=== PATIENT | male | born 1950 | race Caucasian/White ===

== ENCOUNTER 2018-06-06 16:37 | Inpatient (IN) | payer MEDICARE, OTHER ==
[2018-06-06] MEDS ORDERED: hydrALAZINE 20 MG/ML VIAL ONE ×2 (17:46→21:14)
[2018-06-06 18:19] LABS: Bilirubin Negative (Negative); Blood, Urine Trace (Negative); Clarity CLOUDY (Clear); Glucose, Urine (Dipstick) Negative (Negative); Leukocyte Moderate (Negative); Nitrite Negative (Negative); Protein, Urine (Dipstick) > or equal to 300 mg/dL (Neg-Trace); Specific Gravity, Urine 1.023 (1.002-1.036)
[2018-06-06 18:21] LABS: Bacteria/HPF 1+ HPF (None Seen); Hyaline Casts/LPF 0-3 HYALINE CAST LPF (0-3 Hyaline); Squamous Epithelial 0-3 HPF (0-3)
[2018-06-06 18:24] LABS: Yeast-AUWi Flag 117.9 (0-25.0)
[2018-06-06 18:24] LABS: #Eosinphils 0.1 thou/uL (0.0-0.7); #Lymphocytes 0.9 thou/uL (1.20-3.40); #Monocytes 0.5 thou/uL (0.11-0.59); %Basophils 0.2 % (0.0-1.0); %Eosinophils 0.8 % (0.0-10.0); %Lymphocytes 8.6 % (21.0-51.0); %Monocytes 4.9 % (0.0-10.0); %Neutrophils 85.5 % (42.0-75.0); Hemoglobin 20.4 g/dL (14.0-18.0); Mean Corpuscular HGB CONC 32.2 g/dL (32.0-36.0); Mean Corpuscular Hemoglobin 27.3 pg (27.0-31.0); Mean Corpuscular Volume 84.7 fL (78.0-98.0); Mean Platelet Volume 7.9 fL (7.4-10.4); Platelet Count 209 thou/uL (130-400); RBC Distribution Width 15.3 % (11.5-14.5); Red Blood Cell (RBC) Count 7.48 mill/uL (4.70-6.10); White Blood Cell (WBC) Count 10.6 thou/uL (4.8-10.8)
[2018-06-06 18:30] LABS: Yeast-All Forms 1+ HPF (None Seen)
[2018-06-06] MEDS ORDERED: cefTRIAXone\\ROCEPHIN 1 GM VIAL ONE (18:35)
[2018-06-06 18:45] LABS: ALT (SGPT) 22 U/L (8-55); AST (SGOT) 25 U/L (5-34); Albumin 4.5 g/dL (3.4-4.8); Alkaline Phosphatase 99 U/L (40-150); Anion Gap 20 mmol/L (10-20); BUN (Urea Nitrogen) 27 mg/dL (8.4-25.7); Bilirubin, Total 0.8 mg/dL (0.2-1.2); Calc. Creatinine Clearance 0 mL/min (70-130); Calcium 10.7 mg/dL (7.8-10.44); Carbon Dioxide 27 mmol/L (23-31); Chloride 92 mmol/L (98-107); Estimated GFR-MDRD 50; Globulin 3.9 g/dL (2.4-3.5); Glucose 130 mg/dL (80-115); Protein, Total 8.4 g/dL (5.8-8.1); Sodium 136 mmol/L (136-145)
[2018-06-06 18:49] LABS: Potassium 2.9 mmol/L (3.5-5.1)
[2018-06-06 19:03] LABS: CKMB 3.8 ng/mL (0-6.6)
[2018-06-06] MEDS ORDERED: niCARdipine 20MG In NaCl 20 MG/200 ML BAG ONE (19:18)
[2018-06-06] MEDS ORDERED: Potassium Chloride 20 MEQ/100 ML PREMIX BAG ONE (19:19)
[2018-06-06] MEDS ORDERED: Potassium Chloride 20 MEQ in Premix Bag 1 BAG IVPB SCH (19:30)
[2018-06-06 19:34] LABS: PTT 34.6 SEC (22.9-36.1); Prothrombin Time 12.8 SEC (12.0-14.7)
--- NOTE | 2018-06-06 19:37 | RAD ---
FRONTAL VIEW CHEST: 06/06/18 COMPARISON: 08/16/14. INDICATION: Abdominal pain with nausea and vomiting. FINDINGS: There is no evidence of consolidation, effusion or pneumothorax. The cardiac silhouette is normal in size. There is vascular calcifications. IMPRESSION: No focal consolidation. POS: [facility]
[2018-06-06] MEDS ORDERED: Ondansetron PF 4 MG/2 ML Vial IVP PRN (20:26)
[2018-06-06] MEDS ORDERED: Loperamide HCl 2 MG CAP PO PRN (20:26)
[2018-06-06] MEDS ORDERED: Atorvastatin Calcium 20 MG TAB PO SCH (21:00)
[2018-06-06 21:10] LABS: Amphetamine Not Detected (NotDetected); Barbiturates Screen Not Detected (NotDetected); Benzodiazepine Screen Not Detected (NotDetected); Cocaine Metabolite Screen Not Detected (NotDetected); Medtox Control Line Valid? VALID (VALID); Medtox Reader # READER 1; Methadone Not Detected (NotDetected); Methamphetamine Not Detected (NotDetected); Opiate Screen Not Detected (NotDetected); Oxycodone Screen Not Detected (NotDetected); Phencyclidine (PCP) Not Detected (NotDetected); THC/Cannabinoid Screen Not Detected (NotDetected); Tricyclic Screen Not Detected (NotDetected)
--- NOTE | 2018-06-06 21:16 | CT ---
CT BRAIN NONCONTRAST: DATE: 06/06/18 at 6:56 p.m. HISTORY: 67-year-old male with headache. COMPARISON: CT of 08/13/14. FINDINGS: There is a new finding of a very small amount of moderate hyperdensity involving lateral peripheral c ortex of left frontal lobe superolaterally. There is a similar such finding involving one of the right upper parietal gyri. There is a round, punctate, approximately 2 mm focus of hyperdensity in the left occipital cortex. All three of these are new since 2014. There is an old lacunar infarction at the junction between the right caudate head and adjacent anteri or portions of the right basal ganglia, internal capsule and external capsule. This may have been acu te or subacute on the previous CT of 2014, and is now old. There is a tiny old lacunar infarction in the left basal ganglia/external capsule junction, which occ urred sometime after the previous CT. Again noted are the severe chronic ischemic white matter changes in the periventricular, deep, and hopson bcortical white matter of the cerebrum bilaterally. No obstructive hydrocephalus, mass effect, midlin e shift, subdural hemorrhage, epidural hemorrhage, or extra-axial fluid collection. No calvarial frac ture. IMPRESSION: 1. Three, new, very small foci of hemorrhage, apparently intraparenchymal, involving left fronta l cortex and right parietal cortex (both petechial type), plus one punctate such focus in the left pa rieto-occipital junction. The etiology of these is uncertain. 2. Small old lacunar infarction of right corpus striatum, and a tiny one at the left basal gangl ia. 3. Severe chronic ischemic white matter changes. 4. MRI of the brain may be useful (preferably with and without contrast, unless contraindicated) . BARBIE Javed POS: [facility]
[2018-06-06] MEDS ORDERED: Labetalol HCl 200 MG in Sodium Chloride 0.9% 250 ML 160 ML IVPB SCH (22:30)
[2018-06-06] MEDS ORDERED: Lorazepam 2 MG/ML VIAL ONE (22:37)
[2018-06-06] MEDS ORDERED: SODIUM CHLORIDE 0.9% IVPB SCH (23:00)
[2018-06-06] MEDS ORDERED: LABETALOL HCL IVPB SCH (23:00)
--- NOTE | 2018-06-06 23:29 | CT ---
HEAD CT NONCONTRAST: 06/06/18 COMPARISON: Earlier same date. INDICATION: History of altered mental status. History of parenchymal hemorrhage, followup. Blush of subcentimeter hyperdensity of the right parietal lobe is redemonstrated, grossly stable. Pun ctate hyperdensity of the left occipital lobe is less conspicuous. Punctate foci of left frontal lobe hyperdensity have not significantly changed. These findings remain superimposed upon a background of moderate chronic microvascular ischemic disea se as well as deep white matter infarctions and age indeterminate infarction of the right basal gangl ia. No new midline shift. Exam is otherwise grossly stable. Incidental note of circumferential mucosa l thickening and inspissated secretions of the right maxillary sinus with associated wall thickening indicating component of chronicity. Mild chronic appearing concavity of the right nasal bone may rel ate to sequela from remote injury. Correlate with history. IMPRESSION: No significant interval detrimental change. As was previously recommended, constellation of findings would be more optimally assessed with followup brain MRI. POS: [facility]
[2018-06-07 00:46] LABS: CKMB 2.9 ng/mL (0-6.6)
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
[2018-06-07 03:39] LABS: #Lymphocytes 1.4 thou/uL (1.20-3.40); #Monocytes 0.8 thou/uL (0.11-0.59); #Neutrophils 7.6 thou/uL (1.40-6.50); %Basophils 0.3 % (0.0-1.0); %Eosinophils 0.4 % (0.0-10.0); %Lymphocytes 14.3 % (21.0-51.0); %Monocytes 7.9 % (0.0-10.0); Mean Corpuscular HGB CONC 33.1 g/dL (32.0-36.0); Mean Corpuscular Volume 84.7 fL (78.0-98.0); Mean Platelet Volume 7.9 fL (7.4-10.4); Platelet Count 207 thou/uL (130-400); RBC Distribution Width 15.4 % (11.5-14.5); Red Blood Cell (RBC) Count 6.42 mill/uL (4.70-6.10); White Blood Cell (WBC) Count 9.9 thou/uL (4.8-10.8)
[2018-06-07 03:46] LABS: Anion Gap 18 mmol/L (10-20); BUN (Urea Nitrogen) 27 mg/dL (8.4-25.7); Calc. Creatinine Clearance 0 mL/min (70-130); Calcium 9.5 mg/dL (7.8-10.44); Carbon Dioxide 27 mmol/L (23-31); Chloride 95 mmol/L (98-107); Estimated GFR-MDRD 49; Glucose 132 mg/dL (80-115); Sodium 137 mmol/L (136-145)
[2018-06-07 03:55] LABS: Potassium 2.7 mmol/L (3.5-5.1)
[2018-06-07] MEDS ORDERED: Potassium Chloride 20 MEQ in Premix Bag 1 BAG IVPB SCH ×2 (06:00→07:00)
[2018-06-07] MEDS: Potassium Chloride 20 MEQ in Sodium Chloride 0.9% 250 ML 250 ML IVPB SCH ×2 (06:38→09:14)
[2018-06-07] MEDS: hydrALAZINE 20 MG/ML VIAL SLOW IVP PRN ×6 (06:51→18:45)
[2018-06-07 07:23] VITALS: BMI 33.5
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
[2018-06-07] MEDS ORDERED: Aspirin 325 mg Enteric Coated Tablet PO SCH (08:00)
--- NOTE | 2018-06-07 08:05 | CT ---
PRELIMINARY REPORT/[facility]/EMERGENTY AFTER-HOURS PROCEDURE CT Head Without Contrast EXAM DATE/TIME: 06/07/2018 4:59 AM CLINICAL HISTORY: 67 years old, male; Abnormal findings; Abnormal radiologic findings of head/skull; Not specified; Pat ient HX: Iph follow up brain CT. Patient was combative and AMS recently TECHNIQUE: Axial computed tomography images of the head/brain without contrast. COMPARISON: CT Brain WO Con 06/06/2018 11:03 PM FINDINGS: Brain: There is no significant change in posterior right parietal subcortical focus of increased attenuation suspicious for small parenchymal hemorrhage. No mass effect. There are scattered foci of decreased a ttenuation in the periventricular and subcortical white matter, nonspecific, but most consistent with chronic small vessel ischemic changes in patient of this age. Ventricles / cisterns / extra-axial spaces: There is no hydrocephalus, midline shift, or acute extra-axial fluid collection. There is no sulcal e ffacement. Sinuses: No findings of acute sinusitis or suspicious sinus mass. Bone: No acute fracture or displacement. Impression: No significant change. Thank you for allowing us to participate in the care of your patient. Dictated and Authenticated by: Martell Fisher MD 06/07/2018 5:33 AM Central Time ([place] & [place]) FINAL REPORT EMERGENCY AFTER HOURS NONCONTRAST CT HEAD: Date: 06/07/18 HISTORY: Follow-up intracranial hemorrhage. Seizure. COMPARISON: Study on 06/06/18. IMPRESSION: 1. Area of increased density within the right parietal lobe related to is again seen, but less consp icuous. The hyperdense focus within the left occipital lobe is not definitely visualized on today's e xam. Hyperdense focus in the left anterior frontal lobe is less conspicuous. No definite new hyperden se foci are seen. As noted on prior exam, these findings are suggestive of small areas of hemorrhage. Exact etiology is uncertain. As previously recommended, findings would be more optimally evaluated w ith follow-up brain MRI. 2. Moderate to severe chronic small vessel ischemic changes with lacunar infarctions involving the r ight basal ganglia, of which the age is indeterminate, but probably more remote in origin. No acute c ortical infarction is seen. Findings are in disagreement with the preliminary report by Rafael. The areas of hyperdensity within th e parenchyma were not mentioned, although these areas are less conspicuous on today's exam compared t o prior studies. POS: [facility]
--- NOTE | 2018-06-07 08:48 | PRG ---
DATE OF SERVICE: 06/07/2018 SUBJECTIVE: I personally interviewed and examined the patient, and agreed with documentation of Kusum Thacker PA-C, dated 06/06/2018. Briefly, Mr. Boyce came to our Emergency Department yesterday with headache and was found to have hypertensive emergency. CT examination of the brain revealed punctate areas of parenchymal or subarachnoid hemorrhage posteriorly, not causing mass effect, but prompting a Neurosurgery consultation. Mr. 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 Prior to this, with the new findings on brain imaging were more lobar and cortical. Admission hemoglobin was over 20 with a creatinine of 1.4. Toxicology was negative. Overnight, Mr. Boyce has been watched in the ICU. Aggressive blood pressure management has been initiated, and a repeat CT scan is available this morning. Blood pressures as I entered the room were in the 140s. There have been no fevers recorded. OBJECTIVE: On examination, Mr. Boyce has injection of both sclerae. Cranial nerves are working well. There is no speech deficit that I can appreciate. There is no lateralized motor or sensory deficit. LABORATORY DATA: Hemoglobin is coming down slowly, it is under 20, creatinine is still 1.4. CT examination this morning shows some resolution of the blood products suggesting that the bleeding was extra-axial. The right occipital hyperdensity is still somewhat visible. ASSESSMENT AND PLAN: Mr. Boyce' hypertensive emergency and increased hematocrit will be investigated by our colleagues in the medical service. Neurosurgical intervention for the punctate areas of hyperdensity is not required. An MRI scan will show if he has any severe posterior encephalopathy or hypertensive encephalopathy from his systolics in the 240s yesterday. After MR imaging is done, we will review the images and make further comment. Job ID: [id number]
[2018-06-07] MEDS ORDERED: Enoxaparin Sodium 40 MG/0.4 ML SYRINGE SC SCH (09:00)
[2018-06-07] MEDS ORDERED: Lactated Ringer's 1,000 ML IV SCH (11:15)
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
[2018-06-07] MEDS ORDERED: Amlodipine 10 MG TAB PO SCH (15:15)
[2018-06-07 15:50] LABS: Anion Gap 15 mmol/L (10-20); BUN (Urea Nitrogen) 26 mg/dL (8.4-25.7); Calc. Creatinine Clearance 75 mL/min (70-130); Calcium 9.3 mg/dL (7.8-10.44); Carbon Dioxide 26 mmol/L (23-31); Chloride 98 mmol/L (98-107); Estimated GFR-MDRD 51; Glucose 122 mg/dL (80-115); Sodium 136 mmol/L (136-145)
[2018-06-07 15:55] LABS: Potassium 2.7 mmol/L (3.5-5.1)
[2018-06-07] MEDS ORDERED: Potassium Chloride 20 MEQ TAB PO SCH ×2 (16:15→20:00)
--- NOTE | 2018-06-07 18:12 | PDOC.PN ---
- Subjective Encounter Start Date: 06/07/18 Encounter Start Time: 15:11 Subjective: Complaining of headache. -: No limb weakness, chest pain or vomiting. -: Awaiting MRI - Objective Resuscitation Status - Order Detail: 06/06/18 20:26 Resuscitation Status Routine Resuscitation Status: FULL: Full Resuscitation MAR Reviewed: Yes Vital Signs & Weight: Vital Signs (12 hours) Temp Pulse Resp BP BP Pulse Ox 06/07/18 17:49 82 06/07/18 17:33 201/114 H 06/07/18 17:07 82 06/07/18 16:39 97.4 F L 82 18 219/109 H 94 L 06/07/18 15:11 67 180/76 H 06/07/18 13:15 67 180/76 H 06/07/18 12:09 67 180/76 H 06/07/18 12:05 99.8 F H 180/76 H 06/07/18 09:15 71 181/77 H 06/07/18 08:30 100.1 F H 71 21 H 160/67 H 94 L 06/07/18 08:00 94 L 06/07/18 06:51 65 177/81 H Weight Admit Weight 227 lb 4.745 oz Weight 227 lb 4.745 oz Most Recent Monitor Data Heart Rate from ECG 85 NIBP 183/86 NIBP BP-Mean 118 Respiration from ECG 21 SpO2 93 Result Diagrams: 06/07/18 03:21 06/07/18 15:11 Phys Exam - Physical Examination HEENT: PERRLA, moist MMs Neck: no nodes, no JVD Respiratory: no wheezing, no rales Cardiovascular: RRR, no significant murmur Gastrointestinal: soft, non-tender, no distention Musculoskeletal: pulses present Trace left leg edema Neurological: non-focal, moves all 4 limbs Psychiatric: A&O x 3 Dx/Plan (1) Hypertensive emergency Code(s): I16.1 - HYPERTENSIVE EMERGENCY Status: Acute (2) Intraparenchymal hematoma of brain Code(s): S06.360A - TRAUM HEMOR CEREB, W/O LOSS OF CONSCIOUSNESS, INIT Status : Acute (3) Elevated troponin Code(s): R74.8 - ABNORMAL LEVELS OF OTHER SERUM ENZYMES Status: Acute (4) UTI (urinary tract infection) Status: Acute (5) Acute encephalopathy Code(s): G93.40 - ENCEPHALOPATHY, UNSPECIFIED Status: Acute - Plan Start amlodipine 10 mg daily -: Continue prn IVP hydralazine -: Continue other treatment and close monitoring -: Awaiting MRI * .
--- NOTE | 2018-06-07 19:15 | MRI ---
MRI OF BRAIN PERFORMED WITHOUT CONTRAST ENHANCEMENT: 06/07/18 HISTORY: Followup of areas of hemorrhage noted on previous CT exams. COMPARISON: CT studies of 06/07 and 06/06/18. Considerable motion artifact is present on this examination. There is generalized ventricular and sulcal prominence. There is prominent chronic ischemic white mat ter change. On the gradient sequence, there are multiple areas of blooming artifact seen with several punctate ar eas in the cerebellum and also changes which are near the eason-white matter junction over the right f rontal. Also tiny punctate areas over the left frontal and biparietal convexities. These would sugges t small areas of microhemorrhage. IMPRESSION: 1. Atrophy and chronic white matter change. 2. Small punctate foci of hemorrhage in both the cerebellum and cerebrum. These areas could be o n the basis of an entity such as an amyloid angiopathy. Small punctate areas related to hypertensive hemorrhage would not have this typical distribution. Tiny hemorrhagic mass is also felt to be unlikel y. This does not have the typical appearance of multiple vascular malformations. POS: ORTEGA
[2018-06-07] MEDS: cefTRIAXone\\ROCEPHIN 1 GM in Sodium Chloride 0.9% 100 ML IVPB SCH (19:26)
[2018-06-07] MEDS: cloNIDine 0.1 MG TAB PO PRN (20:31)
[2018-06-08] MEDS: cloNIDine 0.1 MG TAB PO PRN (04:02)
[2018-06-08] MEDS: hydrALAZINE 20 MG/ML VIAL SLOW IVP PRN (05:32)
[2018-06-08 05:38] LABS: Anion Gap 13 mmol/L (10-20); BUN (Urea Nitrogen) 26 mg/dL (8.4-25.7); Calc. Creatinine Clearance 71 mL/min (70-130); Calcium 9.1 mg/dL (7.8-10.44); Carbon Dioxide 29 mmol/L (23-31); Chloride 99 mmol/L (98-107); Estimated GFR-MDRD 48; Glucose 103 mg/dL (80-115); Magnesium 2.3 mg/dL (1.6-2.6); Potassium 3.4 mmol/L (3.5-5.1); Sodium 138 mmol/L (136-145)
[2018-06-08] MEDS ORDERED: Labetalol 100 MG TAB PO SCH (09:00)
[2018-06-08] MEDS: Losartan 25 MG TAB PO SCH (09:56)
[2018-06-08] MEDS: Amlodipine 10 MG TAB PO SCH (09:57)
[2018-06-08] MEDS ORDERED: Lactated Ringer's 1,000 ML IV SCH (12:00)
--- NOTE | 2018-06-08 12:01 | PDOC.PN ---
- Subjective Encounter Start Date: 06/08/18 Encounter Start Time: 12:00 Subjective: Headache has subsided. Denied nausea and vomiting. -: Denied focal weakness, visual or speech change. -: tolerating oral intake - Objective Resuscitation Status - Order Detail: 06/06/18 20:26 Resuscitation Status Routine Resuscitation Status: FULL: Full Resuscitation MAR Reviewed: Yes Vital Signs & Weight: Vital Signs (12 hours) Temp Pulse Resp BP BP Pulse Ox 06/08/18 09:57 64 06/08/18 09:56 64 06/08/18 08:55 93 L 06/08/18 07:58 97.7 F 69 20 178/81 H 93 L 06/08/18 07:10 91 L 06/08/18 07:06 68 20 06/08/18 06:55 67 184/86 H 06/08/18 05:32 61 187/88 H 06/08/18 04:02 177/81 H 06/08/18 04:00 98.5 F 67 19 177/81 H 93 L Weight Admit Weight 227 lb 4.745 oz Weight 227 lb 4.745 oz Most Recent Monitor Data Heart Rate from ECG 85 NIBP 183/86 NIBP BP-Mean 118 Respiration from ECG 21 SpO2 93 I&O: 06/07/18 06/08/18 06/09/18 06:59 06:59 06:59 Intake Total 50 350 Output Total 300 Balance -250 350 Result Diagrams: 06/07/18 03:21 06/08/18 04:40 Phys Exam - Physical Examination HEENT: PERRLA, moist MMs, sclera anicteric Neck: no nodes, no JVD, supple, full ROM Respiratory: no wheezing, no rhonchi few bibasal crackles Cardiovascular: RRR, no significant murmur, no rub Gastrointestinal: soft, non-tender, no distention, positive bowel sounds Musculoskeletal: no edema, pulses present Neurological: non-focal, normal sensation, moves all 4 limbs Psychiatric: normal affect, A&O x 3 Skin: no rash Dx/Plan (1) Acute encephalopathy Code(s): G93.40 - ENCEPHALOPATHY, UNSPECIFIED Status: Acute (2) Hypertensive emergency Code(s): I16.1 - HYPERTENSIVE EMERGENCY Status: Acute (3) Elevated troponin Code(s): R74.8 - ABNORMAL LEVELS OF OTHER SERUM ENZYMES Status: Acute (4) UTI (urinary tract infection) Status: Acute (5) Intraparenchymal hematoma of brain Code(s): S06.360A - TRAUM HEMOR CEREB, W/O LOSS OF CONSCIOUSNESS, INIT Status : Acute (6) CVA (cerebral vascular accident) Code(s): I63.9 - CEREBRAL INFARCTION, UNSPECIFIED Status: Acute (7) Hypokalemia Code(s): E87.6 - HYPOKALEMIA Status: Acute (8) Polycythemia Code(s): D75.1 - SECONDARY POLYCYTHEMIA Status: Acute - Plan Add losartan and labetalol to amlodipine to get adequate BP control. -: Replete serum potassium -: Get Neurology consult as well PT/OT and BUSINESS SUPPORT ASSOCIATE -: Start gentle IVF hydration to see if there is a reversible MASSIEL -: continue neurochecks * .
[2018-06-08] MEDS ORDERED: Potassium Chloride 20 MEQ TAB PO SCH ×2 (12:15→19:00)
[2018-06-08] MEDS ORDERED: Lactated Ringer's 500 ML IV SCH (14:30)
--- NOTE | 2018-06-08 16:10 | PDOC.EVN ---
Event Note - Event Note Event Note: Developed acute mental status changes of decreased responsiveness. SBP was noted to be 119. patient recieved amlodipine, lorsatan and labetalol earlier for SBP that has been consistent at 180 - 200 Treated with LR bolus with improved of BP and mental status. We will DC labetalol and monitor BP closely.
[2018-06-08] MEDS: cefTRIAXone\\ROCEPHIN 1 GM in Sodium Chloride 0.9% 100 ML IVPB SCH (19:22)
--- NOTE | 2018-06-08 19:45 | PRG ---
DATE OF SERVICE: SERVICE: Pulmonary Medicine. INTERVAL HISTORY: The patient is doing fine from respiratory standpoint. He is breathing comfortably. There has been no interval change to his condition. Denies any chest pain, nausea, vomiting, fevers or chills. He is resting very comfortably. He woke up smoothly. He answered all my questions. Afterwards, he went back to sleep. PHYSICAL EXAMINATION: VITAL SIGNS: Afebrile with a T-max of 99.6. Pulse 60, blood pressure 142/67, respirations 20, and saturation 93% on 2 L nasal cannula. GENERAL: The patient is awake and alert, in no apparent distress. LUNGS: Decent air entry. There is a prolonged expiratory phase. No wheezing. HEART: Normal rate, regular. ABDOMEN: Soft, nontender, and nondistended. Bowel sounds are positive. MUSCULOSKELETAL: No cyanosis or clubbing. There is no pitting in the bilateral lower extremities. NEUROLOGIC: Grossly nonfocal. LABORATORY DATA: Creatinine 1.46 and roughly stable. Potassium 3.4. Respiratory virus panel is unremarkable. Blood cultures x2, urine culture, influenza A and B are also negative. IMAGING: MRI of the brain demonstrates no atrophy and chronic white matter change. There is small punctate foci of hemorrhage in both the cerebellum and cerebrum. Amyloid angiopathy is a possibility. Hemorrhagic masses are felt to be much less likely. ASSESSMENT: 1. Hypertensive emergency. 2. Gastroenteritis, recent. 3. Dehydration, mild. 4. Cerebrovascular accident, very small. DISCUSSION AND PLAN: We will wean away oxygen as tolerated. The patient is doing fine from respiratory standpoint. He has no further requirements for inpatient Pulmonary Critical Care opinion, and I will sign off. Potassium will be replaced today. I do believe that much of his hypertension came from his previous dehydration state. As such, it would not surprise me if he needs fewer antihypertensive medications through time. Job ID: [id number]
[2018-06-09 05:41] LABS: #Basophils 0.1 thou/uL (0.0-0.2); #Eosinphils 0.2 thou/uL (0.0-0.7); #Lymphocytes 1.3 thou/uL (1.20-3.40); #Neutrophils 6.3 thou/uL (1.40-6.50); %Basophils 0.7 % (0.0-1.0); %Eosinophils 2.2 % (0.0-10.0); %Lymphocytes 14.5 % (21.0-51.0); %Monocytes 11.2 % (0.0-10.0); %Neutrophils 71.5 % (42.0-75.0); Hemoglobin 15.4 g/dL (14.0-18.0); Mean Corpuscular HGB CONC 32.5 g/dL (32.0-36.0); Mean Corpuscular Hemoglobin 28.1 pg (27.0-31.0); Mean Corpuscular Volume 86.3 fL (78.0-98.0); Mean Platelet Volume 7.9 fL (7.4-10.4); Platelet Count 164 thou/uL (130-400); RBC Distribution Width 15.7 % (11.5-14.5); White Blood Cell (WBC) Count 8.9 thou/uL (4.8-10.8)
[2018-06-09 05:59] LABS: ALT (SGPT) 13 U/L (8-55); AST (SGOT) 15 U/L (5-34); Albumin 3.3 g/dL (3.4-4.8); Alkaline Phosphatase 63 U/L (40-150); Anion Gap 13 mmol/L (10-20); BUN (Urea Nitrogen) 27 mg/dL (8.4-25.7); Bilirubin, Total 0.5 mg/dL (0.2-1.2); Calc. Creatinine Clearance 81 mL/min (70-130); Calcium 8.9 mg/dL (7.8-10.44); Carbon Dioxide 27 mmol/L (23-31); Chloride 101 mmol/L (98-107); Estimated GFR-MDRD 56; Globulin 2.5 g/dL (2.4-3.5); Glucose 100 mg/dL (80-115); Potassium 3.7 mmol/L (3.5-5.1); Protein, Total 5.8 g/dL (5.8-8.1); Sodium 137 mmol/L (136-145)
[2018-06-09] MEDS: Amlodipine 10 MG TAB PO SCH ×2 (08:35→20:03)
[2018-06-09] MEDS: Losartan 25 MG TAB PO SCH (08:35)
--- NOTE | 2018-06-09 10:44 | CON ---
DATE OF CONSULTATION: 06/09/2018 NEUROLOGY CONSULTATION CONSULTING PHYSICIAN: Hospitalist Service. IMPRESSION: Multiple areas of cerebral hemorrhage suggesting the possibility of amyloid angiopathy. PLAN: 1. Discontinue aspirin. 2. Control blood pressure. HISTORY OF PRESENT ILLNESS: Mr. Boyce is a 67-year-old man came in with complaints of a headache. His CT scan of the brain showed three areas of hemorrhage. He was initially hypertensive with blood pressures around 207/89. He became a bit lethargic after they dropped his blood pressure. He has been consulted on by neurosurgery. The patient is now back to a normal level of consciousness. He is without any particular complaints. PAST MEDICAL HISTORY: Hypertension. ALLERGIES: CODEINE. SOCIAL HISTORY: Unremarkable. FAMILY HISTORY: Noncontributory. MEDICATIONS: Medication list was reviewed. REVIEW OF SYSTEMS: Ten-system review of systems was otherwise negative. PHYSICAL EXAMINATION: VITAL SIGNS: Blood pressure 207/89, pulse 75, respirations 20. HEENT: Within normal limits. NEUROLOGIC: He is alert and cooperative. His speech is fluent and clear. His exam is nonfocal. SUMMARY: An elderly male with hypertension, multiple small areas of hemorrhage. He has no significant findings, otherwise. Get his blood pressure under control and discontinue aspirin. Job ID: [id number]
[2018-06-09] MEDS: hydrALAZINE 20 MG/ML VIAL SLOW IVP PRN ×3 (10:59→22:23)
--- NOTE | 2018-06-09 14:16 | PDOC.PN ---
- Subjective Encounter Start Date: 06/09/18 Encounter Start Time: 14:14 Subjective: feels weak and dizzy and c/o chest hurting and teeth cold -: no SOB -: symptoms resolved in few minutes - Objective Resuscitation Status - Order Detail: 06/09/18 14:12 Resuscitation Status Routine Resuscitation Status: DNAR: NO Resuscitation Discussed with: pt signed consent of same with palliative care team MAR Reviewed: Yes Vital Signs & Weight: Vital Signs (12 hours) Temp Pulse Resp BP BP Pulse Ox 06/09/18 11:54 97.2 F L 83 20 177/98 H 95 06/09/18 10:59 71 192/77 H 06/09/18 10:55 71 192/77 H 06/09/18 08:35 75 207/89 H 06/09/18 08:00 98.4 F 75 20 207/89 H 92 L 06/09/18 06:36 62 16 91 L 06/09/18 03:35 99.2 F 73 20 177/73 H 92 L Weight Admit Weight 227 lb 4.745 oz Weight 227 lb 4.745 oz Most Recent Monitor Data Heart Rate from ECG 85 NIBP 183/86 NIBP BP-Mean 118 Respiration from ECG 21 SpO2 93 I&O: 06/08/18 06/09/18 06/10/18 06:59 06:59 06:59 Intake Total 50 1544 600 Output Total 300 1125 450 Balance -250 419 150 Result Diagrams: 06/09/18 05:16 06/09/18 05:16 Additional Labs: Microbiology 06/07/18 15:50 Nasopharyngeal swab Respiratory Panel (PCR) - Final 06/06/18 17:57 Urine voided Urine Culture - Final 06/06/18 17:41 Nasal swab Influenza Types A,B Direct EIA - Final 06/06/18 19:27 Venous blood - Left Hand Blood Culture - Preliminary NO GROWTH AT 48 HOURS 06/06/18 19:18 Venous blood - Right Arm Blood Culture - Preliminary NO GROWTH AT 48 HOURS Laboratory Tests 06/06/18 06/07/18 06/07/18 17:40 03:21 15:11 Potassium 2.9 L* 2.7 L* 2.7 L* Creatinine 1.40 H 1.43 H 1.38 H 06/08/18 06/09/18 04:40 05:16 Potassium 3.4 L 3.7 Creatinine 1.46 H 1.27 Phys Exam - Physical Examination Constitutional: NAD dishevelled HEENT: PERRLA, moist MMs, sclera anicteric, oral pharynx no lesions Neck: no nodes, no JVD, supple, full ROM Respiratory: no wheezing, no rales, no rhonchi, clear to auscultation bilateral Cardiovascular: RRR, no significant murmur Gastrointestinal: soft, non-tender, no distention, positive bowel sounds Musculoskeletal: no edema, pulses present Neurological: non-focal, normal sensation, moves all 4 limbs Psychiatric: normal affect, A&O x 3 Dx/Plan (1) Hypertensive emergency Code(s): I16.1 - HYPERTENSIVE EMERGENCY Status: Acute Comment: much improved. (2) UTI (urinary tract infection) Status: Acute Comment: on Rocephin. Cx negative so far (3) Intraparenchymal hematoma of brain Code(s): S06.360A - TRAUM HEMOR CEREB, W/O LOSS OF CONSCIOUSNESS, INIT Status : Acute Comment: Suspect Amyloid angiopathy. (4) Dehydration Code(s): E86.0 - DEHYDRATION Status: Acute (5) Acute encephalopathy Code(s): G93.40 - ENCEPHALOPATHY, UNSPECIFIED Status: Acute (6) Hypokalemia Code(s): E87.6 - HYPOKALEMIA Status: Acute (7) H/O: CVA (cerebrovascular accident) Code(s): Z86.73 - PRSNL HX OF TIA (TIA), AND CEREB INFRC W/O RESID DEFICITS Status: Acute - Plan continue antibiotics, PT/OT, incentive spirometry, out of bed/ambulate, DVT proph w/SCDs clinically better. avoid drastic BP reduction. labetalol stopped d/t drop -: restart HCTZ and monitor.cont amlodipine & losartan -: Empiric ABX.follow Cx results -: Rehab eval.pt lives alone. -: ASA stopped.h/o cva. not on statin.check lipid panel * . Review of Systems - Review of Systems Constitutional: weakness, malaise. negative: fever, chills, sweats, other Respiratory: negative: Cough, Dry, Shortness of Breath, Hemoptysis, SOB with Excertion, Pleuritic Pain, Sputum, Wheezing Cardiovascular: chest pain, light headedness. negative: palpitations, orthopnea , paroxysmal nocturnal dyspnea, edema, other Gastrointestinal: negative: Nausea, Vomiting, Abdominal Pain, Diarrhea, Constipation, Melena, Hematochezia, Other Genitourinary: negative: Dysuria, Frequency, Incontinence, Hematuria, Retention , Other Musculoskeletal: negative: Neck Pain, Shoulder Pain, Arm Pain, Back Pain, Hand Pain, Leg Pain, Foot Pain, Other Neurological: negative: Weakness, Numbness, Incoordination, Change in Speech, Confusion, Seizures, Other - Medications/Allergies Allergies/Adverse Reactions: Allergies Allergy/AdvReac Type Severity Reaction Status Date / Time codeine AdvReac Mild Anxiety Verified 06/07/18 07:20 Medications: Current Medications Albuterol/Ipratropium (Duoneb) 3 ml NEB TID-RT [facility] Last Admin: 06/09/18 13:56 Dose: 3 ml Amlodipine Besylate (Norvasc) 10 mg PO DAILY [facility] Last Admin: 06/09/18 08:35 Dose: 10 mg Clonidine (Catapres) 0.1 mg PO Q4H PRN PRN Reason: KEEP SBP <160 Last Admin: 06/08/18 04:02 Dose: 0.1 mg Hydralazine HCl (Apresoline) 10 mg SLOW IVP Q15MIN PRN PRN Reason: SBP > 160, DBP > 100 Last Admin: 06/09/18 10:59 Dose: 10 mg Hydrochlorothiazide (Hydrochlorothiazide) 25 mg PO DAILY [facility] Ceftriaxone Sodium 1 gm/ (Sodium Chloride) 100 mls @ 200 mls/hr IVPB Q24HR [facility] Last Admin: 06/08/18 19:22 Dose: 100 mls Labetalol HCl (Labetalol Hcl) 10 mg SLOW IVP Q4H PRN PRN Reason: SBP > 160, DBP > 100 Last Admin: 06/07/18 21:57 Dose: 10 mg Loperamide HCl (Imodium) 4 mg PO ONE PRN PRN Reason: Diarrhea/Loose Stools Stop: 06/09/18 20:27 Losartan Potassium (Cozaar) 100 mg PO DAILY [facility] Last Admin: 06/09/18 08:35 Dose: 100 mg Ondansetron HCl (Zofran) 4 mg IVP Q6H PRN PRN Reason: Nausea/Vomiting Last Admin: 06/07/18 18:44 Dose: 4 mg Sodium Chloride (Flush - Normal Saline) 10 ml IVF Q12HR [facility] Last Admin: 06/09/18 08:35 Dose: 10 ml Sodium Chloride (Flush - Normal Saline) 10 ml IVF PRN PRN PRN Reason: Saline Flush
[2018-06-09] MEDS ORDERED: Hydrochlorothiazide 25 MG TAB PO SCH (14:30)
[2018-06-09] MEDS: cefTRIAXone\\ROCEPHIN 1 GM in Sodium Chloride 0.9% 100 ML IVPB SCH (17:21)
[2018-06-09] MEDS: Acetaminophen 325 MG TAB PO PRN (18:27)
[2018-06-10] MEDS: cloNIDine 0.1 MG TAB PO PRN (04:52)
[2018-06-10 06:31] LABS: Anion Gap 13 mmol/L (10-20); BUN (Urea Nitrogen) 22 mg/dL (8.4-25.7); Calc. Creatinine Clearance 88 mL/min (70-130); Calcium 9.2 mg/dL (7.8-10.44); Carbon Dioxide 26 mmol/L (23-31); Cardiac Risk 6.2 (Less than 4.5); Chloride 101 mmol/L (98-107); Cholesterol 173 mg/dl (< 200 Desired); Estimated GFR-MDRD 62; Glucose 94 mg/dL (80-115); HDL Cholesterol 28 mg/dL (>60 Neg Risk); LDL Cholesterol, Calculated 118 mg/dL; Potassium 3.2 mmol/L (3.5-5.1); Sodium 137 mmol/L (136-145); Triglycerides 137 mg/dL (Less than 150)
[2018-06-10] MEDS: Losartan 25 MG TAB PO SCH (09:59)
[2018-06-10] MEDS: Hydrochlorothiazide 25 MG TAB PO SCH (09:59)
[2018-06-10] MEDS: Amlodipine 10 MG TAB PO SCH ×2 (10:00→22:23)
[2018-06-10] MEDS ORDERED: hydrALAZINE 25 MG TAB PO SCH (10:00)
[2018-06-10] MEDS: Acetaminophen 325 MG TAB PO PRN (10:01)
--- NOTE | 2018-06-10 11:33 | PDOC.PN ---
- Subjective Encounter Start Date: 06/10/18 Encounter Start Time: 07:40 Pt seen for followup re: hypertensive urgency. No complaints. - Objective Resuscitation Status - Order Detail: 06/09/18 14:12 Resuscitation Status Routine Resuscitation Status: DNAR: NO Resuscitation Discussed with: pt signed consent of same with palliative care team MAR Reviewed: Yes Vital Signs & Weight: Vital Signs (12 hours) Temp Pulse Pulse Resp BP BP Pulse Ox 06/10/18 11:14 79 06/10/18 10:22 76 193/90 H 06/10/18 10:00 79 06/10/18 07:36 97.6 F 71 16 173/86 H 97 06/10/18 07:22 95 06/10/18 07:19 75 16 95 06/10/18 03:36 97.6 F 85 20 182/92 H 94 L 06/10/18 01:07 70 158/58 H 06/10/18 00:24 99.4 F 76 20 169/80 H 95 Weight Admit Weight 227 lb 4.745 oz Weight 227 lb 4.745 oz Most Recent Monitor Data Heart Rate from ECG 85 NIBP 183/86 NIBP BP-Mean 118 Respiration from ECG 21 SpO2 93 I&O: 06/09/18 06/10/18 06/11/18 06:59 06:59 06:59 Intake Total 1544 900 300 Output Total 0762 330 1820 Balance 419 -25 -975 Result Diagrams: 06/09/18 05:16 06/10/18 05:35 EKG Reviewed by me: Yes (Tele: NSR) Phys Exam - Physical Examination Constitutional: NAD HEENT: moist MMs Neck: supple Respiratory: clear to auscultation bilateral Cardiovascular: RRR Gastrointestinal: soft Neurological: moves all 4 limbs Psychiatric: normal affect Dx/Plan (1) Hypertensive urgency Code(s): I16.0 - HYPERTENSIVE URGENCY Status: Acute Comment: BP still high, add hydralazine (2) Intracranial bleed Code(s): I62.9 - NONTRAUMATIC INTRACRANIAL HEMORRHAGE, UNSPECIFIED Status: Acute Comment: Suspected amyloid angiopathy. Appreciate neurosurgery input. - Plan * . Review of Systems - Review of Systems Cardiovascular: negative: chest pain, palpitations, orthopnea, paroxysmal nocturnal dyspnea, edema, light headedness Gastrointestinal: negative: Nausea, Vomiting, Abdominal Pain, Diarrhea, Constipation, Melena, Hematochezia - Medications/Allergies Allergies/Adverse Reactions: Allergies Allergy/AdvReac Type Severity Reaction Status Date / Time codeine AdvReac Mild Anxiety Verified 06/07/18 07:20 Medications: Current Medications Acetaminophen (Tylenol) 325 mg PO Q6H PRN PRN Reason: Headache or MILD Pain Last Admin: 06/10/18 10:01 Dose: 325 mg Albuterol/Ipratropium (Duoneb) 3 ml NEB TID-RT [facility] Last Admin: 06/10/18 07:19 Dose: 3 ml Amlodipine Besylate (Norvasc) 10 mg PO BID [facility] Last Admin: 06/10/18 10:00 Dose: 10 mg Clonidine (Catapres) 0.1 mg PO Q4H PRN PRN Reason: KEEP SBP <160 Last Admin: 06/10/18 04:52 Dose: 0.1 mg Hydralazine HCl (Apresoline) 10 mg SLOW IVP Q15MIN PRN PRN Reason: SBP > 160, DBP > 100 Last Admin: 06/09/18 22:23 Dose: 10 mg Hydralazine HCl (Apresoline) 25 mg PO QID [facility] Hydrochlorothiazide (Hydrochlorothiazide) 25 mg PO DAILY [facility] Last Admin: 06/10/18 09:59 Dose: 25 mg Ceftriaxone Sodium 1 gm/ (Sodium Chloride) 100 mls @ 200 mls/hr IVPB Q24HR [facility] Last Admin: 06/09/18 17:21 Dose: 100 mls Labetalol HCl (Labetalol Hcl) 10 mg SLOW IVP Q4H PRN PRN Reason: SBP > 160, DBP > 100 Last Admin: 06/07/18 21:57 Dose: 10 mg Losartan Potassium (Cozaar) 100 mg PO DAILY [facility] Last Admin: 06/10/18 09:59 Dose: 100 mg Ondansetron HCl (Zofran) 4 mg IVP Q6H PRN PRN Reason: Nausea/Vomiting Last Admin: 06/07/18 18:44 Dose: 4 mg Sodium Chloride (Flush - Normal Saline) 10 ml IVF Q12HR [facility] Last Admin: 06/10/18 10:00 Dose: 10 ml Sodium Chloride (Flush - Normal Saline) 10 ml IVF PRN PRN PRN Reason: Saline Flush Last Admin: 06/09/18 22:23 Dose: 10 ml
[2018-06-10] MEDS: hydrALAZINE 25 MG TAB PO SCH ×3 (14:01→22:24)
[2018-06-10] MEDS ORDERED: Acetaminophen 325 MG TAB PO PRN (15:51)
[2018-06-10] MEDS: Potassium Chloride 20 MEQ TAB PO SCH ×2 (16:26→22:22)
[2018-06-10] MEDS: cefTRIAXone\\ROCEPHIN 1 GM in Sodium Chloride 0.9% 100 ML IVPB SCH (18:51)
[2018-06-11] MEDS: hydrALAZINE 20 MG/ML VIAL SLOW IVP PRN (01:19)
[2018-06-11] MEDS: cloNIDine 0.1 MG TAB PO PRN (04:21)
[2018-06-11] MEDS: Amlodipine 10 MG TAB PO SCH ×2 (09:13→21:23)
[2018-06-11] MEDS: hydrALAZINE 25 MG TAB PO SCH ×4 (09:14→21:21)
[2018-06-11] MEDS: Losartan 25 MG TAB PO SCH (09:15)
[2018-06-11] MEDS: Hydrochlorothiazide 25 MG TAB PO SCH (09:16)
--- NOTE | 2018-06-11 14:47 | PDOC.PN ---
- Subjective Encounter Start Date: 06/11/18 Encounter Start Time: 11:20 Pt seen for followup re: hypertensive urgency. No complaints today. - Objective Resuscitation Status - Order Detail: 06/09/18 14:12 Resuscitation Status Routine Resuscitation Status: DNAR: NO Resuscitation Discussed with: pt signed consent of same with palliative care team Vital Signs & Weight: Vital Signs (12 hours) Temp Pulse Resp BP BP BP Pulse Ox 06/11/18 13:27 84 154/87 H 06/11/18 13:12 84 16 94 L 06/11/18 11:35 154/87 H 06/11/18 10:42 98.6 F 71 16 180/86 H 97 06/11/18 09:14 70 149/84 H 06/11/18 09:13 70 149/84 H 06/11/18 08:55 98 06/11/18 07:39 99 F 70 16 149/84 H 98 06/11/18 07:38 94 L 06/11/18 07:36 74 16 94 L 06/11/18 05:17 156/83 H 06/11/18 04:21 176/84 H 06/11/18 04:00 99.3 F 73 18 176/83 H 93 L Weight Admit Weight 227 lb 4.745 oz Weight 227 lb 4.745 oz Most Recent Monitor Data Heart Rate from ECG 85 NIBP 183/86 NIBP BP-Mean 118 Respiration from ECG 21 SpO2 93 I&O: 06/10/18 06/11/18 06/12/18 06:59 06:59 06:59 Intake Total 900 1080 880 Output Total 925 1375 175 Balance -25 -295 705 Result Diagrams: 06/09/18 05:16 06/10/18 05:35 Phys Exam - Physical Examination Obese HEENT: moist MMs Neck: supple Respiratory: clear to auscultation bilateral Cardiovascular: RRR Gastrointestinal: soft Neurological: moves all 4 limbs Psychiatric: normal affect Dx/Plan (1) Hypertensive urgency Code(s): I16.0 - HYPERTENSIVE URGENCY Status: Acute Comment: Improved (2) Intracranial bleed Code(s): I62.9 - NONTRAUMATIC INTRACRANIAL HEMORRHAGE, UNSPECIFIED Status: Acute Comment: Suspected amyloid angiopathy. - Plan * . Pt still on supplemental oxygen. Review of Systems - Review of Systems Respiratory: negative: Cough, Shortness of Breath, SOB with Excertion, Pleuritic Pain, Wheezing Cardiovascular: negative: chest pain, palpitations, orthopnea, paroxysmal nocturnal dyspnea, edema, light headedness - Medications/Allergies Allergies/Adverse Reactions: Allergies Allergy/AdvReac Type Severity Reaction Status Date / Time codeine AdvReac Mild Anxiety Verified 06/07/18 07:20 Medications: Current Medications Acetaminophen (Tylenol) 650 mg PO Q6H PRN PRN Reason: Headache or MILD Pain Albuterol/Ipratropium (Duoneb) 3 ml NEB TID-RT [facility] Last Admin: 06/11/18 13:12 Dose: 3 ml Amlodipine Besylate (Norvasc) 10 mg PO BID [facility] Last Admin: 06/11/18 09:13 Dose: 10 mg Clonidine (Catapres) 0.1 mg PO Q4H PRN PRN Reason: KEEP SBP <160 Last Admin: 06/11/18 04:21 Dose: 0.1 mg Hydralazine HCl (Apresoline) 10 mg SLOW IVP Q15MIN PRN PRN Reason: SBP > 160, DBP > 100 Last Admin: 06/11/18 01:19 Dose: 10 mg Hydralazine HCl (Apresoline) 25 mg PO QID [facility] Last Admin: 06/11/18 13:27 Dose: 25 mg Hydrochlorothiazide (Hydrochlorothiazide) 25 mg PO DAILY [facility] Last Admin: 06/11/18 09:16 Dose: 25 mg Ceftriaxone Sodium 1 gm/ (Sodium Chloride) 100 mls @ 200 mls/hr IVPB Q24HR [facility] Last Admin: 06/10/18 18:51 Dose: 100 mls Labetalol HCl (Labetalol Hcl) 10 mg SLOW IVP Q4H PRN PRN Reason: SBP > 160, DBP > 100 Last Admin: 06/07/18 21:57 Dose: 10 mg Losartan Potassium (Cozaar) 100 mg PO DAILY [facility] Last Admin: 06/11/18 09:15 Dose: 100 mg Ondansetron HCl (Zofran) 4 mg IVP Q6H PRN PRN Reason: Nausea/Vomiting Last Admin: 06/07/18 18:44 Dose: 4 mg Sodium Chloride (Flush - Normal Saline) 10 ml IVF Q12HR [facility] Last Admin: 06/11/18 09:16 Dose: 10 ml Sodium Chloride (Flush - Normal Saline) 10 ml IVF PRN PRN PRN Reason: Saline Flush Last Admin: 06/09/18 22:23 Dose: 10 ml
[2018-06-12] MEDS: cloNIDine 0.1 MG TAB PO PRN (05:39)
[2018-06-12 06:24] LABS: #Eosinphils 0.3 thou/uL (0.0-0.7); #Lymphocytes 1.1 thou/uL (1.20-3.40); #Neutrophils 5.7 thou/uL (1.40-6.50); %Basophils 0.5 % (0.0-1.0); %Eosinophils 3.7 % (0.0-10.0); %Lymphocytes 13.9 % (21.0-51.0); %Monocytes 11.9 % (0.0-10.0); %Neutrophils 69.9 % (42.0-75.0); Hemoglobin 16.5 g/dL (14.0-18.0); Mean Corpuscular HGB CONC 32.7 g/dL (32.0-36.0); Mean Corpuscular Hemoglobin 28.2 pg (27.0-31.0); Mean Corpuscular Volume 86.2 fL (78.0-98.0); Mean Platelet Volume 7.6 fL (7.4-10.4); Platelet Count 232 thou/uL (130-400); RBC Distribution Width 15.6 % (11.5-14.5); Red Blood Cell (RBC) Count 5.84 mill/uL (4.70-6.10); White Blood Cell (WBC) Count 8.2 thou/uL (4.8-10.8)
[2018-06-12 06:41] LABS: Anion Gap 14 mmol/L (10-20); BUN (Urea Nitrogen) 21 mg/dL (8.4-25.7); Calc. Creatinine Clearance 87 mL/min (70-130); Calcium 9.9 mg/dL (7.8-10.44); Carbon Dioxide 25 mmol/L (23-31); Chloride 101 mmol/L (98-107); Estimated GFR-MDRD 61; Glucose 89 mg/dL (80-115); Potassium 3.6 mmol/L (3.5-5.1); Sodium 136 mmol/L (136-145)
[2018-06-12] MEDS: Hydrochlorothiazide 25 MG TAB PO SCH (07:54)
[2018-06-12] MEDS: Losartan 25 MG TAB PO SCH (07:54)
[2018-06-12] MEDS: Amlodipine 10 MG TAB PO SCH (07:54)
[2018-06-12] MEDS: hydrALAZINE 25 MG TAB PO SCH ×2 (07:55→14:26)
--- NOTE | 2018-06-12 09:24 | PQF ---
Jordyn HURTADO JR NAYELI [id number] Room: 219 [id number] CLINICAL DOCUMENTATION IMPROVEMENT CLARIFICATION FORM: ICD-10 Updated PLEASE DO AN ADDENDUM TO THE PROGRESS NOTE WITH ANY DOCUMENTATION UPDATES OR ADDITIONS AND CARRY THROUGH TO DC SUMMARY. THANK YOU. DATE: 06-12-18 ATTN: DR. FIGUEROA Please exercise your independent, professional judgment in responding to the clarification form. Clinical indicators are provided on the bottom of this form for your review Please check appropriate box(s): [ ] Acute Encephalopathy - Hypertensive [ ] Acute Encephalopathy - Metabolic [ ] Acute Encephalopathy [ ] Other diagnosis [ ] Unable to determine For continuity of documentation, please document condition throughout progress notes and discharge summary. Thank You. CLINICAL INDICATORS - SIGNS / SYMPTOMS / LABS Labs: Potassium - 2.9 2-1 2.7 06-06 (Jairo) H&P: Change in Mental Status, Pt now lathargic, Acute Encephathy secondary to intracranial bleed 2-1 (Justin): Possible severe Posterior Encephalopathy or Hypertensive Encephalpathy 2-1 (Obi): Acute Encephalopathy 2-3 (Genaro): Acute Encephalopathy RISK FACTORS 1-31 H&P (Jairo): * BP 249/139; arousable, lethargic, oriented, not in acute distress * Intracranial Bleeding - presenting w/ hypertensive emergency - patient has gone into sever chest pain, severe sweating, and change in mental status. Cardene drip stopped, I'm going to try w/ labetalol drip at a low dose w/ no bolus to see if pt can tolerate better. TREATMENTS: 1-31 H&P (Jairo): * Cardene drip stopped, I'm going to try w/ labetalol drip at a low dose w/ no bolus to see if pt can tolerate better. * Consult Neurosurgery * repeat CT scan THANK YOU, MINERVA (This form is maintained as a part of the permanent medical record) 2014 [employer]. All Rights Reserved Minerva Mendez RN, [email or web address]
[2018-06-12 12:11] VITALS: TEMP 98
[2018-06-12 14:33] VITALS: BP 156/89
--- NOTE | 2018-06-12 23:50 | DIS ---
DATE OF ADMISSION: 06/06/2018 DATE OF DISCHARGE: 06/12/2018 PRIMARY CARE PROVIDER: Jose Medina MD DISCHARGE DIAGNOSES: 1. Intracranial bleed. 2. Acute hypertensive encephalopathy. 3. Hypertensive urgency. CONSULTATIONS DURING THIS HOSPITALIZATION: 1. Neurology, Dr. Kauffman. 2. Neurosurgery, Dr. Anderson. DISCHARGE MEDICATIONS: 1. Aspirin has been discontinued. He is being discharged home on: 1. Hydrochlorothiazide 25 mg daily. 2. Losartan 100 mg daily. 3. Amlodipine 10 mg two times a day. 4. Hydralazine 50 mg 4 times a day. CONDITION OF PATIENT ON THE DAY OF DISCHARGE: Stable. I assessed Mr. Boyce on the day of discharge. He denies any chest pain or shortness of breath. Vital signs are stable. S1 and S2 are heard, regular. Lungs are clear to auscultation bilaterally. HOSPITAL COURSE: Mr. Boyce is a pleasant 67-year-old gentleman, who was admitted to [facility] on June 06, 2018, for hypertensive emergency and intracranial bleed. Please refer to Dr. Gill's history and physical note dated June 06, 2018, for further details. MRI of the brain done on June 07 showed atrophy and chronic white matter change. He also had small punctate foci of hemorrhage in both the cerebellum and cerebrum. These areas could be on the basis of any entities such as amyloid angiopathy. Radiologist opinion is that small punctate areas related to hypertensive hemorrhage would not have this typical distribution. Tiny hemorrhagic mass was also felt to be unlikely. It did not have the typical appearance of multiple vascular malformations. He was initially treated with intravenous antihypertensive drip, subsequently transitioned to oral antihypertensives. He was also seen by Neurology Service. Aspirin was discontinued. His blood pressure improved. He is being discharged home in a stable condition. He was advised to check his blood pressure and heart rate 3 times a day and show the readings to his primary care provider. Many thanks for allowing me to participate in your patient's care. Please feel free to contact me with any questions or concerns. DISCHARGE DESTINATION: Home. TIME SPENT: Total amount of time spent coordinating this discharge: 32 minutes. Job ID: [id number] MTDD
== END 2018-06-12 15:50 | disposition home or self-care (01) | DRG 65 ==
LOC: ERS 16:37 → ERHOLD 19:33 → IMCU/EMU 06-07 05:52 → 2SE 06-07 16:11
PROVIDERS: ADMIT Emergency Medicine; ATTEND Emergency Medicine
DX: I62.9 Nontraumatic intracranial hemorrhage, unspecified (principal); N39.0 Urinary tract infection, site not specified; I67.4 Hypertensive encephalopathy; I10 Essential (primary) hypertension; I16.0 Hypertensive urgency; F17.210 Nicotine dependence, cigarettes, uncomplicated; R74.8 Abnormal levels of other serum enzymes; E87.6 Hypokalemia; D75.1 Secondary polycythemia; E86.0 Dehydration; Z79.82 Long term (current) use of aspirin; Z86.73 Personal history of transient ischemic attack (TIA), and cerebral infarction without residual deficits; Z90.49 Acquired absence of other specified parts of digestive tract
CPT/HCPCS: 36415; 70450; 70551; 71045; 80048; 80053; 80061; 80306; 81003; 81015; 82553; 83735; 83880; 84484; 85025; 85610; 85730; 86850; 86900; 86901; 87040; 87086; 87633; 87798; 87804; 93005; 94640; 96365; 96366; 96367; 96375; 96376; J0360; J0696; J2060; J2405; J3480; J3490; J7050; J7120; J7620

== ENCOUNTER 2018-07-03 17:45 | Emergency (ER) | payer MEDICARE, OTHER ==
--- NOTE | 2018-07-03 19:12 | RAD ---
ABDOMINAL SURVEY WITH UPRIGHT CHEST AND TWO VIEW ABDOMEN: 07/03/18 INDICATION: Abdominal pain. Constipation. Lung diaz appear clear of infiltrate. Interstitial markings are mildly prominent. Heart size within normal range. Prominent stool seen throughout the colon. Small bowel gas pattern is unremarkable. Post cholecystect maycol clips. Faint linear calcifications in the left abdomen are probably vascular. IMPRESSION: Prominent stool throughout the colon consistent with history of constipation. POS: [facility]
[2018-07-03 19:52] LABS: #Eosinphils 0.2 thou/uL (0.0-0.7); #Lymphocytes 1.2 thou/uL (1.20-3.40); #Monocytes 0.7 thou/uL (0.11-0.59); #Neutrophils 6.3 thou/uL (1.40-6.50); %Basophils 0.1 % (0.0-1.0); %Eosinophils 2.1 % (0.0-10.0); %Lymphocytes 14.1 % (21.0-51.0); %Neutrophils 75.8 % (42.0-75.0); Hemoglobin 17.6 g/dL (14.0-18.0); Mean Corpuscular HGB CONC 33.8 g/dL (32.0-36.0); Mean Corpuscular Hemoglobin 29.1 pg (27.0-31.0); Mean Platelet Volume 7.1 fL (7.4-10.4); Platelet Count 285 thou/uL (130-400); RBC Distribution Width 15.5 % (11.5-14.5); Red Blood Cell (RBC) Count 6.05 mill/uL (4.70-6.10); White Blood Cell (WBC) Count 8.3 thou/uL (4.8-10.8)
[2018-07-03 20:07] LABS: ALT (SGPT) 31 U/L (8-55); AST (SGOT) 16 U/L (5-34); Albumin 4.1 g/dL (3.4-4.8); Alkaline Phosphatase 122 U/L (40-150); Anion Gap 12 mmol/L (10-20); BUN (Urea Nitrogen) 17 mg/dL (8.4-25.7); Bilirubin, Total 0.5 mg/dL (0.2-1.2); Calc. Creatinine Clearance 0 mL/min (70-130); Calcium 10.1 mg/dL (7.8-10.44); Carbon Dioxide 25 mmol/L (23-31); Chloride 103 mmol/L (98-107); Estimated GFR-MDRD 54; Globulin 3.3 g/dL (2.4-3.5); Glucose 113 mg/dL (80-115); Potassium 3.3 mmol/L (3.5-5.1); Protein, Total 7.4 g/dL (5.8-8.1); Sodium 137 mmol/L (136-145)
[2018-07-03] MEDS ORDERED: Acetaminophen 500 MG TAB ONE (20:51)
[2018-07-03] MEDS ORDERED: hydrALAZINE 25 MG TAB ONE (20:52)
--- NOTE | 2018-07-03 21:20 | CT ---
CT HEAD WITHOUT CONTRAST: 07/03/18 Multiple axial tomograms were obtained through the head without IV enhancement. INDICATIONS: Headache. COMPARISON: Comparison made to head CT of 06/07/18 and 06/06/18. The 06/06/18 exam showed a hyperdense area in the right parietal lobe suggesting small focal hemorrhag e. This was less conspicuous on 06/07/18. On today's exam, the previously noted hyperdensity is not apparent. There continues to be rather prom inent chronic ischemic white matter change. No evidence of acute mass, infarct, or hemorrhage. IMPRESSION: No acute process or significant interval change. POS: [facility]
== END 2018-07-03 22:38 | disposition home or self-care (01) ==
LOC: ERS 17:45
DX: K59.00 Constipation, unspecified (principal); I10 Essential (primary) hypertension; F17.210 Nicotine dependence, cigarettes, uncomplicated; Z79.899 Other long term (current) drug therapy
CPT/HCPCS: 36415; 70450; 74022; 80053; 84484; 85025; 93005

== ENCOUNTER 2018-08-05 16:06 | Observation (INO) | payer MEDICARE, OTHER ==
--- NOTE | 2018-08-05 18:01 | RAD ---
FExam: Portable chest Provided clinical history: Chest pain FINDINGS: Comparison 06/06/2018. Vascular calcification involves the aortic arch. Cardiac and mediastinal silhou ette is within normal limits. No focal consolidation, pleural fluid or pneumothorax apparent. IMPRESSION: No evidence for acute cardiopulmonary process.
[2018-08-05] MEDS ORDERED: hydrALAZINE 20 MG/ML VIAL ONE ×2 (18:07→18:34)
[2018-08-05 18:19] LABS: #Eosinphils 0.2 thou/uL (0.0-0.7); #Lymphocytes 1.4 thou/uL (1.20-3.40); #Monocytes 0.7 thou/uL (0.11-0.59); #Neutrophils 7.2 thou/uL (1.40-6.50); %Basophils 0.2 % (0.0-1.0); %Eosinophils 2.6 % (0.0-10.0); %Lymphocytes 14.4 % (21.0-51.0); %Monocytes 6.9 % (0.0-10.0); Hemoglobin 17.7 g/dL (14.0-18.0); Mean Corpuscular HGB CONC 33.5 g/dL (32.0-36.0); Mean Corpuscular Hemoglobin 28.4 pg (27.0-31.0); Mean Corpuscular Volume 84.7 fL (78.0-98.0); Mean Platelet Volume 6.8 fL (7.4-10.4); Platelet Count 326 thou/uL (130-400); RBC Distribution Width 14.7 % (11.5-14.5); Red Blood Cell (RBC) Count 6.23 mill/uL (4.70-6.10); White Blood Cell (WBC) Count 9.5 thou/uL (4.8-10.8)
--- NOTE | 2018-08-05 18:23 | CT ---
FExam: CT brain without contrast Provided clinical history: Hypertension FINDINGS: Comparison is made with the study dated 07/03/2018. The ventricular system is normal in size and morph ology. There is no evidence for intracranial hemorrhage or mass effect. Conspicuous chronic microvasc ular ischemic changes are redemonstrated, similar to the prior study. The extracranial soft tissues a nd osseous structures demonstrate no acute abnormality. IMPRESSION: No evidence for intracranial hemorrhage or mass effect. Stable brain CT with respect to 07/03/2018.
[2018-08-05 18:32] LABS: ALT (SGPT) 21 U/L (8-55); AST (SGOT) 15 U/L (5-34); Albumin 3.7 g/dL (3.4-4.8); Alkaline Phosphatase 115 U/L (40-150); Anion Gap 14 mmol/L (10-20); BUN (Urea Nitrogen) 21 mg/dL (8.4-25.7); Bilirubin, Total 0.5 mg/dL (0.2-1.2); CK (CPK) 35 U/L (30-200); Calc. Creatinine Clearance 0 mL/min (70-130); Calcium 9.5 mg/dL (7.8-10.44); Carbon Dioxide 28 mmol/L (23-31); Chloride 102 mmol/L (98-107); Estimated GFR-MDRD 48; Glucose 106 mg/dL (80-115); Lipase 21 U/L (8-78); Potassium 3.4 mmol/L (3.5-5.1); Protein, Total 6.7 g/dL (5.8-8.1); Sodium 141 mmol/L (136-145)
[2018-08-05 18:54] LABS: CKMB 1.6 ng/mL (0-6.6)
[2018-08-05] MEDS ORDERED: Nitroglycerin 0.4 MG TAB 1 EACH ONE (19:16)
[2018-08-05] MEDS ORDERED: Nitroglycerin 2% Ointment 1 INCH/1 GM Packet ONE (19:16)
[2018-08-05 19:17] LABS: Bilirubin Negative (Negative); Blood, Urine Negative (Negative); Clarity CLEAR (Clear); Glucose, Urine (Dipstick) Negative (Negative); Leukocyte Negative (Negative); Nitrite Negative (Negative); Protein, Urine (Dipstick) > or equal to 300 mg/dL (Neg-Trace); Specific Gravity, Urine 1.021 (1.002-1.036); pH, Urine 6.5 (5.0-9.0)
[2018-08-05 19:20] LABS: Bacteria/HPF None Seen HPF (None Seen); Hyaline Casts/LPF 4-6 HYALINE CAST LPF (0-3 Hyaline); Pathc Cast-AUWi Flag 1.08 (0-2.49); RBC/HPF 0-3 HPF (0-3); Squamous Epithelial 0-3 HPF (0-3); WBC/HPF 0-3 HPF (0-3)
[2018-08-05 19:26] LABS: Renal Epithelial None Seen HPF (0-3); Transitional Epithelial NONE SEEN HPF (0-3)
[2018-08-05] MEDS ORDERED: Aspirin Chewable 81 MG TAB ONE (23:00)
[2018-08-05] MEDS ORDERED: hydrALAZINE 20 MG/ML VIAL SLOW IVP PRN (23:32)
[2018-08-05] MEDS ORDERED: Acetaminophen 325 MG TAB PO PRN (23:33)
[2018-08-05] MEDS ORDERED: Ondansetron ODT 4 MG TAB SL PRN (23:33)
[2018-08-05] MEDS ORDERED: Ondansetron PF 4 MG/2 ML Vial IVP PRN (23:33)
[2018-08-06] MEDS ORDERED: Labetalol HCl 100 MG/20 ML VIAL SLOW IVP PRN (01:01)
[2018-08-06] MEDS ORDERED: hydrALAZINE 20 MG/ML VIAL SLOW IVP PRN (01:01)
[2018-08-06 01:07] VITALS: BMI 29.4
[2018-08-06 01:07] LABS: Troponin I 0.099 ng/mL (< 0.028)
[2018-08-06 03:31] LABS: Troponin I 0.151 ng/mL (< 0.028)
[2018-08-06] MEDS ORDERED: Benzonatate 100 MG CAP PO PRN (03:56)
[2018-08-06] MEDS ORDERED: Ondansetron ODT 4 MG TAB PO PRN (03:56)
[2018-08-06] MEDS ORDERED: Ondansetron PF 4 MG/2 ML Vial IVP PRN (03:56)
[2018-08-06] MEDS ORDERED: Acetaminophen 500 MG TAB PO PRN (03:56)
[2018-08-06] MEDS ORDERED: Nitroglycerin 0.4 MG TAB (25 Tab Bottle) SL PRN (03:56)
[2018-08-06] MEDS: cloNIDine 0.1 MG TAB PO PRN (04:15)
--- NOTE | 2018-08-06 04:42 | HP ---
PRIMARY CARE PROVIDER: Amparo Medina MD. CHIEF COMPLAINT: High blood pressure. HISTORY OF PRESENT ILLNESS: This is a 67-year-old male, who presents to [facility] Emergency Department complaining of persistent elevated blood pressure with initial measurement of 242/147. The patient with a history of hypertension and recent punctate intracranial hemorrhage in June 2018. The patient states he was following up with his primary care provider when the elevated blood pressure readings were noted. The patient states he has been out of his blood pressure medications for approximately one month and has not refilled them. The patient denied any unilateral weakness, visual disturbance, difficulty with speech, or recent fall. The patient admits to some increased shortness of breath and left-sided chest discomfort. The patient denied any recent trauma or injury, documented fever, or travel history. In the emergency room, the patient underwent general evaluation including CT of the brain showing no acute intracranial process. Screening metabolic survey showed a mildly elevated troponin I, ranging between 0.065 to 0.151. The patient received aspirin 324 mg with additional sublingual nitroglycerin and hydralazine x2 doses, totaling 20 mg IV push. PAST MEDICAL HISTORY: 1. Hypertension. 2. Tobacco abuse. 3. Polysubstance use. 4. Noncompliance. PAST SURGICAL HISTORY: 1. Status post metal placement on the scalp after accident in 1969. 2. Status post cholecystectomy. CURRENT MEDICATIONS: 1. Hydrochlorothiazide 25 mg p.o. daily. 2. Losartan 100 mg p.o. daily. 3. Norvasc 10 mg p.o. b.i.d. 4. Hydralazine 50 mg p.o. q.i.d. ALLERGIES: TO CODEINE. FAMILY HISTORY: Positive for hypertension. SOCIAL HISTORY: The patient resides in [place], [place]. Disabled. Smokes up to a pack of cigarettes daily. No alcohol. Positive marijuana use. REVIEW OF SYSTEMS: CONSTITUTIONAL: Negative for weight loss or gain, ability to conduct usual activities. SKIN: Negative for rash, itching. EYES: Negative for double vision, pain. ENT/MOUTH: Negative for nose bleeding, neck stiffness, pain, tenderness. CARDIOVASCULAR: Negative for palpitations, dyspnea on exertion, orthopnea. RESPIRATORY: Negative for shortness of breath, wheezing, cough, hemoptysis, fever or night sweats. GASTROINTESTINAL: Negative for poor appetite, abdominal pain, heartburn, nausea, vomiting, constipation, or diarrhea. GENITOURINARY: Negative for urgency, frequency, dysuria, nocturia. MUSCULOSKELETAL: Negative for pain, swelling. NEUROLOGIC/PSYCHIATRIC: Negative for anxiety, depression. ALLERGY/IMMUNOLOGIC: Negative for skin rash, bleeding tendency. Otherwise negative except as stated per HPI. PHYSICAL EXAMINATION: VITAL SIGNS: On admission, blood pressure 202/98, pulse 101, respiratory rate 22, temperature 98 degrees Fahrenheit, and O2 saturation 94% on room air. GENERAL APPEARANCE: This is a 67-year-old male, alert and oriented x3, pleasant, in mild respiratory distress. HEENT: Pupils are equal, round, and reactive to light and accommodation. Extraocular muscles are intact. Mild conjunctival injection bilaterally. Nares patent. OP is clear. Teeth in fair repair. NECK: Supple. No cervical adenopathy. No thyromegaly. No carotid bruits. No JVD appreciated. SPINE: Cervical spine with full active and passive range of motion. No meningeal signs noted. CHEST: Coarse breath sounds bilaterally with diminished air flow in the bases. CARDIOVASCULAR EXAM: S1 and S2 without noted murmur, rub, or gallop. ABDOMEN: Rounded, soft, nontender, and nondistended. Bowel sounds are positive in all 4 quadrants. There is no hepatosplenomegaly. No abdominal bruits. No rebound or guarding appreciated. EXTREMITIES: Warm and dry with fair turgor. No clubbing or cyanosis. Positive edema bilaterally without asymmetry. Pulses are palpable distally at the dorsalis pedis, posterior tibial, and popliteal arteries bilaterally. Capillary refill less than 2 seconds. NEUROLOGIC: Cranial nerves 2 through 12 are grossly intact. No focal or lateralizing signs appreciated. The patient is not observed ambulatory during this exam. PERTINENT LAB AND X-RAY FINDINGS: Potassium 3.4, creatinine 1.47, estimated GFR 48. LFTs within normal limits. Troponin I ranged between 0.065 to 0.151. BNP 161, previously noted 99.5 on 06/06/2018. Lipase 21. CBC showed a white blood cell count of 9.5, hemoglobin 18, hematocrit 53, platelet count 326 with 76% neutrophils. Portable chest x-ray dated 08/05/2018, showed no acute cardiopulmonary process. CT of the brain without contrast dated 08/05/2018, showed no acute intracranial process or mass effect. EKG dated 08/05/2018, by my interpretation shows a sinus mechanism with heart rates in the 80s. Normal R-wave progression noted in the precordial leads. Normal axis. Voltage criteria consistent with left ventricular hypertrophy. Isolated T-wave inversion in lead III. ASSESSMENT AND PLAN: 1. Hypertensive urgency. The patient will be observed on the telemetry unit. We will resume home antihypertensive regimen including hydrochlorothiazide, losartan, amlodipine, and hydralazine. Continue to titrate blood pressure regimen to optimize clinical response. Check 2D transthoracic echocardiogram in the a.m. 2. Noncompliance. We will continue to encourage compliance with medication regimen. Case management consult for evaluation and disposition planning. 3. Acute kidney injury on chronic kidney disease stage 3. Avoid nephrotoxic agents and limit contrast exposure. Repeat creatinine in the a.m. 4. Demand ischemia. No current evidence to suggest acute coronary syndrome. Suspect secondary to chronic kidney disease. Continue supportive management. 5. Tobacco abuse. We will offer smoking cessation resources prior to discharge. 6. Hypokalemia, mild. Supplement potassium chloride 40 mEq p.o. daily. Repeat potassium level in the a.m. 7. Prophylaxis. SCDs while in bed. PT evaluation for functional assessment. CODE STATUS: Full. Surrogate medical decision maker is Salvatore Boyce, patient's son. Job ID: [id number]
[2018-08-06] MEDS: Losartan 25 MG TAB PO SCH (09:38)
[2018-08-06] MEDS: hydrALAZINE 25 MG TAB PO SCH ×4 (09:38→20:37)
[2018-08-06] MEDS: Amlodipine 10 MG TAB PO SCH ×2 (09:38→20:37)
[2018-08-06] MEDS: Famotidine 20 MG TAB PO SCH ×2 (09:39→20:38)
[2018-08-06] MEDS: Hydrochlorothiazide 25 MG TAB PO SCH (09:39)
[2018-08-06 10:06] LABS: #Eosinphils 0.2 thou/uL (0.0-0.7); #Lymphocytes 1.8 thou/uL (1.20-3.40); #Monocytes 0.6 thou/uL (0.11-0.59); #Neutrophils 6.2 thou/uL (1.40-6.50); %Basophils 0.1 % (0.0-1.0); %Eosinophils 2.6 % (0.0-10.0); %Lymphocytes 20.5 % (21.0-51.0); %Monocytes 6.8 % (0.0-10.0); Hemoglobin 16.5 g/dL (14.0-18.0); Mean Corpuscular HGB CONC 33.8 g/dL (32.0-36.0); Mean Corpuscular Hemoglobin 28.7 pg (27.0-31.0); Mean Corpuscular Volume 84.8 fL (78.0-98.0); Mean Platelet Volume 6.5 fL (7.4-10.4); Platelet Count 337 thou/uL (130-400); RBC Distribution Width 14.7 % (11.5-14.5); Red Blood Cell (RBC) Count 5.77 mill/uL (4.70-6.10); White Blood Cell (WBC) Count 8.9 thou/uL (4.8-10.8)
[2018-08-06 10:27] LABS: Anion Gap 13 mmol/L (10-20); BUN (Urea Nitrogen) 18 mg/dL (8.4-25.7); Calc. Creatinine Clearance 70 mL/min (70-130); Calcium 9.9 mg/dL (7.8-10.44); Carbon Dioxide 25 mmol/L (23-31); Chloride 104 mmol/L (98-107); Estimated GFR-MDRD 53; Glucose 90 mg/dL (80-115); Potassium 3.3 mmol/L (3.5-5.1); Sodium 139 mmol/L (136-145)
--- NOTE | 2018-08-06 17:01 | PDOC.PN ---
- Subjective Encounter Start Date: 08/06/18 Encounter Start Time: 17:00 Patient lying in bed, he was complaining of headache this morning when BP was elevated, however this has been improving. He denies chest pain, shortness of breath or abdominal pain. Cardiac enzymes elevated secondary to acute on chronic kidney disease and/or elevated blood pressures and demand ischemia. - Objective Resuscitation Status - Order Detail: 08/06/18 03:50 Resuscitation Status Routine Resuscitation Status: FULL: Full Resuscitation MAR Reviewed: Yes Vital Signs & Weight: Vital Signs (12 hours) Temp Pulse Resp BP Pulse Ox 08/06/18 15:38 97.4 F L 71 20 139/70 92 L 08/06/18 12:50 76 08/06/18 11:45 97.9 F 76 20 127/77 92 L 08/06/18 09:38 74 08/06/18 07:35 98.4 F 74 20 181/87 H 92 L 08/06/18 05:38 98.6 F 72 20 190/90 H 91 L Weight Weight 205 lb 4.8 oz I&O: 08/05/18 08/06/18 08/07/18 06:59 06:59 06:59 Intake Total 205 Output Total 300 Balance -95 Result Diagrams: 08/06/18 09:57 08/06/18 09:57 Radiology Reviewed by me: Yes Phys Exam - Physical Examination Constitutional: NAD HEENT: PERRLA, moist MMs, oral pharynx no lesions Neck: no nodes, supple Respiratory: no wheezing, clear to auscultation bilateral Cardiovascular: RRR, no significant murmur Gastrointestinal: soft, positive bowel sounds Musculoskeletal: no edema, pulses present Neurological: non-focal, moves all 4 limbs Psychiatric: normal affect, A&O x 3 Skin: cap refill <2 seconds Dx/Plan (1) Myocardial infarction type 2 Code(s): I21.A1 - MYOCARDIAL INFARCTION TYPE 2 Status: Acute (2) Elevated troponin Code(s): R74.8 - ABNORMAL LEVELS OF OTHER SERUM ENZYMES Status: Acute (3) Hypertensive urgency Code(s): I16.0 - HYPERTENSIVE URGENCY Status: Acute Comment: Improved (4) Acute on chronic kidney failure Code(s): N17.9 - ACUTE KIDNEY FAILURE, UNSPECIFIED; N18.9 - CHRONIC KIDNEY DISEASE, UNSPECIFIED Status: Acute - Plan cont current plan of care * Encouraged compliance with home medications, patient verbalized his understanding * BPs improved continuing on home regimen of antihypertensives. * MASSIEL improved * Await echo * Patient with elevated troponin, [place] type 2 likely secondary to hypertension causing demand ischemia and/or acute of chronic kidney disease, he is without ekg changes and no cardiac symptoms at this time * Patient will likely be discharged in the next 24 hours
[2018-08-07] MEDS: cloNIDine 0.1 MG TAB PO PRN (04:20)
[2018-08-07 06:38] LABS: Hemoglobin 15.8 g/dL (14.0-18.0); Mean Corpuscular HGB CONC 32.8 g/dL (32.0-36.0); Mean Corpuscular Volume 85.3 fL (78.0-98.0); Mean Platelet Volume 6.6 fL (7.4-10.4); Platelet Count 321 thou/uL (130-400); RBC Distribution Width 14.8 % (11.5-14.5); Red Blood Cell (RBC) Count 5.66 mill/uL (4.70-6.10); White Blood Cell (WBC) Count 7.2 thou/uL (4.8-10.8)
[2018-08-07 06:49] LABS: Eosinophils 6 % (0-10); Lymphocytes 11 % (21-51); MDiff Complete? YES; Monocytes 4 % (0-10); Neutrophil 79 % (42-75)
[2018-08-07 06:53] LABS: Anion Gap 11 mmol/L (10-20); BUN (Urea Nitrogen) 16 mg/dL (8.4-25.7); Calc. Creatinine Clearance 65 mL/min (70-130); Calcium 9.4 mg/dL (7.8-10.44); Carbon Dioxide 31 mmol/L (23-31); Chloride 101 mmol/L (98-107); Estimated GFR-MDRD 49; Glucose 90 mg/dL (80-115); Potassium 3.4 mmol/L (3.5-5.1); Sodium 140 mmol/L (136-145)
[2018-08-07 07:46] VITALS: TEMP 98.5
[2018-08-07] MEDS: Amlodipine 10 MG TAB PO SCH (08:51)
[2018-08-07] MEDS: Losartan 25 MG TAB PO SCH (08:52)
[2018-08-07] MEDS: Famotidine 20 MG TAB PO SCH (08:52)
[2018-08-07] MEDS: hydrALAZINE 25 MG TAB PO SCH ×2 (08:52→12:18)
[2018-08-07] MEDS: Hydrochlorothiazide 25 MG TAB PO SCH (08:52)
[2018-08-07 12:04] VITALS: BP 173/83
[2018-08-07] MEDS ORDERED: cloNIDine 0.1 MG TAB PO SCH (21:00)
== END 2018-08-07 15:50 | disposition home or self-care (01) ==
LOC: ERS 16:06 → 2SW 22:00
PROVIDERS: ADMIT Family Medicine; ATTEND Family Medicine
DX: I16.0 Hypertensive urgency (principal); I12.9 Hypertensive chronic kidney disease with stage 1 through stage 4 chronic kidney disease, or unspecified chronic kidney disease; N18.3 Chronic kidney disease, stage 3 (moderate); N17.9 Acute kidney failure, unspecified; E87.6 Hypokalemia; F17.210 Nicotine dependence, cigarettes, uncomplicated; I25.2 Old myocardial infarction; R74.8 Abnormal levels of other serum enzymes; Z79.899 Other long term (current) drug therapy; Z91.14 Patient's other noncompliance with medication regimen; Z88.5 Allergy status to narcotic agent
CPT/HCPCS: 70450; 71045; 80048 ×2; 80053; 82550; 82553; 83690; 83880; 84484 ×3; 85007; 85025 ×2; 85027; 93005; 93306; 96374; 96375; 96376; 99285; G0378; 36415; 81003; 81015; J0360

== ENCOUNTER 2018-11-11 14:01 | Outpatient (CLI) | payer MEDICARE, OTHER ==
--- NOTE | 2018-11-11 14:43 | RAD ---
2 VIEWS CHEST: Date: 11/11/18 COMPARISON: 08/05/18. HISTORY: Dyspnea. FINDINGS: Two views of the chest show normal sized cardiomediastinal silhouette. There is no evidence of consol idation, mass, or pleural effusion. The bones are unremarkable. IMPRESSION: No evidence of acute cardiopulmonary disease. POS: [facility]
== END 2018-11-11 14:02 | disposition home or self-care (01) ==
LOC: RAD 14:01
PROVIDERS: ATTEND Internal Medicine
DX: R06.00 Dyspnea, unspecified (principal)
CPT/HCPCS: 71046

== ENCOUNTER 2020-10-13 15:30 | Inpatient (IN) | payer MEDICARE, OTHER ==
[2020-10-13 16:08] LABS: Hemoglobin 17.8 g/dL (14.0-18.0); Mean Corpuscular HGB CONC 32.2 g/dL (32.0-36.0); Mean Corpuscular Hemoglobin 26.1 pg (27.0-31.0); Mean Platelet Volume 7.7 fL (7.4-10.4); Platelet Count 212 thou/uL (130-400); RBC Distribution Width 16.5 % (11.5-14.5); Red Blood Cell (RBC) Count 6.81 mill/uL (4.70-6.10); White Blood Cell (WBC) Count 9.3 thou/uL (4.8-10.8)
[2020-10-13] MEDS ORDERED: Acetaminophen 500 MG TAB ONE (16:26)
[2020-10-13] MEDS ORDERED: cefTRIAXone\\ROCEPHIN 1 GM VIAL ONE (16:26)
[2020-10-13 16:31] LABS: ALT (SGPT) 64 U/L (8-55); AST (SGOT) 129 U/L (5-34); Albumin 3.7 g/dL (3.4-4.8); Alkaline Phosphatase 107 U/L (40-110); Anion Gap 18 mmol/L (10-20); BUN (Urea Nitrogen) 40 mg/dL (8.4-25.7); Bilirubin, Total 1.1 mg/dL (0.2-1.2); Calc. Creatinine Clearance 0 mL/min (70-130); Calcium 9.8 mg/dL (7.8-10.44); Carbon Dioxide 22 mmol/L (23-31); Chloride 96 mmol/L (98-107); Globulin 3.9 g/dL (2.4-3.5); Glucose 109 mg/dL (80-115); Potassium 3.9 mmol/L (3.5-5.1); Protein, Total 7.6 g/dL (5.8-8.1); Sodium 132 mmol/L (136-145)
[2020-10-13 16:40] LABS: Anisocytosis SLIGHT = 6-15 cells (100X) (0-5/hpf); Band 24 % (5-11); Lymphocytes 4 % (21-51); MDiff Complete? YES; Neutrophil 71 % (42-75); Platelet Morphology Comment Appears Adequate; Reactive Lymphocytes 1 % (0-10)
[2020-10-13 16:44] LABS: Bilirubin Negative (Negative); Blood, Urine Large (Negative); Glucose, Urine (Dipstick) Negative (Negative); Ketone, Urine Negative (Negative); Leukocyte Large (Negative); Nitrite Negative (Negative); Protein, Urine (Dipstick) 100 mg/dL (Neg-Trace); Specific Gravity, Urine 1.015 (1.005-1.030)
[2020-10-13 16:47] LABS: Clarity Clear (Clear)
[2020-10-13 16:54] LABS: CKMB 11.2 ng/mL (0-6.6)
[2020-10-13 17:48] LABS: Bacteria/HPF 4+ HPF (None Seen); WBC/HPF Greater Than 50 HPF (0-3)
[2020-10-13 17:55] LABS: SARS-CoV-2 NAA Rapid Test Not Detected (NotDetected)
[2020-10-13] MEDS ORDERED: Aspirin 325 MG TAB ONE (18:03)
[2020-10-13] MEDS ORDERED: Vancomycin 1 GM/200 ML BAG ONE (18:03)
[2020-10-13] MEDS ORDERED: Ondansetron PF 4 MG/2 ML Vial IVP PRN (18:04)
[2020-10-13] MEDS ORDERED: Ondansetron ODT 4 MG TAB PO PRN (18:04)
[2020-10-13] MEDS ORDERED: Sodium Chloride 0.9% 1,000 ML IV SCH (18:15)
[2020-10-13] MEDS ORDERED: Cefepime 2 GM in Sodium Chloride 0.9% 100 ML IVPB SCH (18:45)
[2020-10-13 19:06] LABS: Lactic Acid 1.6 mmol/L (0.5-2.2)
[2020-10-13 19:12] LABS: Troponin I 0.152 ng/mL (< 0.028)
[2020-10-13 22:44] LABS: Troponin I 0.168 ng/mL (< 0.028)
[2020-10-13] MEDS: Acetaminophen 325 MG TAB PO PRN (23:09)
[2020-10-13] MEDS: Heparin 5,000 UNITS/ML VIAL SC SCH (23:10)
[2020-10-13] MEDS: Sodium Chloride 0.9% 1,000 ML IV SCH (23:11)
[2020-10-14 04:20] LABS: Mean Corpuscular HGB CONC 33.2 g/dL (32.0-36.0); Mean Corpuscular Hemoglobin 27.3 pg (27.0-31.0); Mean Corpuscular Volume 82.2 fL (78.0-98.0); Mean Platelet Volume 8.1 fL (7.4-10.4); Platelet Count 156 thou/uL (130-400); RBC Distribution Width 16.1 % (11.5-14.5); Red Blood Cell (RBC) Count 5.85 mill/uL (4.70-6.10); White Blood Cell (WBC) Count 11.6 thou/uL (4.8-10.8)
[2020-10-14 04:24] LABS: ALT (SGPT) 55 U/L (8-55); AST (SGOT) 110 U/L (5-34); Albumin 2.9 g/dL (3.4-4.8); Alkaline Phosphatase 87 U/L (40-110); Anion Gap 14 mmol/L (10-20); BUN (Urea Nitrogen) 37 mg/dL (8.4-25.7); Bilirubin, Total 0.9 mg/dL (0.2-1.2); Calc. Creatinine Clearance 32 mL/min (70-130); Calcium 8.7 mg/dL (7.8-10.44); Carbon Dioxide 20 mmol/L (23-31); Chloride 104 mmol/L (98-107); Globulin 3.2 g/dL (2.4-3.5); Glucose 96 mg/dL (80-115); Potassium 3.5 mmol/L (3.5-5.1); Protein, Total 6.1 g/dL (5.8-8.1); Sodium 134 mmol/L (136-145)
[2020-10-14 04:51] LABS: Band 35 % (5-11); Lymphocytes 4 % (21-51); MDiff Complete? YES; Monocytes 2 % (0-10); Neutrophil 59 % (42-75)
[2020-10-14] MEDS: Acetaminophen 325 MG TAB PO PRN ×2 (05:39→20:42)
[2020-10-14] MEDS: Sodium Chloride 0.9% 1,000 ML IV SCH ×2 (09:31→22:00)
[2020-10-14] MEDS: Heparin 5,000 UNITS/ML VIAL SC SCH ×3 (09:31→20:42)
[2020-10-14 15:49] LABS: Vancomycin, Random 5.7 ug/mL (See Comment)
[2020-10-14] MEDS: Cefepime 1 GM in Sodium Chloride 0.9% 100 ML IVPB SCH (16:55)
[2020-10-14] MEDS ORDERED: Vancomycin HCl 1 GM in Premix Bag 1 BAG IVPB SCH (18:00)
[2020-10-14] MEDS ORDERED: Vancomycin 1 GM in Premix Bag 1 BAG IVPB SCH (21:00)
[2020-10-15] MEDS: Sodium Chloride 0.9% 1,000 ML IV SCH ×2 (04:00→13:55)
[2020-10-15] MEDS: Heparin 5,000 UNITS/ML VIAL SC SCH (08:23)
[2020-10-15 08:25] LABS: #Lymphocytes 0.4 thou/uL (1.20-3.40); #Monocytes 0.3 thou/uL (0.11-0.59); #Neutrophils 5.3 thou/uL (1.40-6.50); %Eosinophils 0.4 % (0.0-10.0); %Lymphocytes 6.6 % (21.0-51.0); %Monocytes 4.2 % (0.0-10.0); %Neutrophils 88.9 % (42.0-75.0); Hemoglobin 16.7 g/dL (14.0-18.0); Mean Corpuscular HGB CONC 32.8 g/dL (32.0-36.0); Mean Corpuscular Hemoglobin 26.9 pg (27.0-31.0); Mean Platelet Volume 8.2 fL (7.4-10.4); Platelet Count 141 thou/uL (130-400); RBC Distribution Width 16.3 % (11.5-14.5); Red Blood Cell (RBC) Count 6.21 mill/uL (4.70-6.10); White Blood Cell (WBC) Count 5.9 thou/uL (4.8-10.8)
[2020-10-15 08:53] LABS: Anion Gap 15 mmol/L (10-20); BUN (Urea Nitrogen) 35 mg/dL (8.4-25.7); Calc. Creatinine Clearance 42 mL/min (70-130); Calcium 8.9 mg/dL (7.8-10.44); Carbon Dioxide 20 mmol/L (23-31); Chloride 103 mmol/L (98-107); Glucose 99 mg/dL (80-115); Potassium 3.7 mmol/L (3.5-5.1); Sodium 134 mmol/L (136-145)
[2020-10-15] MEDS: Acetaminophen 325 MG TAB PO PRN (13:56)
[2020-10-15] MEDS: Enoxaparin Sodium 30 MG/0.3 ML SYRINGE SC SCH (13:56)
[2020-10-15] MEDS: Cefepime 1 GM in Sodium Chloride 0.9% 100 ML IVPB SCH (18:35)
[2020-10-15 20:56] LABS: Vancomycin, Random 11.8 ug/mL (See Comment)
[2020-10-16 06:32] LABS: #Lymphocytes 0.5 thou/uL (1.20-3.40); #Monocytes 0.3 thou/uL (0.11-0.59); #Neutrophils 4.2 thou/uL (1.40-6.50); %Basophils 0.5 % (0.0-1.0); %Eosinophils 0.4 % (0.0-10.0); %Lymphocytes 10.4 % (21.0-51.0); %Monocytes 5.8 % (0.0-10.0); %Neutrophils 82.8 % (42.0-75.0); Hemoglobin 16.1 g/dL (14.0-18.0); Mean Corpuscular HGB CONC 31.1 g/dL (32.0-36.0); Mean Corpuscular Hemoglobin 25.2 pg (27.0-31.0); Mean Corpuscular Volume 81.1 fL (78.0-98.0); Mean Platelet Volume 8.5 fL (7.4-10.4); Platelet Count 150 thou/uL (130-400); RBC Distribution Width 16.7 % (11.5-14.5); Red Blood Cell (RBC) Count 6.38 mill/uL (4.70-6.10)
[2020-10-16 06:55] LABS: Anion Gap 16 mmol/L (10-20); BUN (Urea Nitrogen) 38 mg/dL (8.4-25.7); CK (CPK) 585 U/L (30-200); Calc. Creatinine Clearance 36 mL/min (70-130); Carbon Dioxide 18 mmol/L (23-31); Chloride 104 mmol/L (98-107); Glucose 84 mg/dL (80-115); Potassium 3.8 mmol/L (3.5-5.1); Sodium 134 mmol/L (136-145)
[2020-10-16] MEDS: Sodium Chloride 0.9% 1,000 ML IV SCH (09:03)
[2020-10-16] MEDS: Enoxaparin Sodium 30 MG/0.3 ML SYRINGE SC SCH (09:03)
[2020-10-16] MEDS: Nicotine 21 MG PATCH TD SCH ×2 (14:35→14:50)
[2020-10-16] MEDS: Cefepime 1 GM in Sodium Chloride 0.9% 100 ML IVPB SCH (19:07)
[2020-10-17] MEDS: Sodium Chloride 0.9% 1,000 ML IV SCH ×2 (01:03→14:57)
[2020-10-17 05:23] LABS: #Eosinphils 0.1 thou/uL (0.0-0.7); #Lymphocytes 0.7 thou/uL (1.20-3.40); #Monocytes 0.5 thou/uL (0.11-0.59); #Neutrophils 4.2 thou/uL (1.40-6.50); %Basophils 0.3 % (0.0-1.0); %Eosinophils 2.4 % (0.0-10.0); %Lymphocytes 13.2 % (21.0-51.0); %Monocytes 8.9 % (0.0-10.0); %Neutrophils 75.2 % (42.0-75.0); Hemoglobin 15.6 g/dL (14.0-18.0); Mean Corpuscular HGB CONC 31.2 g/dL (32.0-36.0); Mean Corpuscular Hemoglobin 25.3 pg (27.0-31.0); Mean Corpuscular Volume 81.1 fL (78.0-98.0); Mean Platelet Volume 8.8 fL (7.4-10.4); Platelet Count 141 thou/uL (130-400); RBC Distribution Width 16.6 % (11.5-14.5); Red Blood Cell (RBC) Count 6.19 mill/uL (4.70-6.10); White Blood Cell (WBC) Count 5.6 thou/uL (4.8-10.8)
[2020-10-17 05:43] LABS: Anion Gap 14 mmol/L (10-20); BUN (Urea Nitrogen) 37 mg/dL (8.4-25.7); Calc. Creatinine Clearance 35 mL/min (70-130); Calcium 8.5 mg/dL (7.8-10.44); Carbon Dioxide 18 mmol/L (23-31); Chloride 106 mmol/L (98-107); Glucose 82 mg/dL (80-115); Potassium 3.6 mmol/L (3.5-5.1); Sodium 134 mmol/L (136-145)
[2020-10-17 07:19] VITALS: BMI 30.2
[2020-10-17] MEDS: Enoxaparin Sodium 30 MG/0.3 ML SYRINGE SC SCH (09:48)
[2020-10-17] MEDS: Sodium Bicarbonate Tab 325 MG TAB PO SCH ×2 (14:55→19:48)
[2020-10-17] MEDS: Nicotine 21 MG PATCH TD SCH (14:56)
[2020-10-17] MEDS: Cefepime 1 GM in Sodium Chloride 0.9% 100 ML IVPB SCH (18:27)
[2020-10-18] MEDS: Sodium Chloride 0.9% 1,000 ML IV SCH ×2 (02:42→09:22)
[2020-10-18 06:23] LABS: Anion Gap 12 mmol/L (10-20); BUN (Urea Nitrogen) 39 mg/dL (8.4-25.7); Calc. Creatinine Clearance 38 mL/min (70-130); Calcium 8.5 mg/dL (7.8-10.44); Carbon Dioxide 22 mmol/L (23-31); Chloride 105 mmol/L (98-107); Glucose 97 mg/dL (80-115); Potassium 3.3 mmol/L (3.5-5.1); Sodium 136 mmol/L (136-145)
[2020-10-18] MEDS: Tamsulosin HCl 0.4 MG CAP PO SCH (08:09)
[2020-10-18] MEDS: Finasteride 5 MG TAB PO SCH (08:09)
[2020-10-18] MEDS: Sodium Bicarbonate Tab 325 MG TAB PO SCH ×2 (08:09→20:55)
[2020-10-18] MEDS: Enoxaparin Sodium 30 MG/0.3 ML SYRINGE SC SCH (08:10)
[2020-10-18] MEDS: Nicotine 21 MG PATCH TD SCH (13:08)
[2020-10-18] MEDS: Cefepime 1 GM in Sodium Chloride 0.9% 100 ML IVPB SCH (17:37)
[2020-10-19] MEDS: Tamsulosin HCl 0.4 MG CAP PO SCH (07:52)
[2020-10-19] MEDS: Enoxaparin Sodium 30 MG/0.3 ML SYRINGE SC SCH (07:52)
[2020-10-19] MEDS: Sodium Bicarbonate Tab 325 MG TAB PO SCH (07:52)
[2020-10-19] MEDS: Finasteride 5 MG TAB PO SCH (07:52)
[2020-10-19 11:25] LABS: #Eosinphils 0.3 thou/uL (0.0-0.7); #Monocytes 0.3 thou/uL (0.11-0.59); #Neutrophils 3.5 thou/uL (1.40-6.50); %Basophils 0.1 % (0.0-1.0); %Eosinophils 5.9 % (0.0-10.0); %Lymphocytes 19.9 % (21.0-51.0); %Monocytes 6.1 % (0.0-10.0); Hemoglobin 15.4 g/dL (14.0-18.0); Mean Corpuscular HGB CONC 33.2 g/dL (32.0-36.0); Mean Corpuscular Hemoglobin 26.6 pg (27.0-31.0); Mean Corpuscular Volume 80.3 fL (78.0-98.0); Mean Platelet Volume 8.2 fL (7.4-10.4); Platelet Count 160 thou/uL (130-400); RBC Distribution Width 16.4 % (11.5-14.5); Red Blood Cell (RBC) Count 5.78 mill/uL (4.70-6.10); White Blood Cell (WBC) Count 5.2 thou/uL (4.8-10.8)
[2020-10-19] MEDS: Nicotine 21 MG PATCH TD SCH (11:48)
[2020-10-19 11:50] LABS: Anion Gap 11 mmol/L (10-20); BUN (Urea Nitrogen) 31 mg/dL (8.4-25.7); Calc. Creatinine Clearance 49 mL/min (70-130); Calcium 8.6 mg/dL (7.8-10.44); Carbon Dioxide 27 mmol/L (23-31); Chloride 100 mmol/L (98-107); Glucose 144 mg/dL (80-115); Potassium 3.3 mmol/L (3.5-5.1); Sodium 135 mmol/L (136-145)
[2020-10-20 06:30] LABS: #Eosinphils 0.3 thou/uL (0.0-0.7); #Lymphocytes 1.1 thou/uL (1.20-3.40); #Monocytes 0.6 thou/uL (0.11-0.59); #Neutrophils 3.9 thou/uL (1.40-6.50); %Basophils 0.6 % (0.0-1.0); %Eosinophils 5.1 % (0.0-10.0); %Lymphocytes 18.4 % (21.0-51.0); %Monocytes 9.6 % (0.0-10.0); %Neutrophils 66.3 % (42.0-75.0); Hemoglobin 14.7 g/dL (14.0-18.0); Mean Corpuscular HGB CONC 32.7 g/dL (32.0-36.0); Mean Corpuscular Hemoglobin 26.4 pg (27.0-31.0); Mean Corpuscular Volume 80.7 fL (78.0-98.0); Mean Platelet Volume 7.5 fL (7.4-10.4); Platelet Count 181 thou/uL (130-400); RBC Distribution Width 16.4 % (11.5-14.5); Red Blood Cell (RBC) Count 5.59 mill/uL (4.70-6.10); White Blood Cell (WBC) Count 5.9 thou/uL (4.8-10.8)
[2020-10-20 06:54] LABS: Albumin 2.8 g/dL (3.4-4.8); Anion Gap 13 mmol/L (10-20); BUN (Urea Nitrogen) 26 mg/dL (8.4-25.7); BUN/Creatinine Ratio 17.69; Calc. Creatinine Clearance 63 mL/min (70-130); Calcium 8.2 mg/dL (7.8-10.44); Carbon Dioxide 28 mmol/L (23-31); Chloride 98 mmol/L (98-107); Glucose 98 mg/dL (80-115); Phosphorus 2.7 mg/dL (2.3-4.7); Potassium 3.4 mmol/L (3.5-5.1); Sodium 136 mmol/L (136-145)
[2020-10-20] MEDS: Enoxaparin Sodium 30 MG/0.3 ML SYRINGE SC SCH (09:26)
[2020-10-20] MEDS: Tamsulosin HCl 0.4 MG CAP PO SCH (09:26)
[2020-10-20] MEDS: Finasteride 5 MG TAB PO SCH (09:26)
[2020-10-20] MEDS: Nicotine 21 MG PATCH TD SCH (11:25)
[2020-10-21 07:05] LABS: #Basophils 0.1 thou/uL (0.0-0.2); #Eosinphils 0.4 thou/uL (0.0-0.7); #Lymphocytes 1.1 thou/uL (1.20-3.40); #Monocytes 0.6 thou/uL (0.11-0.59); #Neutrophils 3.4 thou/uL (1.40-6.50); %Eosinophils 6.8 % (0.0-10.0); %Lymphocytes 19.7 % (21.0-51.0); %Monocytes 10.2 % (0.0-10.0); %Neutrophils 62.2 % (42.0-75.0); Hemoglobin 14.1 g/dL (14.0-18.0); Mean Corpuscular HGB CONC 32.8 g/dL (32.0-36.0); Mean Corpuscular Hemoglobin 26.9 pg (27.0-31.0); Mean Platelet Volume 7.3 fL (7.4-10.4); Platelet Count 206 thou/uL (130-400); RBC Distribution Width 16.4 % (11.5-14.5); Red Blood Cell (RBC) Count 5.26 mill/uL (4.70-6.10); White Blood Cell (WBC) Count 5.4 thou/uL (4.8-10.8)
[2020-10-21 07:27] LABS: Albumin 2.9 g/dL (3.4-4.8); Anion Gap 11 mmol/L (10-20); BUN (Urea Nitrogen) 20 mg/dL (8.4-25.7); Calc. Creatinine Clearance 70 mL/min (70-130); Calcium 8.5 mg/dL (7.8-10.44); Carbon Dioxide 30 mmol/L (23-31); Chloride 98 mmol/L (98-107); Glucose 107 mg/dL (80-115); Phosphorus 2.6 mg/dL (2.3-4.7); Potassium 3.2 mmol/L (3.5-5.1); Sodium 136 mmol/L (136-145)
[2020-10-21] MEDS: Tamsulosin HCl 0.4 MG CAP PO SCH (08:38)
[2020-10-21] MEDS: Enoxaparin Sodium 30 MG/0.3 ML SYRINGE SC SCH (08:38)
[2020-10-21] MEDS: Finasteride 5 MG TAB PO SCH (08:38)
[2020-10-21] MEDS ORDERED: Polyethylene Glycol 3350 17 GM Packet PO SCH (11:00)
[2020-10-21] MEDS: Nicotine 21 MG PATCH TD SCH (11:45)
[2020-10-21] MEDS ORDERED: Potassium Chloride 20 MEQ TAB PO SCH (14:45)
[2020-10-21 17:02] VITALS: BP 150/88; TEMP 98.4
[2020-10-22] MEDS ORDERED: Polyethylene Glycol 3350 17 GM Packet PO SCH (09:00)
== END 2020-10-21 18:00 | disposition home health service (06) | DRG 871 ==
LOC: ERS 15:30 → IMCU/EMU 19:27 → SURG A 10-16 17:07 → T4-B 10-19 09:53
PROVIDERS: ADMIT Internal Medicine; ATTEND Internal Medicine
PROC: 0T9B70Z Drainage of Bladder with Drainage Device, Via Natural or Artificial Opening (ICD-10-PCS; principal; 2020-10-18)
DX: A41.50 Gram-negative sepsis, unspecified (principal); G93.41 Metabolic encephalopathy; I21.A1 Myocardial infarction type 2; N39.0 Urinary tract infection, site not specified; N17.9 Acute kidney failure, unspecified; E87.2 Acidosis; M62.82 Rhabdomyolysis; E87.1 Hypo-osmolality and hyponatremia; R65.20 Severe sepsis without septic shock; N18.30 Chronic kidney disease, stage 3 unspecified; I12.9 Hypertensive chronic kidney disease with stage 1 through stage 4 chronic kidney disease, or unspecified chronic kidney disease; E88.09 Other disorders of plasma-protein metabolism, not elsewhere classified; F17.210 Nicotine dependence, cigarettes, uncomplicated; Z20.822 Contact with and (suspected) exposure to COVID-19; R33.9 Retention of urine, unspecified; E87.6 Hypokalemia; Z88.5 Allergy status to narcotic agent; Z90.49 Acquired absence of other specified parts of digestive tract; Z98.890 Other specified postprocedural states
CPT/HCPCS: 0240U; 36415; 36416; 70450; 70551; 71045; 76770; 80048; 80053; 80069; 80202; 81003; 81015; 82550; 82553; 83605; 83880; 84145; 84484; 85025; 87040; 87077; 87086; 87149; 87186; 93005; 94640; 94760; 96365; 96367; J0692; J0696; J1644; J1650; J1956; J3370; J3490; J7620

== ENCOUNTER 2020-10-24 18:00 | Inpatient (IN) | payer MEDICARE, OTHER ==
[2020-10-24 18:30] LABS: #Lymphocytes 0.8 thou/uL (1.20-3.40); #Monocytes 0.9 thou/uL (0.11-0.59); #Neutrophils 9.9 thou/uL (1.40-6.50); %Basophils 0.2 % (0.0-1.0); %Eosinophils 0.4 % (0.0-10.0); %Lymphocytes 6.7 % (21.0-51.0); %Monocytes 8.1 % (0.0-10.0); %Neutrophils 84.6 % (42.0-75.0); Hemoglobin 15.6 g/dL (14.0-18.0); Mean Corpuscular HGB CONC 33.7 g/dL (32.0-36.0); Mean Corpuscular Hemoglobin 27.4 pg (27.0-31.0); Mean Corpuscular Volume 81.3 fL (78.0-98.0); Mean Platelet Volume 6.8 fL (7.4-10.4); Platelet Count 238 thou/uL (130-400); RBC Distribution Width 16.9 % (11.5-14.5); Red Blood Cell (RBC) Count 5.68 mill/uL (4.70-6.10); White Blood Cell (WBC) Count 11.7 thou/uL (4.8-10.8)
[2020-10-24 18:32] LABS: Bilirubin Negative (Negative); Blood, Urine 1+ (Negative); Clarity Clear (Clear); Glucose, Urine (Dipstick) Normal (Negative); Ketone, Urine Negative (Negative); Leukocyte 250 Leu/uL (Negative); Nitrite Negative (Negative); Protein, Urine (Dipstick) 100 mg/dL (Neg-Trace); Specific Gravity, Urine 1.015 (1.002-1.036); Squamous Epithelial 0-3 HPF (0-3); WBC/HPF Greater than 50 HPF (0-3); pH, Urine 8.5 (5.0-9.0)
[2020-10-24 18:34] LABS: Bacteria/HPF Rare-Few HPF (None Seen)
[2020-10-24 18:41] LABS: INR-International Normal Ratio 1.2; Prothrombin Time 15.3 sec (12.0-14.7)
[2020-10-24 18:52] LABS: ALT (SGPT) 28 U/L (8-55); AST (SGOT) 24 U/L (5-34); Albumin 3.7 g/dL (3.4-4.8); Alkaline Phosphatase 79 U/L (40-110); Anion Gap 20 mmol/L (10-20); BUN (Urea Nitrogen) 17 mg/dL (8.4-25.7); Bilirubin, Total 1.1 mg/dL (0.2-1.2); Calc. Creatinine Clearance 0 mL/min (70-130); Calcium 9.8 mg/dL (7.8-10.44); Carbon Dioxide 21 mmol/L (23-31); Chloride 103 mmol/L (98-107); Globulin 3.4 g/dL (2.4-3.5); Glucose 119 mg/dL (80-115); Potassium 3.8 mmol/L (3.5-5.1); Protein, Total 7.1 g/dL (5.8-8.1); Sodium 140 mmol/L (136-145)
[2020-10-24 19:14] LABS: CKMB 1.9 ng/mL (0-6.6)
[2020-10-24] MEDS ORDERED: cefTRIAXone\\ROCEPHIN 1 GM VIAL ONE (19:27)
[2020-10-24] MEDS ORDERED: Azithromycin 500 MG VIAL ONE (21:09)
[2020-10-24] MEDS ORDERED: Aspirin 300 MG Suppository ONE (21:09)
[2020-10-24 21:50] LABS: Lactic Acid 1.7 mmol/L (0.5-2.2)
[2020-10-24 22:58] LABS: Troponin I 0.056 ng/mL (< 0.028)
[2020-10-24 23:38] VITALS: BMI 28.8
[2020-10-25] MEDS ORDERED: Sodium Chloride 0.9% 500 ML IV SCH (00:30)
[2020-10-25] MEDS ORDERED: Labetalol HCl 100 MG/20 ML VIAL SLOW IVP PRN (00:31)
[2020-10-25 01:37] LABS: Troponin I 0.058 ng/mL (< 0.028)
[2020-10-25] MEDS ORDERED: Sodium Chloride 0.9% 1,000 ML IV SCH (02:00)
[2020-10-25] MEDS: Sodium Chloride 0.9% 1,000 ML IV SCH ×2 (03:01→21:51)
[2020-10-25 05:31] LABS: #Eosinphils 0.1 thou/uL (0.0-0.7); #Lymphocytes 0.9 thou/uL (1.20-3.40); #Monocytes 0.8 thou/uL (0.11-0.59); #Neutrophils 5.8 thou/uL (1.40-6.50); %Basophils 0.4 % (0.0-1.0); %Eosinophils 1.6 % (0.0-10.0); %Lymphocytes 11.9 % (21.0-51.0); %Monocytes 10.1 % (0.0-10.0); Hemoglobin 13.7 g/dL (14.0-18.0); Mean Corpuscular HGB CONC 31.2 g/dL (32.0-36.0); Mean Corpuscular Volume 83.5 fL (78.0-98.0); Mean Platelet Volume 6.9 fL (7.4-10.4); Platelet Count 221 thou/uL (130-400); Red Blood Cell (RBC) Count 5.27 mill/uL (4.70-6.10); White Blood Cell (WBC) Count 7.6 thou/uL (4.8-10.8)
[2020-10-25 05:53] LABS: Anion Gap 13 mmol/L (10-20); BUN (Urea Nitrogen) 16 mg/dL (8.4-25.7); Calc. Creatinine Clearance 55 mL/min (70-130); Calcium 8.8 mg/dL (7.8-10.44); Carbon Dioxide 22 mmol/L (23-31); Chloride 109 mmol/L (98-107); Cholesterol 148 mg/dl (< 200 Desired); Glucose 86 mg/dL (80-115); HDL Cholesterol 21 mg/dL (>60 Neg Risk); LDL Cholesterol, Calculated 98 mg/dL; Potassium 3.2 mmol/L (3.5-5.1); Sodium 141 mmol/L (136-145); Triglycerides 147 mg/dL (Less than 150)
[2020-10-25] MEDS ORDERED: Enoxaparin Sodium 40 MG/0.4 ML SYRINGE SC SCH (09:00)
[2020-10-25] MEDS: Cefepime 2 GM in Sodium Chloride 0.9% 100 ML IVPB SCH ×2 (10:04→21:51)
[2020-10-25] MEDS: Enoxaparin Sodium 100 MG/ML SYRINGE SC SCH (10:05)
[2020-10-25 10:53] LABS: SARS-CoV-2 PCR by NAA Not Detected (NotDetected)
[2020-10-25] MEDS: traMADol HCl 50 MG TAB PO PRN (17:06)
[2020-10-25] MEDS: hydrALAZINE 20 MG/ML VIAL SLOW IVP PRN (17:07)
[2020-10-25] MEDS: Atorvastatin Calcium 40 MG TAB PO SCH (21:52)
[2020-10-26 05:03] LABS: #Basophils 0.1 thou/uL (0.0-0.2); #Eosinphils 0.2 thou/uL (0.0-0.7); #Lymphocytes 0.9 thou/uL (1.20-3.40); #Monocytes 0.7 thou/uL (0.11-0.59); #Neutrophils 5.8 thou/uL (1.40-6.50); %Basophils 1.1 % (0.0-1.0); %Monocytes 8.8 % (0.0-10.0); %Neutrophils 75.2 % (42.0-75.0); Hemoglobin 13.6 g/dL (14.0-18.0); Mean Corpuscular HGB CONC 32.7 g/dL (32.0-36.0); Mean Corpuscular Hemoglobin 27.2 pg (27.0-31.0); Mean Corpuscular Volume 83.2 fL (78.0-98.0); Mean Platelet Volume 6.8 fL (7.4-10.4); Platelet Count 193 thou/uL (130-400); Red Blood Cell (RBC) Count 4.99 mill/uL (4.70-6.10); White Blood Cell (WBC) Count 7.8 thou/uL (4.8-10.8)
[2020-10-26 05:24] LABS: Anion Gap 10 mmol/L (10-20); BUN (Urea Nitrogen) 15 mg/dL (8.4-25.7); Calc. Creatinine Clearance 61 mL/min (70-130); Calcium 8.7 mg/dL (7.8-10.44); Carbon Dioxide 24 mmol/L (23-31); Cardiac Risk 7.3 (Less than 4.5); Chloride 106 mmol/L (98-107); Cholesterol 154 mg/dl (< 200 Desired); Glucose 95 mg/dL (80-115); HDL Cholesterol 21 mg/dL (>60 Neg Risk); LDL Cholesterol, Calculated 99 mg/dL; Potassium 3.4 mmol/L (3.5-5.1); Sodium 137 mmol/L (136-145); Triglycerides 169 mg/dL (Less than 150)
[2020-10-26] MEDS: Cefepime 2 GM in Sodium Chloride 0.9% 100 ML IVPB SCH ×2 (09:35→21:12)
[2020-10-26] MEDS: Aspirin 81 mg Enteric Coated Tablet PO SCH (09:35)
[2020-10-26] MEDS: Enoxaparin Sodium 100 MG/ML SYRINGE SC SCH ×2 (09:36→21:12)
[2020-10-26] MEDS: Sodium Chloride 0.9% 1,000 ML IV SCH (09:36)
[2020-10-26] MEDS: hydrALAZINE 20 MG/ML VIAL SLOW IVP PRN (16:40)
[2020-10-26] MEDS: Atorvastatin Calcium 40 MG TAB PO SCH (21:13)
[2020-10-27] MEDS: Sodium Chloride 0.9% 1,000 ML IV SCH ×2 (00:03→12:09)
[2020-10-27] MEDS: hydrALAZINE 20 MG/ML VIAL SLOW IVP PRN ×2 (03:43→21:53)
[2020-10-27 05:16] LABS: #Eosinphils 0.2 thou/uL (0.0-0.7); #Lymphocytes 0.9 thou/uL (1.20-3.40); #Monocytes 0.6 thou/uL (0.11-0.59); #Neutrophils 4.7 thou/uL (1.40-6.50); %Basophils 0.5 % (0.0-1.0); %Lymphocytes 13.9 % (21.0-51.0); %Monocytes 8.9 % (0.0-10.0); %Neutrophils 73.7 % (42.0-75.0); Hemoglobin 13.3 g/dL (14.0-18.0); Mean Corpuscular HGB CONC 32.5 g/dL (32.0-36.0); Mean Corpuscular Volume 82.9 fL (78.0-98.0); Mean Platelet Volume 7.3 fL (7.4-10.4); Platelet Count 204 thou/uL (130-400); RBC Distribution Width 16.9 % (11.5-14.5); Red Blood Cell (RBC) Count 4.91 mill/uL (4.70-6.10); White Blood Cell (WBC) Count 6.4 thou/uL (4.8-10.8)
[2020-10-27 05:55] LABS: Anion Gap 9 mmol/L (10-20); BUN (Urea Nitrogen) 13 mg/dL (8.4-25.7); Calc. Creatinine Clearance 73 mL/min (70-130); Calcium 8.6 mg/dL (7.8-10.44); Carbon Dioxide 25 mmol/L (23-31); Chloride 107 mmol/L (98-107); Glucose 83 mg/dL (80-115); Potassium 3.5 mmol/L (3.5-5.1); Sodium 137 mmol/L (136-145)
[2020-10-27] MEDS: Tamsulosin HCl 0.4 MG CAP PO SCH (08:09)
[2020-10-27] MEDS: Aspirin 81 mg Enteric Coated Tablet PO SCH (08:10)
[2020-10-27] MEDS: Amlodipine 5 MG TAB PO SCH (08:10)
[2020-10-27] MEDS: Enoxaparin Sodium 100 MG/ML SYRINGE SC SCH ×2 (08:17→21:54)
[2020-10-27] MEDS: Cefepime 2 GM in Sodium Chloride 0.9% 100 ML IVPB SCH ×2 (10:02→21:53)
[2020-10-27] MEDS: Atorvastatin Calcium 40 MG TAB PO SCH (21:54)
[2020-10-28] MEDS: Sodium Chloride 0.9% 1,000 ML IV SCH ×3 (03:53→20:40)
[2020-10-28] MEDS: hydrALAZINE 20 MG/ML VIAL SLOW IVP PRN ×3 (05:27→17:20)
[2020-10-28] MEDS: Tamsulosin HCl 0.4 MG CAP PO SCH (09:24)
[2020-10-28] MEDS: Aspirin 81 mg Enteric Coated Tablet PO SCH (09:24)
[2020-10-28] MEDS: Amlodipine 5 MG TAB PO SCH (09:24)
[2020-10-28] MEDS: Cefepime 2 GM in Sodium Chloride 0.9% 100 ML IVPB SCH ×2 (09:25→20:39)
[2020-10-28] MEDS: Enoxaparin Sodium 100 MG/ML SYRINGE SC SCH (09:25)
[2020-10-28] MEDS: cloNIDine 0.1 MG TAB PO SCH (20:38)
[2020-10-28] MEDS: Apixaban 5 MG TAB PO SCH (20:39)
[2020-10-28] MEDS: Atorvastatin Calcium 40 MG TAB PO SCH (20:39)
[2020-10-28] MEDS: hydrALAZINE 25 MG TAB PO SCH (20:39)
[2020-10-29] MEDS: Aspirin 81 mg Enteric Coated Tablet PO SCH (09:57)
[2020-10-29] MEDS: Amlodipine 5 MG TAB PO SCH (09:57)
[2020-10-29] MEDS: cloNIDine 0.1 MG TAB PO SCH ×2 (09:57→21:26)
[2020-10-29] MEDS: Apixaban 5 MG TAB PO SCH ×2 (09:58→21:26)
[2020-10-29] MEDS: Cefepime 2 GM in Sodium Chloride 0.9% 100 ML IVPB SCH ×2 (09:58→21:26)
[2020-10-29] MEDS: Tamsulosin HCl 0.4 MG CAP PO SCH (09:58)
[2020-10-29] MEDS: hydrALAZINE 25 MG TAB PO SCH ×4 (09:58→21:25)
[2020-10-29] MEDS: traMADol HCl 50 MG TAB PO PRN ×3 (09:59→21:25)
[2020-10-29] MEDS: Nicotine 21 MG PATCH TD SCH (12:40)
[2020-10-29] MEDS: Sodium Chloride 0.9% 1,000 ML IV SCH (12:42)
[2020-10-29] MEDS: Atorvastatin Calcium 40 MG TAB PO SCH (21:26)
[2020-10-30] MEDS: Sodium Chloride 0.9% 1,000 ML IV SCH ×2 (06:08→20:34)
[2020-10-30] MEDS: hydrALAZINE 25 MG TAB PO SCH ×4 (09:37→20:29)
[2020-10-30] MEDS: Amlodipine 5 MG TAB PO SCH (09:37)
[2020-10-30] MEDS: cloNIDine 0.1 MG TAB PO SCH ×2 (09:37→20:29)
[2020-10-30] MEDS: Tamsulosin HCl 0.4 MG CAP PO SCH (09:38)
[2020-10-30] MEDS: Cefepime 2 GM in Sodium Chloride 0.9% 100 ML IVPB SCH ×2 (09:38→22:16)
[2020-10-30] MEDS: Aspirin 81 mg Enteric Coated Tablet PO SCH (09:38)
[2020-10-30] MEDS: Apixaban 5 MG TAB PO SCH ×2 (09:40→20:29)
[2020-10-30] MEDS: traMADol HCl 50 MG TAB PO PRN (12:30)
[2020-10-30] MEDS: Nicotine 21 MG PATCH TD SCH (12:31)
[2020-10-30] MEDS: Atorvastatin Calcium 40 MG TAB PO SCH (20:29)
[2020-10-31] MEDS: Aspirin 81 mg Enteric Coated Tablet PO SCH (08:56)
[2020-10-31] MEDS: cloNIDine 0.1 MG TAB PO SCH ×3 (08:56→20:25)
[2020-10-31] MEDS: Amlodipine 5 MG TAB PO SCH (08:57)
[2020-10-31] MEDS: hydrALAZINE 25 MG TAB PO SCH ×3 (08:57→20:25)
[2020-10-31] MEDS: traMADol HCl 50 MG TAB PO PRN (08:57)
[2020-10-31] MEDS: Cefepime 2 GM in Sodium Chloride 0.9% 100 ML IVPB SCH (08:58)
[2020-10-31] MEDS: Tamsulosin HCl 0.4 MG CAP PO SCH (08:58)
[2020-10-31] MEDS: Apixaban 5 MG TAB PO SCH ×2 (08:58→20:25)
[2020-10-31] MEDS: Nicotine 21 MG PATCH TD SCH (12:02)
[2020-10-31] MEDS: Atorvastatin Calcium 40 MG TAB PO SCH (20:25)
[2020-10-31] MEDS: Doxycycline 100 MG CAP PO SCH (20:25)
[2020-11-01] MEDS: cloNIDine 0.1 MG TAB PO SCH ×2 (05:10→14:06)
[2020-11-01 09:32] LABS: #Eosinphils 0.2 thou/uL (0.0-0.7); #Lymphocytes 0.7 thou/uL (1.20-3.40); #Monocytes 0.4 thou/uL (0.11-0.59); #Neutrophils 2.9 thou/uL (1.40-6.50); %Eosinophils 3.8 % (0.0-10.0); %Lymphocytes 16.7 % (21.0-51.0); %Monocytes 9.8 % (0.0-10.0); %Neutrophils 68.7 % (42.0-75.0); Hemoglobin 13.4 g/dL (14.0-18.0); Mean Corpuscular HGB CONC 30.6 g/dL (32.0-36.0); Mean Platelet Volume 7.2 fL (7.4-10.4); Platelet Count 218 thou/uL (130-400); RBC Distribution Width 17.1 % (11.5-14.5); Red Blood Cell (RBC) Count 5.16 mill/uL (4.70-6.10); White Blood Cell (WBC) Count 4.3 thou/uL (4.8-10.8)
[2020-11-01 09:53] LABS: Anion Gap 13 mmol/L (10-20); BUN (Urea Nitrogen) 9 mg/dL (8.4-25.7); Calc. Creatinine Clearance 82 mL/min (70-130); Calcium 9.4 mg/dL (7.8-10.44); Carbon Dioxide 24 mmol/L (23-31); Chloride 106 mmol/L (98-107); Glucose 100 mg/dL (80-115); Potassium 4.1 mmol/L (3.5-5.1); Sodium 139 mmol/L (136-145)
[2020-11-01] MEDS: Tamsulosin HCl 0.4 MG CAP PO SCH (10:03)
[2020-11-01] MEDS: Apixaban 5 MG TAB PO SCH ×2 (10:03→20:52)
[2020-11-01] MEDS: hydrALAZINE 25 MG TAB PO SCH ×4 (10:03→20:52)
[2020-11-01] MEDS: Doxycycline 100 MG CAP PO SCH ×2 (10:03→20:52)
[2020-11-01] MEDS: Nicotine 21 MG PATCH TD SCH (10:04)
[2020-11-01] MEDS: Aspirin 81 mg Enteric Coated Tablet PO SCH (10:04)
[2020-11-01] MEDS: cloNIDine 0.2 MG TAB PO SCH ×2 (15:27→20:51)
[2020-11-01] MEDS: Atorvastatin Calcium 40 MG TAB PO SCH (20:52)
[2020-11-02] MEDS: Doxycycline 100 MG CAP PO SCH (08:51)
[2020-11-02] MEDS: Aspirin 81 mg Enteric Coated Tablet PO SCH (08:51)
[2020-11-02] MEDS: cloNIDine 0.2 MG TAB PO SCH ×2 (08:51→14:48)
[2020-11-02] MEDS: Apixaban 5 MG TAB PO SCH (08:51)
[2020-11-02] MEDS: hydrALAZINE 25 MG TAB PO SCH ×2 (08:52→14:48)
[2020-11-02] MEDS: Tamsulosin HCl 0.4 MG CAP PO SCH (08:52)
[2020-11-02] MEDS: traMADol HCl 50 MG TAB PO PRN (08:52)
[2020-11-02] MEDS: Nicotine 21 MG PATCH TD SCH (11:02)
[2020-11-02 11:57] VITALS: BP 131/71; TEMP 98.4
== END 2020-11-02 15:27 | DRG 871 ==
LOC: ERS 18:00 → 2SE 21:40 → OBSVTOIN 10-26 13:50 → 2SE 11-01 12:55
PROVIDERS: ADMIT Student in an Organized Health Care Education/Training Program; ATTEND Internal Medicine
PROC: 0T2BX0Z Change Drainage Device in Bladder, External Approach (ICD-10-PCS; principal; 2020-10-30)
DX: A41.9 Sepsis, unspecified organism (principal); G93.41 Metabolic encephalopathy; J18.9 Pneumonia, unspecified organism; I82.412 Acute embolism and thrombosis of left femoral vein; N39.0 Urinary tract infection, site not specified; N17.9 Acute kidney failure, unspecified; G81.94 Hemiplegia, unspecified affecting left nondominant side; Z20.822 Contact with and (suspected) exposure to COVID-19; R33.9 Retention of urine, unspecified; G93.89 Other specified disorders of brain; B35.1 Tinea unguium; R13.10 Dysphagia, unspecified; I12.9 Hypertensive chronic kidney disease with stage 1 through stage 4 chronic kidney disease, or unspecified chronic kidney disease; N18.9 Chronic kidney disease, unspecified; Z88.5 Allergy status to narcotic agent; Z79.899 Other long term (current) drug therapy; Z90.49 Acquired absence of other specified parts of digestive tract; Z87.891 Personal history of nicotine dependence; Z86.73 Personal history of transient ischemic attack (TIA), and cerebral infarction without residual deficits
CPT/HCPCS: 36415; 36416; 70450; 70551; 71045; 80048; 80053; 80061; 81003; 81015; 82550; 82553; 83605; 84484; 85025; 85610; 87040; 90471; 90732; 93005; 93306; 93880; 95712; 95819; 95957; 96365; 96367; 96372; 96375; 96376; G0009; G0378; J0360; J0456; J0692; J0696; J1650; J3490; U0003; U0005

== ENCOUNTER 2021-06-24 16:10 | Outpatient (CLI) | payer MEDICARE, MEDICAID | END 2021-06-24 16:11 | disposition home or self-care (01) | LOC: BICCT 16:10 | PROVIDERS: ATTEND Nurse Practitioner Family | DX: Z13.820 Encounter for screening for osteoporosis (principal); F17.210 Nicotine dependence, cigarettes, uncomplicated; I71.4 Abdominal aortic aneurysm, without rupture | CPT/HCPCS: 71271 ==

== ENCOUNTER 2021-09-01 08:36 | Outpatient (CLI) | payer OTHER | END 2021-09-01 08:37 | disposition home or self-care (01) | LOC: BICCT 08:36 | PROVIDERS: ATTEND Thoracic Surgery (Cardiothoracic Vascular Surgery) | DX: I71.4 Abdominal aortic aneurysm, without rupture (principal) | CPT/HCPCS: 82565 ==

== ENCOUNTER 2021-09-19 10:33 | Outpatient (CLI) | payer OTHER ==
[2021-09-19 11:19] LABS: Estimated GFR-MDRD - POC Greater than 90
== END 2021-09-19 10:34 | disposition home or self-care (01) ==
LOC: BICCT 10:33
PROVIDERS: ATTEND Thoracic Surgery (Cardiothoracic Vascular Surgery)
DX: I71.4 Abdominal aortic aneurysm, without rupture (principal); N26.1 Atrophy of kidney (terminal); I72.2 Aneurysm of renal artery; I70.90 Unspecified atherosclerosis
CPT/HCPCS: 74176; 82565

== ENCOUNTER 2021-12-21 17:05 | Inpatient (IN) | payer OTHER ==
[~2021-12-21 17:05] MED LIST: Iopamidol 370 76% 100 ML VIAL ONE
[2021-12-21] MEDS ORDERED: Ondansetron PF 4 MG/2 ML Vial ONE (17:49)
[2021-12-21] MEDS ORDERED: Pantoprazole 40 MG VIAL ONE (17:49)
[2021-12-21 18:09] LABS: Hemoglobin 16.9 g/dL (14.0-18.0); Mean Corpuscular Hemoglobin 29.9 pg (27.0-31.0); Mean Corpuscular Volume 90.6 fL (78.0-98.0); Mean Platelet Volume 7.8 fL (7.4-10.4); Platelet Count 287 thou/uL (130-400); RBC Distribution Width 16.1 % (11.5-14.5); Red Blood Cell (RBC) Count 5.66 mill/uL (4.70-6.10); White Blood Cell (WBC) Count 10.8 thou/uL (4.8-10.8)
[2021-12-21 18:16] LABS: ALT (SGPT) 15 U/L (8-55); AST (SGOT) 16 U/L (5-34); Albumin 4.8 g/dL (3.4-4.8); Alkaline Phosphatase 91 U/L (40-110); Anion Gap 20 mmol/L (10-20); BUN (Urea Nitrogen) 21 mg/dL (8.4-25.7); Bilirubin, Total 0.9 mg/dL (0.2-1.2); Calc. Creatinine Clearance 0 mL/min (70-130); Calcium 10.7 mg/dL (7.8-10.44); Carbon Dioxide 23 mmol/L (23-31); Chloride 102 mmol/L (98-107); Estimated GFR 31; Globulin 4.2 g/dL (2.4-3.5); Glucose 143 mg/dL (83-110); Lipase 18 U/L (8-78); Sodium 142 mmol/L (136-145)
[2021-12-21 18:23] LABS: Potassium 2.8 mmol/L (3.5-5.1)
[2021-12-21 18:36] LABS: CKMB 3.2 ng/mL (0-6.6)
[2021-12-21 18:51] LABS: Anisocytosis SLIGHT = 6-15 cells (100X) (0-5/hpf); Band 1 % (5-11); Lymphocytes 9 % (21-51); MDiff Complete? YES; Monocytes 7 % (0-10); Neutrophil 82 % (42-75); Platelet Morphology Comment Appears Adequate; Polychromasia SLIGHT = 2-3 cells (100X) (0-2/hpf); Reactive Lymphocytes 1 % (0-10)
[2021-12-21] MEDS ORDERED: Aspirin Chewable 81 MG TAB ONE (20:36)
[2021-12-21] MEDS ORDERED: Potassium Chloride 20 MEQ TAB ONE (20:36)
[2021-12-21] MEDS ORDERED: Acetaminophen 500 MG TAB ONE (20:43)
[2021-12-21 21:24] LABS: Troponin I 0.071 ng/mL (< 0.028)
[2021-12-21] MEDS ORDERED: Ondansetron PF 4 MG/2 ML Vial IVP PRN (22:02)
[2021-12-21] MEDS ORDERED: Ondansetron ODT 4 MG TAB PO PRN (22:02)
[2021-12-21] MEDS ORDERED: Acetaminophen 650 MG Suppository PR PRN (22:02)
[2021-12-21] MEDS ORDERED: Acetaminophen 325 MG TAB PO PRN (22:02)
[2021-12-21] MEDS ORDERED: Carvedilol 3.125 MG TAB PO SCH (22:15)
[2021-12-21] MEDS ORDERED: hydrALAZINE 25 MG TAB PO SCH (22:15)
[2021-12-21] MEDS ORDERED: Potassium Chloride 20 MEQ in Lactated Ringer's 1,000 ML IV SCH (22:30)
[2021-12-21 22:43] LABS: Magnesium 2.2 mg/dL (1.6-2.6); Phosphorus 2.5 mg/dL (2.3-4.7)
[2021-12-21 22:45] VITALS: BMI 28.4
[2021-12-21 23:25] LABS: SARS-CoV-2 NAA Rapid Test Not Detected (NotDetected)
[2021-12-21 23:51] LABS: Troponin I 0.075 ng/mL (< 0.028)
[2021-12-21] MEDS ORDERED: Potassium Chloride 20 MEQ in Premix Bag 1 BAG IVPB SCH (23:59)
[2021-12-22] MEDS ORDERED: Lactated Ringer's 1,000 ML IV SCH ×2 (01:00→04:15)
[2021-12-22] MEDS: hydrALAZINE 20 MG/ML VIAL SLOW IVP PRN ×4 (01:39→16:14)
[2021-12-22] MEDS: Labetalol HCl 100 MG/20 ML VIAL SLOW IVP PRN ×4 (03:39→23:48)
[2021-12-22 05:12] LABS: Troponin I 0.073 ng/mL (< 0.028)
[2021-12-22 05:58] LABS: Anion Gap 17 mmol/L (10-20); BUN (Urea Nitrogen) 21 mg/dL (8.4-25.7); Calc. Creatinine Clearance 44 mL/min (70-130); Calcium 9.9 mg/dL (7.8-10.44); Carbon Dioxide 24 mmol/L (23-31); Estimated GFR 36; Glucose 151 mg/dL (83-110); Magnesium 2.2 mg/dL (1.6-2.6)
[2021-12-22 06:19] LABS: #Eosinphils 0.1 thou/uL (0.0-0.7); #Lymphocytes 0.8 thou/uL (1.20-3.40); #Monocytes 0.5 thou/uL (0.11-0.59); #Neutrophils 6.7 thou/uL (1.40-6.50); %Basophils 0.4 % (0.0-1.0); %Lymphocytes 9.6 % (21.0-51.0); %Monocytes 6.3 % (0.0-10.0); %Neutrophils 82.7 % (42.0-75.0); Hemoglobin 15.3 g/dL (14.0-18.0); Mean Corpuscular HGB CONC 31.5 g/dL (32.0-36.0); Mean Corpuscular Hemoglobin 29.1 pg (27.0-31.0); Mean Corpuscular Volume 92.5 fL (78.0-98.0); Mean Platelet Volume 7.6 fL (7.4-10.4); Platelet Count 267 thou/uL (130-400); RBC Distribution Width 16.1 % (11.5-14.5); Red Blood Cell (RBC) Count 5.24 mill/uL (4.70-6.10); White Blood Cell (WBC) Count 8.1 thou/uL (4.8-10.8)
[2021-12-22 06:21] LABS: Chloride 104 mmol/L (98-107); Potassium 3.5 mmol/L (3.5-5.1); Sodium 141 mmol/L (136-145)
[2021-12-22] MEDS ORDERED: Carvedilol 6.25 MG TAB PO SCH ×2 (08:00→09:15)
[2021-12-22] MEDS: Amlodipine 10 MG TAB PO SCH (08:16)
[2021-12-22] MEDS: Pantoprazole 40 MG VIAL IVP SCH (08:16)
[2021-12-22] MEDS ORDERED: hydrALAZINE 25 MG TAB PO SCH (09:00)
[2021-12-22] MEDS: hydrALAZINE 25 MG TAB PO SCH ×3 (09:23→20:06)
[2021-12-22 09:56] LABS: Hemoglobin A1c 5.6 % (4.0-6.0)
[2021-12-22 12:21] VITALS: BP 155/65
[2021-12-22 15:07] LABS: Hemoglobin 14.9 g/dL (14.0-18.0); Platelet Count 285 thou/uL (130-400)
[2021-12-22] MEDS: Carvedilol 6.25 MG TAB PO SCH (16:15)
[2021-12-23 04:10] LABS: #Eosinphils 0.2 thou/uL (0.0-0.7); #Lymphocytes 1.3 thou/uL (1.20-3.40); #Monocytes 0.6 thou/uL (0.11-0.59); #Neutrophils 6.6 thou/uL (1.40-6.50); %Basophils 0.4 % (0.0-1.0); %Eosinophils 2.1 % (0.0-10.0); %Lymphocytes 14.5 % (21.0-51.0); %Monocytes 7.1 % (0.0-10.0); %Neutrophils 75.9 % (42.0-75.0); Hemoglobin 14.9 g/dL (14.0-18.0); Mean Corpuscular HGB CONC 32.5 g/dL (32.0-36.0); Platelet Count 259 thou/uL (130-400); RBC Distribution Width 16.1 % (11.5-14.5); Red Blood Cell (RBC) Count 4.96 mill/uL (4.70-6.10); White Blood Cell (WBC) Count 8.7 thou/uL (4.8-10.8)
[2021-12-23] MEDS: Labetalol HCl 100 MG/20 ML VIAL SLOW IVP PRN (04:21)
[2021-12-23 04:29] LABS: Anion Gap 14 mmol/L (10-20); BUN (Urea Nitrogen) 18 mg/dL (8.4-25.7); Calc. Creatinine Clearance 48 mL/min (70-130); Calcium 9.8 mg/dL (7.8-10.44); Carbon Dioxide 26 mmol/L (23-31); Chloride 103 mmol/L (98-107); Estimated GFR 40; Glucose 113 mg/dL (83-110); Sodium 140 mmol/L (136-145)
[2021-12-23] MEDS: hydrALAZINE 25 MG TAB PO SCH ×2 (08:39→14:31)
[2021-12-23] MEDS: Amlodipine 10 MG TAB PO SCH (08:40)
[2021-12-23] MEDS: Carvedilol 6.25 MG TAB PO SCH (08:40)
[2021-12-23] MEDS: Potassium Chloride 20 MEQ TAB PO SCH ×2 (08:41→16:46)
[2021-12-23] MEDS: Pantoprazole 40 MG VIAL IVP SCH (08:41)
[2021-12-23] MEDS ORDERED: Lisinopril 10 MG TAB PO SCH (09:00)
[2021-12-23] MEDS: Carvedilol 25 MG TAB PO SCH ×2 (09:42→16:46)
[2021-12-23 16:14] VITALS: TEMP 98.5
== END 2021-12-23 17:50 | disposition home or self-care (01) | DRG 300 ==
LOC: ERS 17:05 → 2SW 20:37 → OBSVTOIN 22:02 → IMCU/EMU 12-22 12:43
PROVIDERS: ADMIT Student in an Organized Health Care Education/Training Program; ATTEND Student in an Organized Health Care Education/Training Program
DX: I71.4 Abdominal aortic aneurysm, without rupture (principal); N17.9 Acute kidney failure, unspecified; Z20.822 Contact with and (suspected) exposure to COVID-19; J44.9 Chronic obstructive pulmonary disease, unspecified; F17.210 Nicotine dependence, cigarettes, uncomplicated; I16.0 Hypertensive urgency; R77.8 Other specified abnormalities of plasma proteins; E87.6 Hypokalemia; E83.52 Hypercalcemia; N18.30 Chronic kidney disease, stage 3 unspecified; I12.9 Hypertensive chronic kidney disease with stage 1 through stage 4 chronic kidney disease, or unspecified chronic kidney disease; Z86.73 Personal history of transient ischemic attack (TIA), and cerebral infarction without residual deficits; Z88.5 Allergy status to narcotic agent; Z79.899 Other long term (current) drug therapy; Z79.01 Long term (current) use of anticoagulants; Z90.49 Acquired absence of other specified parts of digestive tract; Z71.6 Tobacco abuse counseling
CPT/HCPCS: 36415; 70450; 71045; 74177; 76770; 80048; 80053; 82088; 82553; 83036; 83690; 83735; 84100; 84244; 84484; 85025; 86850; 86900; 86901; 93005; 93306; 93975; C9113; G0378; J0360; J2405; J3480; J7120; Q9967; U0002

== ENCOUNTER 2022-01-10 13:10 | Emergency (ER) | payer OTHER ==
[2022-01-10 13:31] LABS: #Eosinphils 0.2 thou/uL (0.0-0.7); #Lymphocytes 1.4 thou/uL (1.20-3.40); #Monocytes 0.5 thou/uL (0.11-0.59); #Neutrophils 6.9 thou/uL (1.40-6.50); %Basophils 0.4 % (0.0-1.0); %Eosinophils 2.3 % (0.0-10.0); %Lymphocytes 15.6 % (21.0-51.0); %Monocytes 5.9 % (0.0-10.0); %Neutrophils 75.7 % (42.0-75.0); Hemoglobin 14.5 g/dL (14.0-18.0); Mean Corpuscular HGB CONC 32.7 g/dL (32.0-36.0); Mean Corpuscular Hemoglobin 30.2 pg (27.0-31.0); Mean Corpuscular Volume 92.5 fL (78.0-98.0); Mean Platelet Volume 7.1 fL (7.4-10.4); Platelet Count 299 thou/uL (130-400); RBC Distribution Width 15.8 % (11.5-14.5); Red Blood Cell (RBC) Count 4.78 mill/uL (4.70-6.10); White Blood Cell (WBC) Count 9.1 thou/uL (4.8-10.8)
[2022-01-10 13:57] LABS: ALT (SGPT) 28 U/L (8-55); AST (SGOT) 17 U/L (5-34); Alkaline Phosphatase 68 U/L (40-110); Anion Gap 16 mmol/L (10-20); BUN (Urea Nitrogen) 30 mg/dL (8.4-25.7); Bilirubin, Total 0.4 mg/dL (0.2-1.2); Calc. Creatinine Clearance 0 mL/min (70-130); Calcium 9.5 mg/dL (7.8-10.44); Carbon Dioxide 18 mmol/L (23-31); Chloride 112 mmol/L (98-107); Estimated GFR 37; Globulin 2.9 g/dL (2.4-3.5); Glucose 102 mg/dL (83-110); Lipase 29 U/L (8-78); Potassium 5.1 mmol/L (3.5-5.1); Protein, Total 6.9 g/dL (5.8-8.1); Sodium 141 mmol/L (136-145)
[2022-01-10 16:03] LABS: Bilirubin Negative (Negative); Blood, Urine Negative (Negative); Clarity Turbid (Clear); Glucose, Urine (Dipstick) Normal (Negative); Ketone, Urine Negative (Negative); Leukocyte 500 Leu/uL (Negative); Nitrite 2+ (Negative); Protein, Urine (Dipstick) 30 mg/dL (Neg-Trace); Urobilinogen Normal mg/dL (Less than 2); WBC/HPF Greater than 50 HPF (0-3)
[2022-01-10 16:04] LABS: Bacteria/HPF 1+ HPF (None Seen)
[2022-01-10 16:46] LABS: SARS-CoV-2 NAA Rapid Test Not Detected (NotDetected)
[2022-01-10] MEDS ORDERED: cefTRIAXone\\ROCEPHIN 2 GM VIAL ONE (16:57)
== END 2022-01-10 18:08 | disposition home or self-care (01) ==
LOC: ERS 13:10
DX: E86.0 Dehydration (principal); N39.0 Urinary tract infection, site not specified; R19.7 Diarrhea, unspecified; I10 Essential (primary) hypertension; Z79.899 Other long term (current) drug therapy; Z20.822 Contact with and (suspected) exposure to COVID-19
CPT/HCPCS: 80053; 82550; 83690; 84484; 85025; 87077; 87086; 93005; 96361; 96365; 99284; U0002; 36415; 81003; 81015; 87186; J0696

== ENCOUNTER 2022-04-05 15:34 | Inpatient (IN) | payer OTHER ==
[2022-04-05 16:20] LABS: #Lymphocytes 0.7 thou/uL (1.20-3.40); #Monocytes 0.6 thou/uL (0.11-0.59); %Basophils 0.2 % (0.0-1.0); %Eosinophils 0.4 % (0.0-10.0); %Lymphocytes 10.3 % (21.0-51.0); %Monocytes 9.3 % (0.0-10.0); %Neutrophils 79.8 % (42.0-75.0); Hemoglobin 13.9 g/dL (14.0-18.0); Mean Corpuscular HGB CONC 31.9 g/dL (32.0-36.0); Mean Corpuscular Hemoglobin 27.6 pg (27.0-31.0); Mean Corpuscular Volume 86.6 fl (78.0-98.0); Mean Platelet Volume 7.4 fL (7.4-10.4); Platelet Count 212 10x3/uL (130-400); RBC Distribution Width 16.3 % (11.5-14.5); Red Blood Cell (RBC) Count 5.02 mill/uL (4.70-6.10); White Blood Cell (WBC) Count 6.3 10x3/uL (4.8-10.8)
[2022-04-05 16:33] LABS: INR-International Normal Ratio 1.1; PTT 38.1 sec (22.9-36.1); Prothrombin Time 14.8 sec (12.0-14.7)
[2022-04-05 16:40] LABS: ALT (SGPT) 18 U/L (8-55); AST (SGOT) 27 U/L (5-34); Albumin 4.3 g/dL (3.4-4.8); Alkaline Phosphatase 93 U/L (40-110); Anion Gap 14 mmol/L (10-20); BUN (Urea Nitrogen) 24 mg/dL (8.4-25.7); Bilirubin, Total 1.1 mg/dL (0.2-1.2); Calc. Creatinine Clearance 0 mL/min (70-130); Calcium 9.6 mg/dL (7.8-10.44); Carbon Dioxide 24 mmol/L (23-31); Chloride 106 mmol/L (98-107); Estimated GFR 32; Glucose 101 mg/dL (83-110); Potassium 4.2 mmol/L (3.5-5.1); Protein, Total 8.3 g/dL (5.8-8.1); Sodium 140 mmol/L (136-145)
[2022-04-05] MEDS ORDERED: cefTRIAXone\\ROCEPHIN 1 GM VIAL ONE (17:26)
[2022-04-05] MEDS ORDERED: Azithromycin 500 MG VIAL ONE (17:26)
[2022-04-05 18:09] LABS: CKMB 1.6 ng/mL (0-6.6)
[2022-04-05] MEDS ORDERED: methylPREDNISolone Sod Succ/PF 125 MG/2 ML VIAL ONE (20:12)
[2022-04-05] MEDS ORDERED: Aspirin Chewable 81 MG TAB ONE (20:12)
[2022-04-05] MEDS ORDERED: hydrALAZINE 25 MG TAB ONE (21:03)
[2022-04-05 21:20] LABS: CKMB 1.9 ng/mL (0-6.6)
[2022-04-05 21:42] LABS: SARS-CoV-2 NAA Rapid Test Not Detected (NotDetected)
[2022-04-05] MEDS ORDERED: Labetalol HCl 100 MG/20 ML VIAL ONE (22:06)
[2022-04-05] MEDS ORDERED: Ondansetron ODT 4 MG TAB PO PRN (22:45)
[2022-04-05] MEDS ORDERED: Acetaminophen 325 MG TAB PO PRN (22:45)
[2022-04-05 23:26] VITALS: BMI 30.7
[2022-04-05] MEDS ORDERED: Oseltamivir 75 MG CAP PO SCH (23:30)
[2022-04-05] MEDS ORDERED: Labetalol HCl 100 MG/20 ML VIAL SLOW IVP SCH (23:30)
[2022-04-06] MEDS ORDERED: Amlodipine 10 MG TAB PO SCH (01:00)
[2022-04-06 04:17] LABS: #Lymphocytes 0.5 thou/uL (1.20-3.40); #Monocytes 0.1 thou/uL (0.11-0.59); #Neutrophils 4.2 thou/uL (1.40-6.50); %Eosinophils 0.1 % (0.0-10.0); %Lymphocytes 9.9 % (21.0-51.0); %Monocytes 2.4 % (0.0-10.0); %Neutrophils 87.6 % (42.0-75.0); Hemoglobin 12.7 g/dL (14.0-18.0); Mean Corpuscular HGB CONC 32.1 g/dL (32.0-36.0); Mean Corpuscular Hemoglobin 28.6 pg (27.0-31.0); Mean Corpuscular Volume 89.1 fl (78.0-98.0); Mean Platelet Volume 7.4 fL (7.4-10.4); Platelet Count 188 10x3/uL (130-400); RBC Distribution Width 16.1 % (11.5-14.5); Red Blood Cell (RBC) Count 4.45 mill/uL (4.70-6.10); White Blood Cell (WBC) Count 4.8 10x3/uL (4.8-10.8)
[2022-04-06 04:40] LABS: ALT (SGPT) 15 U/L (8-55); AST (SGOT) 21 U/L (5-34); Albumin 3.7 g/dL (3.4-4.8); Alkaline Phosphatase 73 U/L (40-110); Anion Gap 13 mmol/L (10-20); BUN (Urea Nitrogen) 23 mg/dL (8.4-25.7); Bilirubin, Total 0.4 mg/dL (0.2-1.2); Calc. Creatinine Clearance 48 mL/min (70-130); Calcium 8.6 mg/dL (7.8-10.44); Carbon Dioxide 20 mmol/L (23-31); Chloride 109 mmol/L (98-107); Estimated GFR 38; Globulin 3.1 g/dL (2.4-3.5); Glucose 155 mg/dL (83-110); Potassium 4.1 mmol/L (3.5-5.1); Protein, Total 6.8 g/dL (5.8-8.1); Sodium 138 mmol/L (136-145)
[2022-04-06] MEDS ORDERED: Lisinopril 10 MG TAB PO SCH ×2 (09:00→12:30)
[2022-04-06] MEDS ORDERED: Hydrochlorothiazide 25 MG TAB PO SCH ×2 (09:00→16:45)
[2022-04-06] MEDS: predniSONE 20 MG TAB PO SCH (09:16)
[2022-04-06] MEDS: Famotidine 20 MG TAB PO SCH (09:16)
[2022-04-06] MEDS: Amlodipine 10 MG TAB PO SCH (09:17)
[2022-04-06] MEDS: hydrALAZINE 25 MG TAB PO SCH ×3 (09:18→21:01)
[2022-04-06] MEDS: Apixaban 5 MG TAB PO SCH ×2 (09:19→21:01)
[2022-04-06] MEDS: Oseltamivir 6 MG/ML ORAL SUSP PO SCH ×2 (09:21→21:01)
[2022-04-06] MEDS ORDERED: cefTRIAXone\\ROCEPHIN 1 GM in Sodium Chloride 0.9% 100 ML IVPB SCH (17:00)
[2022-04-06] MEDS: Azithromycin 500 MG in Sodium Chloride 0.9% 250 ML 250 ML IVPB SCH (18:04)
[2022-04-06] MEDS: Mometasone 200 MCG/Formoterol 5 MCG 120 PUFF INHALER INH SCH (19:55)
[2022-04-07 04:03] LABS: #Lymphocytes 0.8 thou/uL (1.20-3.40); #Monocytes 0.6 thou/uL (0.11-0.59); %Eosinophils 0.2 % (0.0-10.0); %Lymphocytes 8.4 % (21.0-51.0); %Neutrophils 85.4 % (42.0-75.0); Hemoglobin 12.2 g/dL (14.0-18.0); Mean Corpuscular Hemoglobin 27.1 pg (27.0-31.0); Mean Corpuscular Volume 87.6 fl (78.0-98.0); Mean Platelet Volume 7.7 fL (7.4-10.4); Platelet Count 223 10x3/uL (130-400); RBC Distribution Width 15.9 % (11.5-14.5); Red Blood Cell (RBC) Count 4.51 mill/uL (4.70-6.10); White Blood Cell (WBC) Count 9.3 10x3/uL (4.8-10.8)
[2022-04-07 04:27] LABS: ALT (SGPT) 13 U/L (8-55); AST (SGOT) 16 U/L (5-34); Albumin 3.6 g/dL (3.4-4.8); Alkaline Phosphatase 71 U/L (40-110); Anion Gap 14 mmol/L (10-20); BUN (Urea Nitrogen) 36 mg/dL (8.4-25.7); Bilirubin, Total 0.3 mg/dL (0.2-1.2); Calc. Creatinine Clearance 49 mL/min (70-130); Calcium 8.8 mg/dL (7.8-10.44); Carbon Dioxide 21 mmol/L (23-31); Chloride 105 mmol/L (98-107); Estimated GFR 39; Globulin 3.1 g/dL (2.4-3.5); Glucose 124 mg/dL (83-110); Potassium 3.7 mmol/L (3.5-5.1); Protein, Total 6.7 g/dL (5.8-8.1); Sodium 136 mmol/L (136-145)
[2022-04-07] MEDS: Mometasone 200 MCG/Formoterol 5 MCG 120 PUFF INHALER INH SCH ×2 (07:54→18:36)
[2022-04-07] MEDS: Oseltamivir 6 MG/ML ORAL SUSP PO SCH ×2 (08:37→19:34)
[2022-04-07] MEDS: hydrALAZINE 25 MG TAB PO SCH ×3 (08:38→19:34)
[2022-04-07] MEDS: Amlodipine 10 MG TAB PO SCH (08:39)
[2022-04-07] MEDS: predniSONE 20 MG TAB PO SCH (08:39)
[2022-04-07] MEDS: Famotidine 20 MG TAB PO SCH (08:39)
[2022-04-07] MEDS: Apixaban 5 MG TAB PO SCH ×2 (08:39→19:35)
[2022-04-07] MEDS: Hydrochlorothiazide 25 MG TAB PO SCH (08:40)
[2022-04-07] MEDS ORDERED: Lisinopril 10 MG TAB PO SCH (09:00)
[2022-04-07] MEDS: Azithromycin 500 MG in Sodium Chloride 0.9% 250 ML 250 ML IVPB SCH (18:01)
[2022-04-08 04:02] LABS: #Monocytes 0.4 thou/uL (0.11-0.59); #Neutrophils 7.5 thou/uL (1.40-6.50); %Basophils 0.1 % (0.0-1.0); %Eosinophils 0.1 % (0.0-10.0); %Lymphocytes 11.5 % (21.0-51.0); %Monocytes 4.8 % (0.0-10.0); %Neutrophils 83.5 % (42.0-75.0); Mean Corpuscular HGB CONC 32.2 g/dL (32.0-36.0); Mean Corpuscular Hemoglobin 28.4 pg (27.0-31.0); Mean Corpuscular Volume 88.2 fl (78.0-98.0); Mean Platelet Volume 7.3 fL (7.4-10.4); Platelet Count 241 10x3/uL (130-400); RBC Distribution Width 15.9 % (11.5-14.5); Red Blood Cell (RBC) Count 4.59 mill/uL (4.70-6.10); White Blood Cell (WBC) Count 8.9 10x3/uL (4.8-10.8)
[2022-04-08 04:23] LABS: ALT (SGPT) 14 U/L (8-55); AST (SGOT) 13 U/L (5-34); Albumin 3.7 g/dL (3.4-4.8); Alkaline Phosphatase 69 U/L (40-110); Anion Gap 13 mmol/L (10-20); BUN (Urea Nitrogen) 39 mg/dL (8.4-25.7); Bilirubin, Total 0.2 mg/dL (0.2-1.2); Calc. Creatinine Clearance 49 mL/min (70-130); Calcium 9.2 mg/dL (7.8-10.44); Carbon Dioxide 25 mmol/L (23-31); Chloride 103 mmol/L (98-107); Estimated GFR 39; Globulin 3.3 g/dL (2.4-3.5); Glucose 106 mg/dL (83-110); Potassium 3.6 mmol/L (3.5-5.1); Sodium 137 mmol/L (136-145)
[2022-04-08] MEDS: Oseltamivir 6 MG/ML ORAL SUSP PO SCH ×2 (09:09→20:35)
[2022-04-08] MEDS: hydrALAZINE 25 MG TAB PO SCH ×3 (09:09→20:35)
[2022-04-08] MEDS: predniSONE 20 MG TAB PO SCH (09:09)
[2022-04-08] MEDS: Hydrochlorothiazide 25 MG TAB PO SCH (09:10)
[2022-04-08] MEDS: Famotidine 20 MG TAB PO SCH (09:10)
[2022-04-08] MEDS: Amlodipine 10 MG TAB PO SCH (09:10)
[2022-04-08] MEDS: Apixaban 5 MG TAB PO SCH ×2 (09:10→20:35)
[2022-04-08] MEDS ORDERED: Lisinopril 20 MG TAB PO SCH (11:00)
[2022-04-08] MEDS: Mometasone 200 MCG/Formoterol 5 MCG 120 PUFF INHALER INH SCH ×2 (11:10→19:14)
[2022-04-08] MEDS ORDERED: Azithromycin 250 MG TAB PO SCH (18:00)
[2022-04-09] MEDS: Mometasone 200 MCG/Formoterol 5 MCG 120 PUFF INHALER INH SCH ×2 (07:03→20:02)
[2022-04-09] MEDS ORDERED: Lisinopril 20 MG TAB PO SCH (09:00)
[2022-04-09] MEDS: Apixaban 5 MG TAB PO SCH ×2 (09:44→22:14)
[2022-04-09] MEDS: Oseltamivir 6 MG/ML ORAL SUSP PO SCH ×2 (09:44→22:15)
[2022-04-09] MEDS: Famotidine 20 MG TAB PO SCH (09:44)
[2022-04-09] MEDS: predniSONE 20 MG TAB PO SCH (09:45)
[2022-04-09 10:56] LABS: Anion Gap 16 mmol/L (10-20); BUN (Urea Nitrogen) 49 mg/dL (8.4-25.7); Calc. Creatinine Clearance 42 mL/min (70-130); Calcium 9.4 mg/dL (7.8-10.44); Carbon Dioxide 23 mmol/L (23-31); Chloride 101 mmol/L (98-107); Estimated GFR 32; Glucose 117 mg/dL (83-110); Sodium 137 mmol/L (136-145)
[2022-04-09] MEDS ORDERED: Ondansetron PF 4 MG/2 ML Vial IVP PRN (11:44)
[2022-04-09] MEDS: Amlodipine 10 MG TAB PO SCH (12:03)
[2022-04-09] MEDS: Hydrochlorothiazide 25 MG TAB PO SCH (12:03)
[2022-04-09] MEDS: Lisinopril 20 MG TAB PO SCH (12:03)
[2022-04-09] MEDS: hydrALAZINE 25 MG TAB PO SCH ×3 (12:03→22:14)
[2022-04-09] MEDS ORDERED: Potassium Chloride 20 MEQ TAB PO SCH (14:30)
[2022-04-09 16:01] LABS: Magnesium 2.3 mg/dL (1.6-2.6)
[2022-04-10 04:57] LABS: #Lymphocytes 1.2 thou/uL (1.20-3.40); #Monocytes 0.6 thou/uL (0.11-0.59); #Neutrophils 8.1 thou/uL (1.40-6.50); %Basophils 0.2 % (0.0-1.0); %Eosinophils 0.2 % (0.0-10.0); %Monocytes 6.4 % (0.0-10.0); %Neutrophils 81.2 % (42.0-75.0); Hemoglobin 13.8 g/dL (14.0-18.0); Mean Corpuscular HGB CONC 32.1 g/dL (32.0-36.0); Mean Corpuscular Volume 87.2 fl (78.0-98.0); Mean Platelet Volume 7.8 fL (7.4-10.4); Platelet Count 257 10x3/uL (130-400); RBC Distribution Width 16.2 % (11.5-14.5); Red Blood Cell (RBC) Count 4.94 mill/uL (4.70-6.10)
[2022-04-10 05:22] LABS: Anion Gap 15 mmol/L (10-20); BUN (Urea Nitrogen) 52 mg/dL (8.4-25.7); Calc. Creatinine Clearance 45 mL/min (70-130); Calcium 9.1 mg/dL (7.8-10.44); Carbon Dioxide 24 mmol/L (23-31); Chloride 101 mmol/L (98-107); Estimated GFR 35; Glucose 109 mg/dL (83-110); Potassium 4.2 mmol/L (3.5-5.1); Sodium 136 mmol/L (136-145)
[2022-04-10] MEDS: Mometasone 200 MCG/Formoterol 5 MCG 120 PUFF INHALER INH SCH ×2 (07:22→19:50)
[2022-04-10 07:53] VITALS: TEMP 97.8
[2022-04-10] MEDS: hydrALAZINE 25 MG TAB PO SCH ×2 (09:12→13:48)
[2022-04-10] MEDS: Hydrochlorothiazide 25 MG TAB PO SCH (09:14)
[2022-04-10] MEDS: Amlodipine 10 MG TAB PO SCH (09:14)
[2022-04-10] MEDS: Famotidine 20 MG TAB PO SCH (09:14)
[2022-04-10] MEDS: Lisinopril 20 MG TAB PO SCH (09:14)
[2022-04-10] MEDS: Apixaban 5 MG TAB PO SCH (09:14)
[2022-04-10] MEDS: Oseltamivir 6 MG/ML ORAL SUSP PO SCH (10:52)
[2022-04-10 15:48] VITALS: BP 153/70
== END 2022-04-10 20:00 | disposition home or self-care (01) | DRG 193 ==
LOC: ERS 15:34 → 2NO 20:17
PROVIDERS: ADMIT Student in an Organized Health Care Education/Training Program; ATTEND Student in an Organized Health Care Education/Training Program
DX: J10.1 Influenza due to other identified influenza virus with other respiratory manifestations (principal); J96.01 Acute respiratory failure with hypoxia; J44.1 Chronic obstructive pulmonary disease with (acute) exacerbation; N17.9 Acute kidney failure, unspecified; J44.0 Chronic obstructive pulmonary disease with (acute) lower respiratory infection; I12.9 Hypertensive chronic kidney disease with stage 1 through stage 4 chronic kidney disease, or unspecified chronic kidney disease; I16.0 Hypertensive urgency; N18.32 Chronic kidney disease, stage 3b; D22.9 Melanocytic nevi, unspecified; I44.1 Atrioventricular block, second degree; Z20.822 Contact with and (suspected) exposure to COVID-19; Z88.5 Allergy status to narcotic agent; Z79.899 Other long term (current) drug therapy; Z90.49 Acquired absence of other specified parts of digestive tract; Z86.73 Personal history of transient ischemic attack (TIA), and cerebral infarction without residual deficits; Z87.891 Personal history of nicotine dependence
CPT/HCPCS: 36415; 70450; 71045; 80048; 80053; 82550; 82553; 83605; 83735; 84145; 84443; 84484; 85025; 85610; 85730; 87040; 93005; 93010; 94640; 94760; 96365; 96367; 96375; 97139; J0456; J0696; J2405; J2930; J7050; J7512; J7620

== ENCOUNTER 2022-04-30 15:20 | Inpatient (IN) | payer OTHER ==
[~2022-04-30 15:20] MED LIST changes: -Iopamidol 370 76% 100 ML VIAL ONE; +Iopamidol-370 76% 500 ML 1 ML ONE
[2022-04-30 16:27] LABS: #Eosinphils 0.1 thou/uL (0.0-0.7); #Lymphocytes 0.8 thou/uL (1.20-3.40); #Monocytes 0.8 thou/uL (0.11-0.59); #Neutrophils 14.7 thou/uL (1.40-6.50); %Eosinophils 0.5 % (0.0-10.0); %Lymphocytes 4.8 % (21.0-51.0); %Monocytes 4.6 % (0.0-10.0); %Neutrophils 90.1 % (42.0-75.0); Hemoglobin 13.1 g/dL (14.0-18.0); Mean Corpuscular HGB CONC 32.2 g/dL (32.0-36.0); Mean Corpuscular Hemoglobin 27.2 pg (27.0-31.0); Mean Corpuscular Volume 84.4 fl (78.0-98.0); Mean Platelet Volume 7.3 fL (7.4-10.4); Platelet Count 508 10x3/uL (130-400); RBC Distribution Width 15.9 % (11.5-14.5); Red Blood Cell (RBC) Count 4.81 mill/uL (4.70-6.10); White Blood Cell (WBC) Count 16.3 10x3/uL (4.8-10.8)
[2022-04-30 16:49] LABS: ALT (SGPT) 43 U/L (8-55); AST (SGOT) 22 U/L (5-34); Albumin 3.8 g/dL (3.4-4.8); Alkaline Phosphatase 115 U/L (40-110); Anion Gap 27 mmol/L (10-20); BUN (Urea Nitrogen) 82 mg/dL (8.4-25.7); Bilirubin, Total 0.5 mg/dL (0.2-1.2); Calc. Creatinine Clearance 0 mL/min (70-130); Calcium 9.3 mg/dL (7.8-10.44); Carbon Dioxide 14 mmol/L (23-31); Chloride 100 mmol/L (98-107); Estimated GFR 8; Globulin 3.2 g/dL (2.4-3.5); Glucose 146 mg/dL (83-110); Lipase 130 U/L (8-78); Potassium 3.3 mmol/L (3.5-5.1); Sodium 138 mmol/L (136-145)
[2022-04-30 17:10] LABS: CKMB 1.5 ng/mL (0-6.6)
[2022-04-30 17:38] LABS: Bilirubin Negative (Negative); Blood, Urine Negative (Negative); Clarity Turbid (Clear); Glucose, Urine (Dipstick) Normal (Negative); Ketone, Urine Negative (Negative); Leukocyte 500 Leu/uL (Negative); Nitrite Negative (Negative); Protein, Urine (Dipstick) 50 mg/dL (Neg-Trace); RBC/HPF 0-3 HPF (0-3); Specific Gravity, Urine 1.019 (1.002-1.036); Urobilinogen Normal mg/dL (Less than 2)
[2022-04-30 17:39] LABS: Bacteria/HPF 1+ HPF (None Seen); WBC/HPF 21-50 HPF (0-3)
[2022-04-30] MEDS ORDERED: cefTRIAXone\\ROCEPHIN 2 GM VIAL ONE (18:53)
[2022-04-30] MEDS ORDERED: Aspirin Chewable 81 MG TAB ONE (18:53)
[2022-04-30 19:33] LABS: Lactic Acid 1.3 mmol/L (0.5-2.2)
[2022-04-30] MEDS ORDERED: Sodium Chloride 0.9% 1,000 ML IV SCH (21:45)
[2022-04-30 22:07] VITALS: BMI 28.2
[2022-04-30] MEDS: Lactated Ringer's 1,000 ML IV SCH (22:48)
[2022-05-01] MEDS ORDERED: Lactated Ringer's 500 ML IV SCH (00:15)
[2022-05-01] MEDS ORDERED: Digoxin 0.5 MG/2 ML AMP SLOW IVP SCH (00:45)
[2022-05-01 06:09] LABS: #Eosinphils 0.1 thou/uL (0.0-0.7); #Lymphocytes 0.9 thou/uL (1.20-3.40); #Monocytes 0.8 thou/uL (0.11-0.59); #Neutrophils 11.6 thou/uL (1.40-6.50); %Basophils 0.2 % (0.0-1.0); %Eosinophils 0.9 % (0.0-10.0); %Lymphocytes 6.5 % (21.0-51.0); %Monocytes 6.2 % (0.0-10.0); %Neutrophils 86.2 % (42.0-75.0); Hemoglobin 11.4 g/dL (14.0-18.0); Mean Corpuscular HGB CONC 32.4 g/dL (32.0-36.0); Mean Corpuscular Volume 83.3 fl (78.0-98.0); Mean Platelet Volume 7.2 fL (7.4-10.4); Platelet Count 404 10x3/uL (130-400); RBC Distribution Width 15.5 % (11.5-14.5); Red Blood Cell (RBC) Count 4.23 mill/uL (4.70-6.10); White Blood Cell (WBC) Count 13.4 10x3/uL (4.8-10.8)
[2022-05-01 06:29] LABS: Anion Gap 18 mmol/L (10-20); BUN (Urea Nitrogen) 70 mg/dL (8.4-25.7); Calc. Creatinine Clearance 17 mL/min (70-130); Carbon Dioxide 14 mmol/L (23-31); Estimated GFR 12; Glucose 85 mg/dL (83-110); Potassium 2.8 mmol/L (3.5-5.1)
[2022-05-01 06:36] LABS: Chloride 105 mmol/L (98-107); Sodium 134 mmol/L (136-145)
[2022-05-01] MEDS: Lactated Ringer's 1,000 ML IV SCH (06:37)
[2022-05-01] MEDS ORDERED: Enoxaparin Sodium 30 MG/0.3 ML SYRINGE SC SCH (09:00)
[2022-05-01] MEDS: Heparin 5,000 UNITS/ML VIAL SC SCH ×3 (09:00→21:42)
[2022-05-01] MEDS: Famotidine 20 MG TAB PO SCH (09:01)
[2022-05-01] MEDS ORDERED: Potassium Chloride 20 MEQ TAB PO SCH (10:45)
[2022-05-01] MEDS ORDERED: Potassium Chloride 20 MEQ in Premix Bag 1 BAG IVPB SCH (12:00)
[2022-05-01] MEDS ORDERED: Sodium Chloride 0.9% 1,000 ML IV SCH ×2 (12:00→14:45)
[2022-05-01] MEDS ORDERED: Loperamide HCl 2 MG CAP PO PRN (13:02)
[2022-05-01] MEDS ORDERED: Pepto Bismol Chew TAB PO PRN (13:04)
[2022-05-01] MEDS ORDERED: NS 0.9% w/ 20 MEQ KCL 1,000 ML/1,000 ML BAG IV SCH ×2 (14:45→16:45)
[2022-05-01 15:18] LABS: Anion Gap 18 mmol/L (10-20); BUN (Urea Nitrogen) 60 mg/dL (8.4-25.7); Calc. Creatinine Clearance 21 mL/min (70-130); Carbon Dioxide 16 mmol/L (23-31); Chloride 107 mmol/L (98-107); Estimated GFR 16; Glucose 97 mg/dL (83-110); Potassium 2.9 mmol/L (3.5-5.1); Sodium 138 mmol/L (136-145)
[2022-05-01 21:20] LABS: Anion Gap 14 mmol/L (10-20); BUN (Urea Nitrogen) 53 mg/dL (8.4-25.7); Calc. Creatinine Clearance 26 mL/min (70-130); Calcium 8.6 mg/dL (7.8-10.44); Carbon Dioxide 17 mmol/L (23-31); Chloride 110 mmol/L (98-107); Estimated GFR 20; Glucose 95 mg/dL (83-110); Magnesium 1.9 mg/dL (1.6-2.6); Potassium 3.3 mmol/L (3.5-5.1); Sodium 138 mmol/L (136-145)
[2022-05-01 22:03] LABS: Campy jejuni + coli by PCR Negative (Negative); STEC Shiga Toxin 1+2 Negative (Negative); Salmonella spp. by PCR Negative (Negative); Shigella spp + EIEC by PCR Negative (Negative)
[2022-05-01] MEDS: NS 0.9% w/ 20 MEQ KCL 1,000 ML/1,000 ML BAG IV SCH (22:20)
[2022-05-01] MEDS: Acetaminophen 325 MG TAB PO PRN (23:02)
[2022-05-01 23:50] LABS: Bilirubin Negative (Negative); Blood, Urine Negative (Negative); Clarity Clear (Clear); Glucose, Urine (Dipstick) Normal (Negative); Ketone, Urine Negative (Negative); Leukocyte 75 Leu/uL (Negative); Nitrite Negative (Negative); Protein, Urine (Dipstick) 10 mg/dL (Neg-Trace); Specific Gravity, Urine 1.016 (1.002-1.036); Urobilinogen Normal mg/dL (Less than 2); pH, Urine 5.5 (5.0-9.0)
[2022-05-02 00:02] LABS: Bacteria/HPF 1+ HPF (None Seen); RBC/HPF 0-3 HPF (0-3); WBC/HPF 0-3 HPF (0-3)
[2022-05-02] MEDS: NS 0.9% w/ 20 MEQ KCL 1,000 ML/1,000 ML BAG IV SCH (05:31)
[2022-05-02 05:47] LABS: #Eosinphils 0.2 thou/uL (0.0-0.7); #Lymphocytes 1.2 thou/uL (1.20-3.40); #Monocytes 0.7 thou/uL (0.11-0.59); #Neutrophils 7.2 thou/uL (1.40-6.50); %Basophils 0.2 % (0.0-1.0); %Eosinophils 2.6 % (0.0-10.0); %Lymphocytes 12.9 % (21.0-51.0); %Monocytes 7.7 % (0.0-10.0); %Neutrophils 76.6 % (42.0-75.0); Hemoglobin 10.6 g/dL (14.0-18.0); Mean Corpuscular HGB CONC 32.1 g/dL (32.0-36.0); Mean Corpuscular Volume 84.1 fl (78.0-98.0); Mean Platelet Volume 7.5 fL (7.4-10.4); Platelet Count 374 10x3/uL (130-400); RBC Distribution Width 15.6 % (11.5-14.5); Red Blood Cell (RBC) Count 3.93 mill/uL (4.70-6.10); White Blood Cell (WBC) Count 9.3 10x3/uL (4.8-10.8)
[2022-05-02 06:08] LABS: Anion Gap 12 mmol/L (10-20); BUN (Urea Nitrogen) 47 mg/dL (8.4-25.7); Calc. Creatinine Clearance 30 mL/min (70-130); Calcium 8.7 mg/dL (7.8-10.44); Carbon Dioxide 18 mmol/L (23-31); Chloride 113 mmol/L (98-107); Estimated GFR 24; Glucose 85 mg/dL (83-110); Magnesium 1.9 mg/dL (1.6-2.6); Potassium 3.5 mmol/L (3.5-5.1); Sodium 139 mmol/L (136-145)
[2022-05-02] MEDS ORDERED: Sodium Chloride 0.9% 1,000 ML IV SCH (07:15)
[2022-05-02] MEDS: Famotidine 20 MG TAB PO SCH (09:09)
[2022-05-02] MEDS: Potassium Chloride 20 MEQ TAB PO SCH (09:09)
[2022-05-02] MEDS: Heparin 5,000 UNITS/ML VIAL SC SCH ×3 (09:09→20:17)
[2022-05-02] MEDS: Acetaminophen 325 MG TAB PO PRN (10:31)
[2022-05-02 15:29] LABS: Anion Gap 13 mmol/L (10-20); BUN (Urea Nitrogen) 42 mg/dL (8.4-25.7); Calc. Creatinine Clearance 38 mL/min (70-130); Calcium 8.7 mg/dL (7.8-10.44); Carbon Dioxide 17 mmol/L (23-31); Chloride 113 mmol/L (98-107); Estimated GFR 32; Glucose 97 mg/dL (83-110); Magnesium 1.8 mg/dL (1.6-2.6); Potassium 3.5 mmol/L (3.5-5.1); Sodium 139 mmol/L (136-145)
[2022-05-02] MEDS ORDERED: Potassium Chloride 20 MEQ TAB PO SCH (16:15)
[2022-05-02] MEDS: Magnesium Oxide 400 MG TAB PO SCH (20:17)
[2022-05-03 05:50] LABS: #Eosinphils 0.2 thou/uL (0.0-0.7); #Lymphocytes 1.2 thou/uL (1.20-3.40); #Monocytes 0.6 thou/uL (0.11-0.59); #Neutrophils 5.1 thou/uL (1.40-6.50); %Basophils 0.1 % (0.0-1.0); %Eosinophils 3.1 % (0.0-10.0); %Lymphocytes 17.2 % (21.0-51.0); %Monocytes 8.5 % (0.0-10.0); Hemoglobin 10.7 g/dL (14.0-18.0); Mean Corpuscular HGB CONC 31.8 g/dL (32.0-36.0); Mean Corpuscular Hemoglobin 26.6 pg (27.0-31.0); Mean Corpuscular Volume 83.5 fl (78.0-98.0); Mean Platelet Volume 7.1 fL (7.4-10.4); Platelet Count 402 10x3/uL (130-400); RBC Distribution Width 15.4 % (11.5-14.5); Red Blood Cell (RBC) Count 4.04 mill/uL (4.70-6.10); White Blood Cell (WBC) Count 7.2 10x3/uL (4.8-10.8)
[2022-05-03 06:18] LABS: Anion Gap 14 mmol/L (10-20); BUN (Urea Nitrogen) 35 mg/dL (8.4-25.7); Calc. Creatinine Clearance 44 mL/min (70-130); Calcium 8.9 mg/dL (7.8-10.44); Carbon Dioxide 16 mmol/L (23-31); Estimated GFR 38; Glucose 106 mg/dL (83-110); Magnesium 1.8 mg/dL (1.6-2.6)
[2022-05-03 06:45] LABS: Chloride 116 mmol/L (98-107); Potassium 3.2 mmol/L (3.5-5.1); Sodium 143 mmol/L (136-145)
[2022-05-03] MEDS: Potassium Chloride 20 MEQ TAB PO SCH (08:59)
[2022-05-03] MEDS: Heparin 5,000 UNITS/ML VIAL SC SCH ×2 (08:59→15:51)
[2022-05-03] MEDS: Magnesium Oxide 400 MG TAB PO SCH (08:59)
[2022-05-03] MEDS: Famotidine 20 MG TAB PO SCH (08:59)
[2022-05-03] MEDS ORDERED: Magnesium 2 GM/50 ML(in water) 1 GM in Premix Bag 1 BAG IVPB SCH (10:45)
[2022-05-03 16:15] VITALS: BP 154/65; TEMP 97.8
== END 2022-05-03 17:25 | disposition home or self-care (01) | DRG 682 ==
LOC: ERS 15:20 → NEURO 18:34
PROVIDERS: ADMIT Family Medicine; ATTEND Family Medicine
DX: N17.9 Acute kidney failure, unspecified (principal); I21.A1 Myocardial infarction type 2; I12.0 Hypertensive chronic kidney disease with stage 5 chronic kidney disease or end stage renal disease; N39.0 Urinary tract infection, site not specified; E87.20 Acidosis, unspecified; E86.0 Dehydration; N18.5 Chronic kidney disease, stage 5; K52.9 Noninfective gastroenteritis and colitis, unspecified; J44.9 Chronic obstructive pulmonary disease, unspecified; Z20.822 Contact with and (suspected) exposure to COVID-19; E87.6 Hypokalemia; L89.151 Pressure ulcer of sacral region, stage 1; D75.839 Thrombocytosis, unspecified; D63.1 Anemia in chronic kidney disease; Z88.5 Allergy status to narcotic agent; Z79.01 Long term (current) use of anticoagulants; Z79.899 Other long term (current) drug therapy; Z90.49 Acquired absence of other specified parts of digestive tract
CPT/HCPCS: 36415; 71045; 72100; 74177; 80048; 80053; 81001; 81003; 81015; 82553; 83605; 83630; 83690; 83735; 84484; 85025; 87040; 87086; 87205; 87324; 87449; 87505; 93005; 93010; 93306; J0696; J1160; J1644; J3475; J3480; J3490; J7050; J7120; Q9967; U0003; U0005

== ENCOUNTER 2022-08-28 18:51 | Inpatient (IN) | payer OTHER ==
[2022-08-28] MEDS ORDERED: Labetalol HCl 100 MG/20 ML VIAL ONE (19:18)
[2022-08-28] MEDS ORDERED: Nitroglycerin 2% Ointment 1 INCH/1 GM Packet ONE (19:18)
[2022-08-28 19:30] LABS: #Eosinphils 0.2 thou/uL (0.0-0.7); #Lymphocytes 1.2 thou/uL (1.20-3.40); #Monocytes 0.5 thou/uL (0.11-0.59); #Neutrophils 5.2 thou/uL (1.40-6.50); %Basophils 0.3 % (0.0-1.0); %Lymphocytes 16.8 % (21.0-51.0); %Monocytes 6.6 % (0.0-10.0); %Neutrophils 73.3 % (42.0-75.0); Hemoglobin 14.2 g/dL (14.0-18.0); Mean Corpuscular HGB CONC 32.1 g/dL (32.0-36.0); Mean Corpuscular Hemoglobin 26.3 pg (27.0-31.0); Mean Corpuscular Volume 82.1 fl (78.0-98.0); Mean Platelet Volume 7.7 fL (7.4-10.4); Platelet Count 254 10x3/uL (130-400); RBC Distribution Width 16.3 % (11.5-14.5); Red Blood Cell (RBC) Count 5.37 mill/uL (4.70-6.10)
[2022-08-28] MEDS ORDERED: hydrALAZINE 20 MG/ML VIAL ONE ×2 (19:44→20:22)
[2022-08-28 19:45] LABS: PTT 32.3 sec (22.9-36.1); Prothrombin Time 13.8 sec (12.0-14.7)
[2022-08-28 19:58] LABS: ALT (SGPT) 15 U/L (8-55); AST (SGOT) 17 U/L (5-34); Albumin 4.1 g/dL (3.4-4.8); Alkaline Phosphatase 88 U/L (40-110); Anion Gap 14 mmol/L (10-20); BUN (Urea Nitrogen) 20 mg/dL (8.4-25.7); Bilirubin, Total 0.3 mg/dL (0.2-1.2); Calc. Creatinine Clearance 0 mL/min (70-130); Carbon Dioxide 26 mmol/L (23-31); Chloride 105 mmol/L (98-107); Estimated GFR 35; Globulin 3.7 g/dL (2.4-3.5); Glucose 122 mg/dL (83-110); Potassium 4.3 mmol/L (3.5-5.1); Protein, Total 7.8 g/dL (5.8-8.1); Sodium 141 mmol/L (136-145)
[2022-08-28] MEDS ORDERED: Ondansetron ODT 4 MG TAB PO PRN (20:56)
[2022-08-28] MEDS ORDERED: Acetaminophen 500 MG TAB PO PRN (20:56)
[2022-08-28] MEDS ORDERED: Ondansetron PF 4 MG/2 ML Vial ONE (21:05)
[2022-08-28] MEDS ORDERED: niCARdipine 40MG In NaCl 40 MG/200 ML BAG IVPB SCH (21:15)
[2022-08-28] MEDS ORDERED: niCARdipine 50 MG in Sodium Chloride 0.9% 250 ML 230 ML IV SCH (21:30)
[2022-08-28] MEDS ORDERED: niCARdipine 25 MG/10 ML SDV ONE (21:49)
[2022-08-28] MEDS ORDERED: Lisinopril 10 MG TAB ONE (22:26)
[2022-08-28] MEDS ORDERED: hydrALAZINE 25 MG TAB ONE (22:26)
[2022-08-28] MEDS ORDERED: hydrALAZINE 25 MG TAB PO SCH (22:30)
[2022-08-28] MEDS ORDERED: Lisinopril 10 MG TAB PO SCH (22:30)
[2022-08-28 23:20] VITALS: BMI 31.3
[2022-08-28 23:47] LABS: Troponin I 0.028 ng/mL (< 0.028)
[2022-08-29] MEDS: Famotidine 20 MG TAB PO SCH ×2 (00:44→20:40)
[2022-08-29 06:04] LABS: Anion Gap 14 mmol/L (10-20); BUN (Urea Nitrogen) 41 mg/dL (8.4-25.7); Calc. Creatinine Clearance 37 mL/min (70-130); Calcium 9.1 mg/dL (7.8-10.44); Carbon Dioxide 28 mmol/L (23-31); Chloride 101 mmol/L (98-107); Estimated GFR 28; Glucose 285 mg/dL (83-110); Potassium 4.8 mmol/L (3.5-5.1); Sodium 138 mmol/L (136-145)
[2022-08-29 08:08] LABS: #Eosinphils 0.1 thou/uL (0.0-0.7); #Lymphocytes 1.5 thou/uL (1.20-3.40); #Monocytes 0.7 thou/uL (0.11-0.59); #Neutrophils 5.1 thou/uL (1.40-6.50); %Basophils 0.3 % (0.0-1.0); %Eosinophils 0.9 % (0.0-10.0); %Lymphocytes 20.1 % (21.0-51.0); %Monocytes 8.9 % (0.0-10.0); %Neutrophils 69.8 % (42.0-75.0); Hemoglobin 13.5 g/dL (14.0-18.0); Mean Corpuscular HGB CONC 30.3 g/dL (32.0-36.0); Mean Corpuscular Hemoglobin 25.3 pg (27.0-31.0); Mean Corpuscular Volume 83.3 fl (78.0-98.0); Platelet Count 241 10x3/uL (130-400); RBC Distribution Width 16.6 % (11.5-14.5); Red Blood Cell (RBC) Count 5.35 mill/uL (4.70-6.10); White Blood Cell (WBC) Count 7.4 10x3/uL (4.8-10.8)
[2022-08-29] MEDS ORDERED: Hydrochlorothiazide 25 MG TAB PO SCH (09:00)
[2022-08-29] MEDS ORDERED: Lisinopril 10 MG TAB PO SCH (09:00)
[2022-08-29] MEDS ORDERED: Nitroglycerin 0.4 MG TAB (25 Tab Bottle) SL PRN (09:00)
[2022-08-29] MEDS ORDERED: Nitroglycerin 0.4 MG TAB (25 Tab Bottle) SL SCH (09:15)
[2022-08-29] MEDS: hydrALAZINE 25 MG TAB PO SCH ×3 (09:46→20:40)
[2022-08-29] MEDS ORDERED: Aspirin Chewable 81 MG TAB PO STA (09:47)
[2022-08-29] MEDS: Amlodipine 10 MG TAB PO SCH (09:48)
[2022-08-29] MEDS ORDERED: Aspirin 325 MG TAB ONE (09:57)
[2022-08-29 10:14] LABS: Troponin I 0.198 ng/mL (< 0.028)
[2022-08-29] MEDS ORDERED: HumaLOG 300 UNITS/3 ML VIAL SC PRN (10:49)
[2022-08-29] MEDS ORDERED: Dextrose 50% Abboject 50 ML SYRINGE SLOW IVP PRN (10:49)
[2022-08-29] MEDS ORDERED: Dextrose 5% in Water 1,000 ML IV PRN (10:49)
[2022-08-29 11:15] LABS: Hemoglobin A1c 5.2 % (4.0-6.0)
[2022-08-29 17:48] LABS: Troponin I 0.199 ng/mL (< 0.028)
[2022-08-29] MEDS ORDERED: Ipratropium/Albuterol 3 ML NEB NEB PRN (18:11)
[2022-08-30 04:52] LABS: #Eosinphils 0.2 thou/uL (0.0-0.7); #Lymphocytes 1.4 thou/uL (1.20-3.40); #Monocytes 0.6 thou/uL (0.11-0.59); #Neutrophils 4.6 thou/uL (1.40-6.50); %Basophils 0.1 % (0.0-1.0); %Eosinophils 2.6 % (0.0-10.0); %Lymphocytes 20.8 % (21.0-51.0); %Monocytes 8.3 % (0.0-10.0); %Neutrophils 68.2 % (42.0-75.0); Hemoglobin 12.8 g/dL (14.0-18.0); Mean Corpuscular Hemoglobin 25.8 pg (27.0-31.0); Mean Corpuscular Volume 83.2 fl (78.0-98.0); Platelet Count 226 10x3/uL (130-400); RBC Distribution Width 16.5 % (11.5-14.5); Red Blood Cell (RBC) Count 4.96 mill/uL (4.70-6.10); White Blood Cell (WBC) Count 6.8 10x3/uL (4.8-10.8)
[2022-08-30 05:17] LABS: Anion Gap 12 mmol/L (10-20); BUN (Urea Nitrogen) 19 mg/dL (8.4-25.7); Calc. Creatinine Clearance 50 mL/min (70-130); Calcium 9.1 mg/dL (7.8-10.44); Carbon Dioxide 26 mmol/L (23-31); Chloride 105 mmol/L (98-107); Estimated GFR 39; Glucose 85 mg/dL (83-110); Potassium 4.3 mmol/L (3.5-5.1); Sodium 139 mmol/L (136-145)
[2022-08-30] MEDS ORDERED: Lisinopril 10 MG TAB PO SCH (09:00)
[2022-08-30] MEDS: hydrALAZINE 25 MG TAB PO SCH ×3 (10:01→21:14)
[2022-08-30] MEDS: Amlodipine 10 MG TAB PO SCH (10:01)
[2022-08-30] MEDS ORDERED: Hydrochlorothiazide 25 MG TAB PO SCH (12:00)
[2022-08-30] MEDS ORDERED: Mometasone 200 MCG/Formoterol 5 MCG 120 PUFF INHALER INH SCH ×2 (12:12→12:15)
[2022-08-30] MEDS ORDERED: Ipratropium Bromide 2.5 ml Neb NEB PRN (12:20)
[2022-08-30] MEDS: Ipratropium Bromide 2.5 ml Neb NEB SCH ×2 (14:15→18:42)
[2022-08-30] MEDS ORDERED: Ipratropium/Albuterol 3 ML NEB NEB SCH (14:30)
[2022-08-30] MEDS ORDERED: Mometasone 100 MCG/Formoterol 5 MCG 120 PUFF INHALER INH SCH (18:30)
[2022-08-30] MEDS: Mometasone 200 MCG/Formoterol 5 MCG 120 PUFF INHALER INH SCH (18:42)
[2022-08-30] MEDS: Famotidine 20 MG TAB PO SCH (21:14)
[2022-08-31] MEDS: Ipratropium Bromide 2.5 ml Neb NEB SCH ×2 (01:34→07:15)
[2022-08-31 05:11] LABS: #Eosinphils 0.2 thou/uL (0.0-0.7); #Lymphocytes 1.2 thou/uL (1.20-3.40); #Monocytes 0.6 thou/uL (0.11-0.59); #Neutrophils 4.3 thou/uL (1.40-6.50); %Basophils 0.8 % (0.0-1.0); %Eosinophils 3.2 % (0.0-10.0); %Lymphocytes 19.1 % (21.0-51.0); %Monocytes 9.7 % (0.0-10.0); %Neutrophils 67.2 % (42.0-75.0); Hemoglobin 14.1 g/dL (14.0-18.0); Mean Corpuscular HGB CONC 31.7 g/dL (32.0-36.0); Mean Corpuscular Hemoglobin 26.1 pg (27.0-31.0); Mean Corpuscular Volume 82.4 fl (78.0-98.0); Mean Platelet Volume 7.9 fL (7.4-10.4); Platelet Count 243 10x3/uL (130-400); RBC Distribution Width 16.4 % (11.5-14.5); White Blood Cell (WBC) Count 6.4 10x3/uL (4.8-10.8)
[2022-08-31 05:28] LABS: Anion Gap 14 mmol/L (10-20); BUN (Urea Nitrogen) 21 mg/dL (8.4-25.7); Calc. Creatinine Clearance 53 mL/min (70-130); Calcium 9.8 mg/dL (7.8-10.44); Carbon Dioxide 24 mmol/L (23-31); Chloride 103 mmol/L (98-107); Estimated GFR 42; Glucose 93 mg/dL (83-110); Potassium 4.1 mmol/L (3.5-5.1); Sodium 137 mmol/L (136-145)
[2022-08-31] MEDS ORDERED: Lisinopril 10 MG TAB PO SCH (06:47)
[2022-08-31] MEDS: Mometasone 200 MCG/Formoterol 5 MCG 120 PUFF INHALER INH SCH ×2 (07:15→18:36)
[2022-08-31] MEDS ORDERED: Hydrochlorothiazide 25 MG TAB PO SCH (09:00)
[2022-08-31] MEDS ORDERED: Lisinopril 20 MG TAB PO SCH (09:00)
[2022-08-31] MEDS: Amlodipine 10 MG TAB PO SCH (09:45)
[2022-08-31] MEDS: hydrALAZINE 25 MG TAB PO SCH ×2 (09:45→16:35)
[2022-08-31] MEDS: Ipratropium/Albuterol 3 ML NEB NEB SCH ×2 (13:52→18:36)
[2022-08-31 16:24] VITALS: TEMP 98
[2022-08-31 19:38] VITALS: BP 164/82
== END 2022-08-31 18:55 | disposition home or self-care (01) | DRG 305 ==
LOC: ERS 18:51 → ERHOLD 20:44 → 2NO 23:08 → OBSVTOIN 08-31 05:40
PROVIDERS: ADMIT Emergency Medicine; ATTEND Emergency Medicine
PROC: 0HQDXZZ Repair Right Lower Arm Skin, External Approach (ICD-10-PCS; principal; 2022-08-31)
DX: I16.1 Hypertensive emergency (principal); I50.32 Chronic diastolic (congestive) heart failure; N17.9 Acute kidney failure, unspecified; J98.11 Atelectasis; J44.1 Chronic obstructive pulmonary disease with (acute) exacerbation; R73.03 Prediabetes; N18.30 Chronic kidney disease, stage 3 unspecified; I48.0 Paroxysmal atrial fibrillation; S61.511A Laceration without foreign body of right wrist, initial encounter; I13.0 Hypertensive heart and chronic kidney disease with heart failure and stage 1 through stage 4 chronic kidney disease, or unspecified chronic kidney disease; W19.XXXA Unspecified fall, initial encounter; Y92.9 Unspecified place or not applicable; Z88.5 Allergy status to narcotic agent; Z79.899 Other long term (current) drug therapy; Z86.73 Personal history of transient ischemic attack (TIA), and cerebral infarction without residual deficits; Z86.718 Personal history of other venous thrombosis and embolism; Z90.49 Acquired absence of other specified parts of digestive tract; Z98.890 Other specified postprocedural states; Z87.891 Personal history of nicotine dependence
CPT/HCPCS: 36415; 36416; 70450; 71045; 80048; 80053; 83036; 83880; 84484; 85025; 85610; 85730; 93005; 93010; 96374; 96375; 96376; J0360; J1650; J2405

== ENCOUNTER 2023-03-09 15:39 | Emergency (ER) | payer OTHER ==
[2023-03-09 17:24] LABS: #Eosinphils 0.2 thou/uL (0.0-0.7); #Monocytes 0.5 thou/uL (0.11-0.59); #Neutrophils 5.8 thou/uL (1.40-6.50); %Basophils 0.5 % (0.0-1.0); %Eosinophils 2.3 % (0.0-10.0); %Monocytes 6.3 % (0.0-10.0); %Neutrophils 78.5 % (42.0-75.0); Hematocrit 49.9 % (42.0-52.0); Hemoglobin 15.3 g/dL (14.0-18.0); Mean Corpuscular HGB CONC 30.7 g/dL (32.0-36.0); Mean Corpuscular Hemoglobin 24.7 pg (27.0-31.0); Mean Corpuscular Volume 80.6 fl (78.0-98.0); Platelet Count 270 10x3/uL (130-400); RBC Distribution Width 18.8 % (11.5-14.5); Red Blood Cell (RBC) Count 6.19 mill/uL (4.70-6.10); White Blood Cell (WBC) Count 7.4 10x3/uL (4.8-10.8)
[2023-03-09] MEDS ORDERED: Amlodipine 5 MG TAB ONE (17:25)
[2023-03-09] MEDS ORDERED: hydrALAZINE 10 MG TAB ONE (17:26)
[2023-03-09 17:52] LABS: ALT (SGPT) 26 U/L (8-55); AST (SGOT) 19 U/L (5-34); Albumin 4.4 g/dL (3.4-4.8); Alkaline Phosphatase 86 U/L (40-110); Anion Gap 14 mmol/L (10-20); BUN (Urea Nitrogen) 21 mg/dL (8.4-25.7); Bilirubin, Total 0.2 mg/dL (0.2-1.2); Calc. Creatinine Clearance 0 mL/min (70-130); Calcium 9.7 mg/dL (7.8-10.44); Carbon Dioxide 27 mmol/L (23-31); Chloride 100 mmol/L (98-107); Estimated GFR 39; Globulin 3.4 g/dL (2.4-3.5); Glucose 110 mg/dL (83-110); Magnesium 2.2 mg/dL (1.6-2.6); Potassium 4.4 mmol/L (3.5-5.1); Protein, Total 7.8 g/dL (5.8-8.1); Sodium 137 mmol/L (136-145)
[2023-03-09 17:56] LABS: Troponin I 0.028 ng/mL (< 0.028)
[2023-03-09 18:55] LABS: Bacteria/HPF None Seen HPF (None Seen); Bilirubin Negative (Negative); Blood, Urine Trace (Negative); CAUTI Indications for Culture Dysuria,urgency,freq; Clarity Turbid (Clear); Glucose, Urine (Dipstick) Normal (Negative); Ketone, Urine Negative (Negative); Leukocyte 500 Leu/uL (Negative); Nitrite Negative (Negative); Protein, Urine (Dipstick) 300 mg/dL (Neg-Trace); Squamous Epithelial 0-3 HPF (0-3); Urobilinogen Normal mg/dL (Less than 2); WBC/HPF Greater than 50 HPF (0-3); Yeast-Budding 1+ HPF (None Seen); pH, Urine 7.5 (5.0-9.0)
[2023-03-09 19:16] LABS: Urine Culture Reflex Yes Yes
== END 2023-03-09 19:48 | disposition home or self-care (01) ==
LOC: ERS 15:39
DX: I10 Essential (primary) hypertension (principal); B37.9 Candidiasis, unspecified; J44.9 Chronic obstructive pulmonary disease, unspecified; Z87.891 Personal history of nicotine dependence; Z79.899 Other long term (current) drug therapy
CPT/HCPCS: 71045; 80053; 81001; 83735; 83880; 84484; 85025; 87086; 93005

== ENCOUNTER 2023-03-30 08:14 | Inpatient (IN) | payer OTHER ==
[2023-03-30] MEDS ORDERED: Pantoprazole 40 MG VIAL ONE (08:33)
[2023-03-30] MEDS ORDERED: fentaNYL 50 mcg/mL 1 mL Vial ONE (08:33)
[2023-03-30 09:00] LABS: #Basophils 0.1 thou/uL (0.0-0.2); #Neutrophils 18.5 thou/uL (1.40-6.50); %Basophils 0.3 % (0.0-1.0); %Lymphocytes 6.5 % (21.0-51.0); %Monocytes 4.7 % (0.0-10.0); %Neutrophils 87.8 % (42.0-75.0); Hemoglobin 15.6 g/dL (14.0-18.0); Mean Corpuscular HGB CONC 29.4 g/dL (32.0-36.0); Mean Corpuscular Hemoglobin 24.8 pg (27.0-31.0); Mean Corpuscular Volume 84.4 fl (78.0-98.0); Mean Platelet Volume 9.5 fL (7.4-10.4); Platelet Count 283 10x3/uL (130-400); RBC Distribution Width 19.9 % (11.5-14.5); Red Blood Cell (RBC) Count 6.28 mill/uL (4.70-6.10); White Blood Cell (WBC) Count 21.1 10x3/uL (4.8-10.8)
[2023-03-30 09:24] LABS: ALT (SGPT) 17 U/L (8-55); AST (SGOT) 21 U/L (5-34); Albumin 4.2 g/dL (3.4-4.8); Alkaline Phosphatase 81 U/L (40-110); Anion Gap 22 mmol/L (10-20); BUN (Urea Nitrogen) 30 mg/dL (8.4-25.7); Bilirubin, Total 0.6 mg/dL (0.2-1.2); CK (CPK) 46 U/L (30-200); Calc. Creatinine Clearance 0 mL/min (70-130); Carbon Dioxide 25 mmol/L (23-31); Chloride 100 mmol/L (98-107); Estimated GFR 25; Globulin 3.8 g/dL (2.4-3.5); Glucose 228 mg/dL (83-110); Lipase 79 U/L (8-78); Potassium 3.7 mmol/L (3.5-5.1); Sodium 143 mmol/L (136-145)
[2023-03-30] MEDS ORDERED: Sodium Chloride 0.9% 100 ML ONE ×2 (09:28→14:07)
[2023-03-30] MEDS ORDERED: Piperacillin/Tazobactam 4.5 GM VIAL ONE (09:28)
[2023-03-30 09:33] LABS: Troponin I 0.017 ng/mL (< 0.028)
[2023-03-30 09:40] LABS: Actual Bicarbonate (HCO3v) 20.5 mEq/L (22-28); Base Excess -3.8 mEq/L (-2.0 to +3.0); Calcium, Ionized (venous) 0.87 mmol/L (1.16-1.32); Chloride (VBG) 103 mmol/L (98-106); Hematocrit-VBG 49 % (42.0-52.0); Hemoglobin (Hb) 16.8 g/dL (12.6-17.4); Sodium 135 mmol/L (133-146); pH (venous) 7.378 (7.32-7.43)
[2023-03-30 10:21] LABS: Bacteria/HPF 3+ HPF (None Seen); Bilirubin Negative (Negative); Blood, Urine Trace (Negative); CAUTI Indications for Culture Dysuria,urgency,freq; Clarity Turbid (Clear); Glucose, Urine (Dipstick) Normal (Negative); Ketone, Urine Trace mg/dL (Negative); Leukocyte 500 Leu/uL (Negative); Nitrite 2+ (Negative); Protein, Urine (Dipstick) 200 mg/dL (Neg-Trace); Specific Gravity, Urine 1.018 (1.002-1.036); Squamous Epithelial 0-3 HPF (0-3); Urobilinogen Normal mg/dL (Less than 2); WBC/HPF Greater than 50 HPF (0-3)
[2023-03-30 10:24] LABS: Urine Culture Reflex Yes Yes
[2023-03-30] MEDS ORDERED: Labetalol HCl 100 MG/20 ML VIAL ONE (11:26)
[2023-03-30] MEDS ORDERED: Acetaminophen 650 MG Suppository PR PRN (11:29)
[2023-03-30] MEDS ORDERED: Dextrose 50% Abboject 50 ML SYRINGE SLOW IVP PRN (11:29)
[2023-03-30] MEDS ORDERED: Glucagon 1 MG/ML KIT IM PRN (11:29)
[2023-03-30] MEDS ORDERED: Acetaminophen 325 MG TAB PO PRN (11:29)
[2023-03-30] MEDS ORDERED: Dextrose 5% in Water 1,000 ML IV PRN (11:29)
[2023-03-30] MEDS ORDERED: Ondansetron ODT 4 MG TAB PO PRN (11:29)
[2023-03-30] MEDS ORDERED: Piperacillin/Tazobactam 3.375 GM in Sodium Chloride 0.9% 100 ML IVPB SCH ×2 (12:00→14:00)
[2023-03-30] MEDS ORDERED: hydrALAZINE 20 MG/ML VIAL SLOW IVP SCH (12:15)
[2023-03-30 12:17] LABS: Troponin I 0.019 ng/mL (< 0.028)
[2023-03-30] MEDS ORDERED: hydrALAZINE 20 MG/ML VIAL ONE (12:19)
[2023-03-30 12:25] LABS: Hemoglobin A1c 6.1 % (4.0-6.0)
[2023-03-30] MEDS: Lactated Ringer's 1,000 ML IV SCH (12:40)
[2023-03-30] MEDS ORDERED: cefTRIAXone (ROCEPHIN) 1 GM VIAL ONE (14:08)
[2023-03-30] MEDS: cefTRIAXone\\ROCEPHIN 1 GM in Sodium Chloride 0.9% 100 ML IVPB SCH (14:12)
[2023-03-30 15:18] LABS: Troponin I 0.032 ng/mL (< 0.028)
[2023-03-30] MEDS: hydrALAZINE 20 MG/ML VIAL SLOW IVP PRN (19:46)
[2023-03-30 20:47] LABS: ALT (SGPT) 14 U/L (8-55); AST (SGOT) 19 U/L (5-34); Albumin 3.6 g/dL (3.4-4.8); Alkaline Phosphatase 60 U/L (40-110); Anion Gap 17 mmol/L (10-20); BUN (Urea Nitrogen) 29 mg/dL (8.4-25.7); Bilirubin, Total 0.5 mg/dL (0.2-1.2); Calc. Creatinine Clearance 47 mL/min (70-130); Calcium 8.9 mg/dL (7.8-10.44); Carbon Dioxide 23 mmol/L (23-31); Chloride 106 mmol/L (98-107); Estimated GFR 36; Globulin 3.5 g/dL (2.4-3.5); Glucose 155 mg/dL (83-110); Phosphorus 3.2 mg/dL (2.3-4.7); Potassium 4.2 mmol/L (3.5-5.1); Protein, Total 7.1 g/dL (5.8-8.1); Sodium 142 mmol/L (136-145)
[2023-03-30 20:51] LABS: Troponin I 0.042 ng/mL (< 0.028)
[2023-03-30] MEDS: Heparin 5,000 UNITS/ML VIAL SC SCH ×2 (21:34→22:09)
[2023-03-30] MEDS: DOBUTamine 500 mg/250 ml 250 ML IVPB SCH (22:55)
[2023-03-31] MEDS ORDERED: Metoclopramide HCl 10 MG/2 ML VIAL IVP SCH (01:00)
[2023-03-31] MEDS: Lactated Ringer's 1,000 ML IV SCH (01:04)
[2023-03-31 04:12] LABS: #Basophils 0.1 thou/uL (0.0-0.2); #Eosinphils 0.1 thou/uL (0.0-0.7); #Monocytes 1.1 thou/uL (0.11-0.59); #Neutrophils 14.8 thou/uL (1.40-6.50); %Basophils 0.3 % (0.0-1.0); %Eosinophils 0.4 % (0.0-10.0); %Lymphocytes 4.7 % (21.0-51.0); %Monocytes 6.5 % (0.0-10.0); %Neutrophils 87.5 % (42.0-75.0); Hematocrit 48.5 % (42.0-52.0); Hemoglobin 14.6 g/dL (14.0-18.0); Mean Corpuscular HGB CONC 30.1 g/dL (32.0-36.0); Mean Corpuscular Hemoglobin 24.6 pg (27.0-31.0); Platelet Count 235 10x3/uL (130-400); RBC Distribution Width 19.7 % (11.5-14.5); Red Blood Cell (RBC) Count 5.93 mill/uL (4.70-6.10)
[2023-03-31 04:14] LABS: Mean Corpuscular Volume 81.8 fl (78.0-98.0)
[2023-03-31 04:28] LABS: Lactic Acid 1.9 mmol/L (0.5-2.2)
[2023-03-31 04:56] LABS: ALT (SGPT) 12 U/L (8-55); AST (SGOT) 15 U/L (5-34); Albumin 3.2 g/dL (3.4-4.8); Alkaline Phosphatase 60 U/L (40-110); Anion Gap 16 mmol/L (10-20); BUN (Urea Nitrogen) 26 mg/dL (8.4-25.7); Bilirubin, Total 0.5 mg/dL (0.2-1.2); Calc. Creatinine Clearance 47 mL/min (70-130); Calcium 8.9 mg/dL (7.8-10.44); Carbon Dioxide 25 mmol/L (23-31); Chloride 105 mmol/L (98-107); Estimated GFR 37; Globulin 3.5 g/dL (2.4-3.5); Glucose 119 mg/dL (83-110); Potassium 3.7 mmol/L (3.5-5.1); Protein, Total 6.7 g/dL (5.8-8.1); Sodium 142 mmol/L (136-145)
[2023-03-31] MEDS: hydrALAZINE 20 MG/ML VIAL SLOW IVP PRN (05:20)
[2023-03-31] MEDS: Heparin 5,000 UNITS/ML VIAL SC SCH ×3 (08:38→20:47)
[2023-03-31] MEDS ORDERED: Ondansetron ODT 4 MG TAB PO PRN (08:57)
[2023-03-31] MEDS ORDERED: Sodium Chloride 0.9% 1,000 ML IV SCH (09:00)
[2023-03-31] MEDS ORDERED: Amlodipine 5 MG TAB PO SCH (09:00)
[2023-03-31] MEDS ORDERED: Metoclopramide HCl 10 MG/2 ML VIAL IVP PRN (09:00)
[2023-03-31] MEDS ORDERED: Lisinopril 20 MG TAB PO SCH (09:45)
[2023-03-31] MEDS ORDERED: Hydrochlorothiazide 25 MG TAB PO SCH (09:45)
[2023-03-31] MEDS ORDERED: Lisinopril 10 MG TAB PO SCH (09:45)
[2023-03-31] MEDS: Scopolamine 1 mg/72 hour Patch TD SCH (10:07)
[2023-03-31] MEDS: cefTRIAXone\\ROCEPHIN 1 GM in Sodium Chloride 0.9% 100 ML IVPB SCH (13:43)
[2023-03-31] MEDS: Ondansetron PF 4 MG/2 ML Vial IVP PRN (20:47)
[2023-04-01 01:07] LABS: Troponin I 0.534 ng/mL (< 0.028)
[2023-04-01] MEDS: Ondansetron PF 4 MG/2 ML Vial IVP PRN (05:20)
[2023-04-01 05:49] LABS: Hematocrit 46.4 % (42.0-52.0); Mean Corpuscular HGB CONC 30.2 g/dL (32.0-36.0); Mean Corpuscular Hemoglobin 24.3 pg (27.0-31.0); Mean Corpuscular Volume 80.7 fl (78.0-98.0); Mean Platelet Volume 9.4 fL (7.4-10.4); Platelet Count 266 10x3/uL (130-400); Red Blood Cell (RBC) Count 5.75 mill/uL (4.70-6.10); White Blood Cell (WBC) Count 20.8 10x3/uL (4.8-10.8)
[2023-04-01 06:02] LABS: ALT (SGPT) 10 U/L (8-55); AST (SGOT) 11 U/L (5-34); Albumin 3.5 g/dL (3.4-4.8); Alkaline Phosphatase 57 U/L (40-110); Anion Gap 14 mmol/L (10-20); BUN (Urea Nitrogen) 25 mg/dL (8.4-25.7); Bilirubin, Total 0.5 mg/dL (0.2-1.2); Calc. Creatinine Clearance 47 mL/min (70-130); Calcium 9.5 mg/dL (7.8-10.44); Carbon Dioxide 26 mmol/L (23-31); Chloride 104 mmol/L (98-107); Estimated GFR 38; Globulin 3.5 g/dL (2.4-3.5); Glucose 114 mg/dL (83-110); Potassium 3.3 mmol/L (3.5-5.1); Sodium 141 mmol/L (136-145)
[2023-04-01 06:05] LABS: Delete Auto Diff?? YES; Manual Diff?? YES
[2023-04-01 06:10] LABS: Critical Call Chem Troponin I RESULT DECREASING; Troponin I 0.493 ng/mL (< 0.028)
[2023-04-01 06:34] LABS: Anisocytosis MODERATE=16-30 cells HPF (0-5); Band 4 % (5-11); Burr Cells SLIGHT = 2-5 cells HPF (0-1); CellaVision Operator ID lab.sh2; Lymphocytes 1 % (21-51); Macrocytosis SLIGHT = 6-15 cells HPF (0-5); Monocytes 4 % (0-10); Neutrophil 91 % (42-75); Ovalocytes MODERATE= 6-15 cells HPF (0-1); Platelet Adequacy Comment Platelets Normal; Polychromasia SLIGHT = 2-3 cells HPF (0-2); Smudge Cells 7.1 %; Total Cell Count 99; Vacuoles SLIGHT
[2023-04-01] MEDS: Sodium Chloride 0.9% 1,000 ML IV SCH ×2 (08:45→17:30)
[2023-04-01] MEDS: Heparin 5,000 UNITS/ML VIAL SC SCH ×3 (08:45→22:31)
[2023-04-01] MEDS: Potassium Chloride 20 MEQ in Premix 1 BAG IVPB SCH ×2 (08:58→11:57)
[2023-04-01] MEDS ORDERED: Lisinopril 20 MG TAB PO SCH (09:00)
[2023-04-01] MEDS ORDERED: Hydrochlorothiazide 25 MG TAB PO SCH (09:00)
[2023-04-01 09:18] LABS: Bacteria/HPF 2+ HPF (None Seen); Bilirubin Negative (Negative); Blood, Urine 1+ (Negative); CAUTI Indications for Culture Dysuria,urgency,freq; Clarity Turbid (Clear); Glucose, Urine (Dipstick) Normal (Negative); Ketone, Urine Trace mg/dL (Negative); Leukocyte 500 Leu/uL (Negative); Nitrite Negative (Negative); Protein, Urine (Dipstick) 200 mg/dL (Neg-Trace); RBC/HPF 0-3 HPF (0-3); Specific Gravity, Urine 1.023 (1.002-1.036); Urobilinogen Normal mg/dL (Less than 2); WBC/HPF Greater than 50 HPF (0-3); pH, Urine 6.5 (5.0-9.0)
[2023-04-01 09:27] LABS: Lactic Acid 1.3 mmol/L (0.5-2.2)
[2023-04-01 09:28] LABS: Urine Culture Reflex Yes Yes
[2023-04-01] MEDS ORDERED: Labetalol HCl 100 MG/20 ML VIAL SLOW IVP SCH (13:00)
[2023-04-01] MEDS: cefTRIAXone\\ROCEPHIN 1 GM in Sodium Chloride 0.9% 100 ML IVPB SCH (14:32)
[2023-04-02] MEDS: Sodium Chloride 0.9% 1,000 ML IV SCH ×3 (01:45→20:59)
[2023-04-02 04:04] LABS: #Monocytes 0.8 thou/uL (0.11-0.59); #Neutrophils 16.2 thou/uL (1.40-6.50); %Basophils 0.2 % (0.0-1.0); %Eosinophils 0.1 % (0.0-10.0); %Monocytes 4.2 % (0.0-10.0); %Neutrophils 90.7 % (42.0-75.0); Hematocrit 41.9 % (42.0-52.0); Hemoglobin 12.7 g/dL (14.0-18.0); Mean Corpuscular HGB CONC 30.3 g/dL (32.0-36.0); Mean Corpuscular Hemoglobin 24.8 pg (27.0-31.0); Mean Corpuscular Volume 81.7 fl (78.0-98.0); Mean Platelet Volume 8.9 fL (7.4-10.4); Platelet Count 249 10x3/uL (130-400); RBC Distribution Width 19.8 % (11.5-14.5); Red Blood Cell (RBC) Count 5.13 mill/uL (4.70-6.10); White Blood Cell (WBC) Count 17.9 10x3/uL (4.8-10.8)
[2023-04-02 04:26] LABS: ALT (SGPT) 10 U/L (8-55); AST (SGOT) 9 U/L (5-34); Albumin 2.8 g/dL (3.4-4.8); Alkaline Phosphatase 56 U/L (40-110); Anion Gap 13 mmol/L (10-20); BUN (Urea Nitrogen) 25 mg/dL (8.4-25.7); Bilirubin, Total 0.3 mg/dL (0.2-1.2); Calc. Creatinine Clearance 57 mL/min (70-130); Calcium 8.7 mg/dL (7.8-10.44); Carbon Dioxide 26 mmol/L (23-31); Chloride 109 mmol/L (98-107); Estimated GFR 46; Globulin 3.1 g/dL (2.4-3.5); Glucose 88 mg/dL (83-110); Potassium 3.7 mmol/L (3.5-5.1); Protein, Total 5.9 g/dL (5.8-8.1); Sodium 144 mmol/L (136-145)
[2023-04-02] MEDS: DOBUTamine 500 mg/250 ml 250 ML IVPB SCH (06:51)
[2023-04-02] MEDS: Heparin 5,000 UNITS/ML VIAL SC SCH ×3 (08:18→20:58)
[2023-04-02] MEDS: cefTRIAXone\\ROCEPHIN 1 GM in Sodium Chloride 0.9% 100 ML IVPB SCH (14:22)
[2023-04-02 14:48] LABS: Potassium (VBG) 8.35 mmol/L (3.70-5.30)
[2023-04-02] MEDS: hydrALAZINE 20 MG/ML VIAL SLOW IVP PRN (23:41)
[2023-04-03] MEDS: Sodium Chloride 0.9% 1,000 ML IV SCH (05:02)
[2023-04-03 05:26] LABS: #Basophils 0.1 thou/uL (0.0-0.2); #Eosinphils 0.1 thou/uL (0.0-0.7); #Monocytes 0.8 thou/uL (0.11-0.59); #Neutrophils 11.5 thou/uL (1.40-6.50); %Basophils 0.4 % (0.0-1.0); %Eosinophils 0.7 % (0.0-10.0); %Lymphocytes 5.3 % (21.0-51.0); %Monocytes 6.1 % (0.0-10.0); %Neutrophils 86.7 % (42.0-75.0); Hematocrit 43.3 % (42.0-52.0); Hemoglobin 13.1 g/dL (14.0-18.0); Mean Corpuscular HGB CONC 30.3 g/dL (32.0-36.0); Mean Corpuscular Volume 82.6 fl (78.0-98.0); Mean Platelet Volume 9.3 fL (7.4-10.4); Platelet Count 264 10x3/uL (130-400); RBC Distribution Width 19.7 % (11.5-14.5); Red Blood Cell (RBC) Count 5.24 mill/uL (4.70-6.10); White Blood Cell (WBC) Count 13.2 10x3/uL (4.8-10.8)
[2023-04-03 05:56] LABS: ALT (SGPT) 10 U/L (8-55); AST (SGOT) 12 U/L (5-34); Albumin 2.8 g/dL (3.4-4.8); Alkaline Phosphatase 72 U/L (40-110); Anion Gap 13 mmol/L (10-20); BUN (Urea Nitrogen) 26 mg/dL (8.4-25.7); Bilirubin, Total 0.6 mg/dL (0.2-1.2); Calc. Creatinine Clearance 65 mL/min (70-130); Calcium 8.8 mg/dL (7.8-10.44); Carbon Dioxide 26 mmol/L (23-31); Chloride 113 mmol/L (98-107); Estimated GFR 54; Globulin 3.2 g/dL (2.4-3.5); Glucose 78 mg/dL (83-110); Potassium 3.4 mmol/L (3.5-5.1); Sodium 149 mmol/L (136-145)
[2023-04-03] MEDS ORDERED: Lactated Ringer's 1,000 ML IV SCH (06:45)
[2023-04-03] MEDS ORDERED: Potassium Chloride 20 MEQ in Premix 1 BAG IVPB SCH (07:00)
[2023-04-03] MEDS: Scopolamine 1 mg/72 hour Patch TD SCH (08:34)
[2023-04-03] MEDS: Labetalol HCl 100 MG/20 ML VIAL SLOW IVP PRN ×2 (08:35→17:34)
[2023-04-03] MEDS: Heparin 5,000 UNITS/ML VIAL SC SCH ×3 (08:38→20:21)
[2023-04-03] MEDS ORDERED: Lisinopril 20 MG TAB PO SCH (09:00)
[2023-04-03] MEDS: Dextrose 5%-Lactated Ringers 1,000 ML IV SCH (13:48)
[2023-04-03] MEDS: hydrALAZINE 20 MG/ML VIAL SLOW IVP PRN ×2 (14:01→20:21)
[2023-04-04] MEDS: Dextrose 5%-Lactated Ringers 1,000 ML IV SCH ×3 (00:08→16:24)
[2023-04-04 05:02] LABS: #Eosinphils 0.2 thou/uL (0.0-0.7); #Monocytes 0.8 thou/uL (0.11-0.59); #Neutrophils 7.1 thou/uL (1.40-6.50); %Basophils 0.5 % (0.0-1.0); %Lymphocytes 6.5 % (21.0-51.0); %Monocytes 9.1 % (0.0-10.0); %Neutrophils 80.2 % (42.0-75.0); Hematocrit 42.8 % (42.0-52.0); Hemoglobin 12.7 g/dL (14.0-18.0); Mean Corpuscular HGB CONC 29.7 g/dL (32.0-36.0); Mean Corpuscular Hemoglobin 24.6 pg (27.0-31.0); Mean Corpuscular Volume 82.9 fl (78.0-98.0); Mean Platelet Volume 9.3 fL (7.4-10.4); Platelet Count 260 10x3/uL (130-400); RBC Distribution Width 19.7 % (11.5-14.5); Red Blood Cell (RBC) Count 5.16 mill/uL (4.70-6.10); White Blood Cell (WBC) Count 8.8 10x3/uL (4.8-10.8)
[2023-04-04] MEDS: hydrALAZINE 20 MG/ML VIAL SLOW IVP PRN (05:17)
[2023-04-04 05:29] LABS: ALT (SGPT) 19 U/L (8-55); AST (SGOT) 23 U/L (5-34); Albumin 2.6 g/dL (3.4-4.8); Alkaline Phosphatase 84 U/L (40-110); Anion Gap 12 mmol/L (10-20); BUN (Urea Nitrogen) 22 mg/dL (8.4-25.7); Bilirubin, Total 0.6 mg/dL (0.2-1.2); Calc. Creatinine Clearance 72 mL/min (70-130); Calcium 8.8 mg/dL (7.8-10.44); Carbon Dioxide 27 mmol/L (23-31); Chloride 114 mmol/L (98-107); Estimated GFR 62; Globulin 3.3 g/dL (2.4-3.5); Glucose 122 mg/dL (83-110); Potassium 3.5 mmol/L (3.5-5.1); Protein, Total 5.9 g/dL (5.8-8.1); Sodium 149 mmol/L (136-145)
[2023-04-04] MEDS ORDERED: Hydrochlorothiazide 25 MG TAB PO SCH ×2 (09:00→10:00)
[2023-04-04] MEDS: Heparin 5,000 UNITS/ML VIAL SC SCH ×3 (09:49→21:16)
[2023-04-04] MEDS: Labetalol HCl 100 MG/20 ML VIAL SLOW IVP PRN (09:49)
[2023-04-04] MEDS ORDERED: Lisinopril 20 MG TAB PO SCH (10:00)
[2023-04-04] MEDS ORDERED: Lisinopril 10 MG TAB PO SCH (18:45)
[2023-04-05 04:20] LABS: #Basophils 0.1 thou/uL (0.0-0.2); #Eosinphils 0.2 thou/uL (0.0-0.7); #Monocytes 0.7 thou/uL (0.11-0.59); #Neutrophils 5.5 thou/uL (1.40-6.50); %Basophils 0.8 % (0.0-1.0); %Eosinophils 2.5 % (0.0-10.0); %Lymphocytes 10.4 % (21.0-51.0); %Monocytes 9.5 % (0.0-10.0); %Neutrophils 72.5 % (42.0-75.0); Hematocrit 39.6 % (42.0-52.0); Hemoglobin 12.1 g/dL (14.0-18.0); Mean Corpuscular HGB CONC 30.6 g/dL (32.0-36.0); Mean Corpuscular Hemoglobin 24.9 pg (27.0-31.0); Mean Corpuscular Volume 81.5 fl (78.0-98.0); Mean Platelet Volume 9.8 fL (7.4-10.4); Platelet Count 245 10x3/uL (130-400); RBC Distribution Width 19.3 % (11.5-14.5); Red Blood Cell (RBC) Count 4.86 mill/uL (4.70-6.10); White Blood Cell (WBC) Count 7.5 10x3/uL (4.8-10.8)
[2023-04-05 04:49] LABS: ALT (SGPT) 30 U/L (8-55); AST (SGOT) 34 U/L (5-34); Albumin 2.6 g/dL (3.4-4.8); Alkaline Phosphatase 68 U/L (40-110); Anion Gap 11 mmol/L (10-20); BUN (Urea Nitrogen) 17 mg/dL (8.4-25.7); Bilirubin, Total 0.7 mg/dL (0.2-1.2); Calc. Creatinine Clearance 71 mL/min (70-130); Calcium 8.3 mg/dL (7.8-10.44); Carbon Dioxide 25 mmol/L (23-31); Chloride 107 mmol/L (98-107); Estimated GFR 60; Globulin 2.6 g/dL (2.4-3.5); Glucose 90 mg/dL (83-110); Potassium 3.4 mmol/L (3.5-5.1); Protein, Total 5.2 g/dL (5.8-8.1); Sodium 140 mmol/L (136-145)
[2023-04-05] MEDS ORDERED: Electrolyte Replacement Protocol FS SCH (06:38)
[2023-04-05] MEDS ORDERED: Docusate 100 MG CAP PO PRN (08:47)
[2023-04-05] MEDS: Heparin 5,000 UNITS/ML VIAL SC SCH ×3 (08:53→20:06)
[2023-04-05] MEDS: Hydrochlorothiazide 25 MG TAB PO SCH (08:53)
[2023-04-05] MEDS ORDERED: Lisinopril 20 MG TAB PO SCH ×2 (09:00→11:15)
[2023-04-05] MEDS ORDERED: Polyethylene Glycol 3350 17 GM Packet PO SCH (09:00)
[2023-04-05] MEDS ORDERED: Potassium Chloride 20 MEQ TAB PO SCH (09:00)
[2023-04-05] MEDS: Ipratropium/Albuterol 3 ML NEB NEB PRN (09:35)
[2023-04-05] MEDS ORDERED: Magnesium 2 GM/50 ML(in water) 2 GM in Premix 1 BAG IVPB SCH (11:00)
[2023-04-06 04:02] LABS: #Basophils 0.1 thou/uL (0.0-0.2); #Eosinphils 0.2 thou/uL (0.0-0.7); #Monocytes 0.7 thou/uL (0.11-0.59); #Neutrophils 6.1 thou/uL (1.40-6.50); %Basophils 0.7 % (0.0-1.0); %Eosinophils 1.9 % (0.0-10.0); %Lymphocytes 11.5 % (21.0-51.0); %Monocytes 8.6 % (0.0-10.0); %Neutrophils 73.2 % (42.0-75.0); Hematocrit 42.7 % (42.0-52.0); Hemoglobin 13.3 g/dL (14.0-18.0); Mean Corpuscular HGB CONC 31.1 g/dL (32.0-36.0); Mean Corpuscular Volume 80.1 fl (78.0-98.0); Mean Platelet Volume 9.6 fL (7.4-10.4); Platelet Count 262 10x3/uL (130-400); RBC Distribution Width 19.4 % (11.5-14.5); Red Blood Cell (RBC) Count 5.33 mill/uL (4.70-6.10); White Blood Cell (WBC) Count 8.3 10x3/uL (4.8-10.8)
[2023-04-06 04:29] LABS: ALT (SGPT) 54 U/L (8-55); AST (SGOT) 45 U/L (5-34); Albumin 2.7 g/dL (3.4-4.8); Alkaline Phosphatase 78 U/L (40-110); Anion Gap 11 mmol/L (10-20); BUN (Urea Nitrogen) 20 mg/dL (8.4-25.7); Bilirubin, Total 0.6 mg/dL (0.2-1.2); Calc. Creatinine Clearance 67 mL/min (70-130); Calcium 8.4 mg/dL (7.8-10.44); Carbon Dioxide 25 mmol/L (23-31); Chloride 106 mmol/L (98-107); Estimated GFR 56; Globulin 3.1 g/dL (2.4-3.5); Glucose 93 mg/dL (83-110); Potassium 3.4 mmol/L (3.5-5.1); Protein, Total 5.8 g/dL (5.8-8.1); Sodium 139 mmol/L (136-145)
[2023-04-06] MEDS: Potassium Chloride 20 MEQ in Premix 1 BAG IVPB SCH ×2 (09:10→12:14)
[2023-04-06] MEDS: Scopolamine 1 mg/72 hour Patch TD SCH (09:10)
[2023-04-06] MEDS: Lisinopril 20 MG TAB PO SCH (09:11)
[2023-04-06] MEDS: Hydrochlorothiazide 25 MG TAB PO SCH (09:11)
[2023-04-06] MEDS: Heparin 5,000 UNITS/ML VIAL SC SCH ×3 (09:11→20:53)
[2023-04-06] MEDS: Ipratropium/Albuterol 3 ML NEB NEB SCH ×3 (11:30→23:38)
[2023-04-07 03:55] LABS: Hemoglobin 12.8 g/dL (14.0-18.0); Manual Diff?? YES; Mean Corpuscular HGB CONC 30.5 g/dL (32.0-36.0); Mean Corpuscular Hemoglobin 24.6 pg (27.0-31.0); Mean Corpuscular Volume 80.6 fl (78.0-98.0); Mean Platelet Volume 9.6 fL (7.4-10.4); Platelet Count 287 10x3/uL (130-400); RBC Distribution Width 19.2 % (11.5-14.5); Red Blood Cell (RBC) Count 5.21 mill/uL (4.70-6.10); White Blood Cell (WBC) Count 8.3 10x3/uL (4.8-10.8)
[2023-04-07 04:27] LABS: ALT (SGPT) 42 U/L (8-55); AST (SGOT) 26 U/L (5-34); Albumin 2.7 g/dL (3.4-4.8); Alkaline Phosphatase 69 U/L (40-110); Anion Gap 11 mmol/L (10-20); BUN (Urea Nitrogen) 18 mg/dL (8.4-25.7); Bilirubin, Total 0.4 mg/dL (0.2-1.2); Calc. Creatinine Clearance 67 mL/min (70-130); Calcium 8.4 mg/dL (7.8-10.44); Carbon Dioxide 26 mmol/L (23-31); Chloride 104 mmol/L (98-107); Estimated GFR 57; Globulin 2.9 g/dL (2.4-3.5); Glucose 102 mg/dL (83-110); Potassium 3.4 mmol/L (3.5-5.1); Protein, Total 5.6 g/dL (5.8-8.1); Sodium 138 mmol/L (136-145)
[2023-04-07 04:43] LABS: Delete Auto Diff?? YES
[2023-04-07 05:42] LABS: Anisocytosis SLIGHT = 6-15 cells HPF (0-5); Band 5 % (5-11); CellaVision Operator ID LAB.JMM; Elliptocytes SLIGHT = 2-5 cells HPF (0-1); Eosinophils 7 % (0-10); Lymphocytes 12 % (21-51); Metamyelocyte 1 % (0-0); Monocytes 2 % (0-10); Myelocyte 2 % (0-0); Neutrophil 70 % (42-75); Platelet Adequacy Comment Platelets Normal; Polychromasia SLIGHT = 2-3 cells HPF (0-2); Reactive Lymphocytes 1 % (0-10); Total Cell Count 100
[2023-04-07] MEDS: Ipratropium/Albuterol 3 ML NEB NEB SCH ×3 (07:05→21:52)
[2023-04-07] MEDS ORDERED: Potassium Bicarbonate/Cit Ac 20 MEQ TAB PO SCH (08:00)
[2023-04-07] MEDS: Hydrochlorothiazide 25 MG TAB PO SCH (08:41)
[2023-04-07] MEDS: Heparin 5,000 UNITS/ML VIAL SC SCH ×3 (08:41→20:07)
[2023-04-07] MEDS: Lisinopril 20 MG TAB PO SCH (08:41)
[2023-04-07] MEDS: NIFEdipine XL 30 MG ER.TAB PO SCH (08:41)
[2023-04-07] MEDS ORDERED: Mometasone 100 MCG/Formoterol 5 MCG 120 PUFF INHALER INH SCH (09:00)
[2023-04-07] MEDS: Mometasone 100 MCG/Formoterol 5 MCG 120 PUFF INHALER INH SCH (21:52)
[2023-04-08] MEDS: Ipratropium/Albuterol 3 ML NEB NEB SCH (02:55)
[2023-04-08 04:35] LABS: #Basophils 0.1 thou/uL (0.0-0.2); #Eosinphils 0.3 thou/uL (0.0-0.7); #Monocytes 0.8 thou/uL (0.11-0.59); #Neutrophils 9.6 thou/uL (1.40-6.50); %Basophils 0.4 % (0.0-1.0); %Eosinophils 2.3 % (0.0-10.0); %Lymphocytes 8.4 % (21.0-51.0); %Monocytes 6.7 % (0.0-10.0); %Neutrophils 79.6 % (42.0-75.0); Hematocrit 44.6 % (42.0-52.0); Hemoglobin 13.8 g/dL (14.0-18.0); Mean Corpuscular HGB CONC 30.9 g/dL (32.0-36.0); Mean Corpuscular Hemoglobin 24.9 pg (27.0-31.0); Mean Corpuscular Volume 80.4 fl (78.0-98.0); Mean Platelet Volume 9.6 fL (7.4-10.4); Platelet Count 338 10x3/uL (130-400); RBC Distribution Width 19.5 % (11.5-14.5); Red Blood Cell (RBC) Count 5.55 mill/uL (4.70-6.10); White Blood Cell (WBC) Count 12.1 10x3/uL (4.8-10.8)
[2023-04-08 04:58] LABS: ALT (SGPT) 37 U/L (8-55); AST (SGOT) 22 U/L (5-34); Alkaline Phosphatase 73 U/L (40-110); Anion Gap 15 mmol/L (10-20); BUN (Urea Nitrogen) 16 mg/dL (8.4-25.7); Bilirubin, Total 0.5 mg/dL (0.2-1.2); Calc. Creatinine Clearance 63 mL/min (70-130); Carbon Dioxide 26 mmol/L (23-31); Chloride 100 mmol/L (98-107); Estimated GFR 54; Globulin 3.3 g/dL (2.4-3.5); Glucose 109 mg/dL (83-110); Potassium 3.7 mmol/L (3.5-5.1); Protein, Total 6.3 g/dL (5.8-8.1); Sodium 137 mmol/L (136-145)
[2023-04-08] MEDS: Mometasone 100 MCG/Formoterol 5 MCG 120 PUFF INHALER INH SCH ×2 (07:23→19:00)
[2023-04-08] MEDS: NIFEdipine XL 30 MG ER.TAB PO SCH (11:47)
[2023-04-08] MEDS: Hydrochlorothiazide 25 MG TAB PO SCH (11:47)
[2023-04-08] MEDS: Lisinopril 20 MG TAB PO SCH (11:47)
[2023-04-08] MEDS: Docusate 100 MG CAP PO SCH (11:48)
[2023-04-08] MEDS: Heparin 5,000 UNITS/ML VIAL SC SCH ×3 (11:48→21:38)
[2023-04-08] MEDS: Polyethylene Glycol 3350 17 GM Packet PO SCH (11:48)
[2023-04-08] MEDS ORDERED: Electrolyte Replacement Protocol FS PRN (13:15)
[2023-04-09] MEDS: Ondansetron PF 4 MG/2 ML Vial IVP PRN ×3 (01:15→15:16)
[2023-04-09] MEDS: Docusate 100 MG CAP PO SCH ×2 (02:42→11:42)
[2023-04-09 05:56] LABS: #Basophils 0.1 thou/uL (0.0-0.2); #Eosinphils 0.2 thou/uL (0.0-0.7); #Monocytes 0.8 thou/uL (0.11-0.59); #Neutrophils 12.2 thou/uL (1.40-6.50); %Basophils 0.5 % (0.0-1.0); %Eosinophils 1.3 % (0.0-10.0); %Lymphocytes 8.7 % (21.0-51.0); %Monocytes 5.3 % (0.0-10.0); %Neutrophils 82.1 % (42.0-75.0); Hematocrit 47.6 % (42.0-52.0); Hemoglobin 14.7 g/dL (14.0-18.0); Mean Corpuscular HGB CONC 30.9 g/dL (32.0-36.0); Mean Corpuscular Hemoglobin 24.6 pg (27.0-31.0); Mean Corpuscular Volume 79.7 fl (78.0-98.0); Mean Platelet Volume 9.1 fL (7.4-10.4); Platelet Count 366 10x3/uL (130-400); RBC Distribution Width 19.8 % (11.5-14.5); Red Blood Cell (RBC) Count 5.97 mill/uL (4.70-6.10); White Blood Cell (WBC) Count 14.8 10x3/uL (4.8-10.8)
[2023-04-09 06:24] LABS: Anion Gap 14 mmol/L (10-20); BUN (Urea Nitrogen) 21 mg/dL (8.4-25.7); Calc. Creatinine Clearance 66 mL/min (70-130); Calcium 9.3 mg/dL (7.8-10.44); Carbon Dioxide 24 mmol/L (23-31); Chloride 99 mmol/L (98-107); Estimated GFR 57; Glucose 108 mg/dL (83-110); Magnesium 2.1 mg/dL (1.6-2.6); Potassium 3.4 mmol/L (3.5-5.1); Sodium 134 mmol/L (136-145)
[2023-04-09] MEDS ORDERED: Potassium Chloride 20 MEQ TAB PO SCH (08:00)
[2023-04-09] MEDS: Mometasone 100 MCG/Formoterol 5 MCG 120 PUFF INHALER INH SCH ×2 (08:01→18:48)
[2023-04-09] MEDS: Scopolamine 1 mg/72 hour Patch TD SCH (09:14)
[2023-04-09] MEDS: Hydrochlorothiazide 25 MG TAB PO SCH (11:49)
[2023-04-09] MEDS: Lisinopril 20 MG TAB PO SCH (11:49)
[2023-04-09] MEDS: NIFEdipine XL 30 MG ER.TAB PO SCH (11:49)
[2023-04-09] MEDS: Heparin 5,000 UNITS/ML VIAL SC SCH ×3 (11:49→20:32)
[2023-04-09] MEDS: Polyethylene Glycol 3350 17 GM Packet PO SCH (12:05)
[2023-04-09] MEDS ORDERED: Promethazine 25 MG TAB PO SCH (15:15)
[2023-04-09] MEDS ORDERED: Lactated Ringer's 1,000 ML IV SCH (15:15)
[2023-04-09] MEDS ORDERED: Promethazine HCl 25 MG/ML VIAL IM SCH (15:15)
[2023-04-10] MEDS: Mometasone 100 MCG/Formoterol 5 MCG 120 PUFF INHALER INH SCH ×2 (07:04→19:01)
[2023-04-10] MEDS: Lisinopril 20 MG TAB PO SCH (09:26)
[2023-04-10] MEDS: Ondansetron PF 4 MG/2 ML Vial IVP PRN (09:27)
[2023-04-10] MEDS: NIFEdipine XL 30 MG ER.TAB PO SCH (09:27)
[2023-04-10] MEDS: Heparin 5,000 UNITS/ML VIAL SC SCH ×3 (09:27→20:31)
[2023-04-10] MEDS: Hydrochlorothiazide 25 MG TAB PO SCH (09:27)
[2023-04-10] MEDS ORDERED: Iopamidol 370 76% 100 ML VIAL ONE (09:35)
[2023-04-10 10:09] LABS: Anion Gap 16 mmol/L (10-20); BUN (Urea Nitrogen) 24 mg/dL (8.4-25.7); Calc. Creatinine Clearance 57 mL/min (70-130); Calcium 9.8 mg/dL (7.8-10.44); Carbon Dioxide 25 mmol/L (23-31); Chloride 98 mmol/L (98-107); Estimated GFR 50; Glucose 119 mg/dL (83-110); Potassium 3.8 mmol/L (3.5-5.1); Sodium 135 mmol/L (136-145)
[2023-04-10 10:31] LABS: Hematocrit 48.9 % (42.0-52.0); Manual Diff?? YES; Mean Corpuscular HGB CONC 30.7 g/dL (32.0-36.0); Mean Corpuscular Hemoglobin 24.8 pg (27.0-31.0); Mean Corpuscular Volume 80.7 fl (78.0-98.0); Mean Platelet Volume 9.9 fL (7.4-10.4); Platelet Count 442 10x3/uL (130-400); RBC Distribution Width 19.9 % (11.5-14.5); Red Blood Cell (RBC) Count 6.06 mill/uL (4.70-6.10); White Blood Cell (WBC) Count 29.3 10x3/uL (4.8-10.8)
[2023-04-10 10:52] LABS: Delete Auto Diff?? YES
[2023-04-10] MEDS ORDERED: Promethazine 25 MG TAB PO PRN ×2 (11:16→15:37)
[2023-04-10] MEDS ORDERED: Furosemide 20 MG/2 ML VIAL SLOW IVP SCH (11:30)
[2023-04-10 11:45] LABS: Lactic Acid 1.4 mmol/L (0.5-2.2)
[2023-04-10 11:50] LABS: ALT (SGPT) 31 U/L (8-55); AST (SGOT) 18 U/L (5-34); Albumin 3.2 g/dL (3.4-4.8); Alkaline Phosphatase 82 U/L (40-110); Bilirubin, Direct 0.3 mg/dL (0.1-0.3); Bilirubin, Total 0.6 mg/dL (0.2-1.2); Protein, Total 7.2 g/dL (5.8-8.1)
[2023-04-10] MEDS: Lactated Ringer's 1,000 ML IV SCH (11:50)
[2023-04-10] MEDS ORDERED: Piperacillin/Tazobactam 3.375 GM in Sodium Chloride 0.9% 100 ML IVPB SCH ×2 (12:00→20:00)
[2023-04-10 12:29] LABS: Band 4 % (5-11); Lymphocytes 3 % (21-51); Monocytes 2 % (0-10); Neutrophil 89 % (42-75); Promyelocytes 2 % (0-0)
[2023-04-10 12:30] LABS: Platelet Adequacy Comment Platelets Increased; Polychromasia SLIGHT = 2-3 cells (100X) (0-2/hpf)
[2023-04-10 13:19] LABS: Bacteria/HPF None Seen HPF (None Seen); Bilirubin Negative (Negative); Blood, Urine 1+ (Negative); CAUTI Indications for Culture Alt mental st,lethar; Clarity Extra Turbid (Clear); Glucose, Urine (Dipstick) Normal (Negative); Ketone, Urine Negative (Negative); Leukocyte 500 Leu/uL (Negative); Nitrite Negative (Negative); Protein, Urine (Dipstick) 70 mg/dL (Neg-Trace); Renal Epithelial 0-3 HPF (None Seen); Specific Gravity, Urine 1.025 (1.002-1.036); Squamous Epithelial Greater than 50 HPF (0-3); Urobilinogen Normal mg/dL (Less than 2); WBC/HPF Greater than 50 HPF (0-3); pH, Urine 5.5 (5.0-9.0)
[2023-04-10 13:20] LABS: Urine Culture Reflex Yes Yes
[2023-04-10 14:55] LABS: Bacteria/HPF None Seen HPF (None Seen); Bilirubin Negative (Negative); Blood, Urine Negative (Negative); CAUTI Indications for Culture Alt mental st,lethar; Clarity Clear (Clear); Glucose, Urine (Dipstick) Normal (Negative); Ketone, Urine Negative (Negative); Leukocyte 500 Leu/uL (Negative); Nitrite Negative (Negative); Protein, Urine (Dipstick) 30 mg/dL (Neg-Trace); RBC/HPF 0-3 HPF (0-3); Specific Gravity, Urine 1.025 (1.002-1.036); Squamous Epithelial 0-3 HPF (0-3); Urobilinogen Normal mg/dL (Less than 2); WBC/HPF 21-50 HPF (0-3)
[2023-04-10] MEDS: Piperacillin/Tazobactam 3.375 GM in Sodium Chloride 0.9% 100 ML IVPB SCH (15:30)
[2023-04-10] MEDS: Vancomycin (BATCH) 1.75 GM in Premix 1 BAG IVPB SCH (15:30)
[2023-04-10 18:03] LABS: Base Excess -1.4 mEq/L (-2.0 to +3.0); Calcium, Ionized (venous) 0.91 mmol/L (1.16-1.32); Chloride (VBG) 97 mmol/L (98-106); Hematocrit-VBG 52 % (42.0-52.0); Hemoglobin (Hb) 17.8 g/dL (12.6-17.4); Potassium (VBG) 5.44 mmol/L (3.70-5.30); Sodium 134 mmol/L (133-146); pH (venous) 7.427 (7.32-7.43)
[2023-04-10] MEDS: Ipratropium/Albuterol 3 ML NEB NEB PRN (19:00)
[2023-04-10] MEDS: Ipratropium Bromide 2.5 ml Neb NEB SCH ×2 (19:05→21:35)
[2023-04-10] MEDS ORDERED: Vancomycin 1.25 GM in Sodium Chloride 0.9% 250 ML 300 ML IVPB SCH (21:00)
[2023-04-10] MEDS ORDERED: Cefepime 1 GM in Sodium Chloride 0.9% 100 ML IVPB SCH (21:00)
[2023-04-11] MEDS: Piperacillin/Tazobactam 3.375 GM in Sodium Chloride 0.9% 100 ML IVPB SCH ×4 (00:06→23:58)
[2023-04-11] MEDS: Ipratropium Bromide 2.5 ml Neb NEB SCH ×6 (02:07→23:26)
[2023-04-11] MEDS: Lactated Ringer's 1,000 ML IV SCH ×3 (02:59→23:58)
[2023-04-11 06:32] LABS: ALT (SGPT) 22 U/L (8-55); AST (SGOT) 14 U/L (5-34); Albumin 3.2 g/dL (3.4-4.8); Alkaline Phosphatase 81 U/L (40-110); Anion Gap 19 mmol/L (10-20); BUN (Urea Nitrogen) 30 mg/dL (8.4-25.7); Bilirubin, Total 0.6 mg/dL (0.2-1.2); Calc. Creatinine Clearance 48 mL/min (70-130); Calcium 9.7 mg/dL (7.8-10.44); Carbon Dioxide 24 mmol/L (23-31); Chloride 99 mmol/L (98-107); Estimated GFR 41; Globulin 3.8 g/dL (2.4-3.5); Glucose 109 mg/dL (83-110); Potassium 3.6 mmol/L (3.5-5.1); Sodium 138 mmol/L (136-145)
[2023-04-11 07:07] LABS: Hematocrit 50.4 % (42.0-52.0); Hemoglobin 15.7 g/dL (14.0-18.0); Manual Diff?? YES; Mean Corpuscular HGB CONC 31.2 g/dL (32.0-36.0); Mean Corpuscular Hemoglobin 24.8 pg (27.0-31.0); Mean Corpuscular Volume 79.7 fl (78.0-98.0); Mean Platelet Volume 9.9 fL (7.4-10.4); Platelet Count 355 10x3/uL (130-400); RBC Distribution Width 20.4 % (11.5-14.5); Red Blood Cell (RBC) Count 6.32 mill/uL (4.70-6.10); White Blood Cell (WBC) Count 28.1 10x3/uL (4.8-10.8)
[2023-04-11 07:10] LABS: Delete Auto Diff?? YES
[2023-04-11] MEDS: Mometasone 100 MCG/Formoterol 5 MCG 120 PUFF INHALER INH SCH ×2 (08:03→18:49)
[2023-04-11 08:15] LABS: Band 5 % (5-11); CellaVision Operator ID LAB.GE; Lymphocytes 1 % (21-51); Monocytes 9 % (0-10); Neutrophil 84 % (42-75); Ovalocytes SLIGHT = 2-5 cells HPF (0-1); Platelet Adequacy Comment Platelets Normal; Polychromasia SLIGHT = 2-3 cells HPF (0-2); Reactive Lymphocytes 1 % (0-10); Total Cell Count 102
[2023-04-11] MEDS ORDERED: Pantoprazole 40 MG VIAL IVP SCH (09:00)
[2023-04-11] MEDS ORDERED: Lactated Ringer's 1,000 ML IV SCH (09:12)
[2023-04-11] MEDS: Heparin 5,000 UNITS/ML VIAL SC SCH ×3 (10:49→21:17)
[2023-04-11] MEDS: Hydrochlorothiazide 25 MG TAB PO SCH (10:49)
[2023-04-11] MEDS: NIFEdipine XL 30 MG ER.TAB PO SCH (10:49)
[2023-04-11] MEDS: Lisinopril 20 MG TAB PO SCH (10:49)
[2023-04-11] MEDS: Vancomycin (BATCH) 1.75 GM in Premix 1 BAG IVPB SCH (13:37)
[2023-04-12] MEDS: Ipratropium Bromide 2.5 ml Neb NEB SCH ×6 (02:35→23:14)
[2023-04-12 05:13] LABS: #Basophils 0.1 thou/uL (0.0-0.2); #Eosinphils 0.1 thou/uL (0.0-0.7); #Monocytes 0.9 thou/uL (0.11-0.59); %Basophils 0.2 % (0.0-1.0); %Eosinophils 0.3 % (0.0-10.0); %Monocytes 3.6 % (0.0-10.0); %Neutrophils 91.9 % (42.0-75.0); Hematocrit 44.6 % (42.0-52.0); Hemoglobin 13.8 g/dL (14.0-18.0); Mean Corpuscular HGB CONC 30.9 g/dL (32.0-36.0); Mean Corpuscular Volume 80.9 fl (78.0-98.0); Mean Platelet Volume 9.3 fL (7.4-10.4); Platelet Count 395 10x3/uL (130-400); RBC Distribution Width 20.2 % (11.5-14.5); Red Blood Cell (RBC) Count 5.51 mill/uL (4.70-6.10); White Blood Cell (WBC) Count 23.9 10x3/uL (4.8-10.8)
[2023-04-12 07:06] LABS: ALT (SGPT) 17 U/L (8-55); AST (SGOT) 17 U/L (5-34); Albumin 2.9 g/dL (3.4-4.8); Alkaline Phosphatase 95 U/L (40-110); Anion Gap 21 mmol/L (10-20); BUN (Urea Nitrogen) 28 mg/dL (8.4-25.7); Bilirubin, Total 0.5 mg/dL (0.2-1.2); Calc. Creatinine Clearance 51 mL/min (70-130); Calcium 9.4 mg/dL (7.8-10.44); Carbon Dioxide 21 mmol/L (23-31); Chloride 102 mmol/L (98-107); Estimated GFR 45; Globulin 3.6 g/dL (2.4-3.5); Glucose 81 mg/dL (83-110); Potassium 3.7 mmol/L (3.5-5.1); Protein, Total 6.5 g/dL (5.8-8.1); Sodium 140 mmol/L (136-145)
[2023-04-12] MEDS: Mometasone 100 MCG/Formoterol 5 MCG 120 PUFF INHALER INH SCH ×2 (07:47→19:34)
[2023-04-12] MEDS: NIFEdipine XL 30 MG ER.TAB PO SCH (11:32)
[2023-04-12] MEDS: Lisinopril 20 MG TAB PO SCH (11:32)
[2023-04-12] MEDS: Hydrochlorothiazide 25 MG TAB PO SCH (11:32)
[2023-04-12] MEDS: Pantoprazole 40 MG VIAL IVP SCH ×2 (11:32→20:47)
[2023-04-12] MEDS: Heparin 5,000 UNITS/ML VIAL SC SCH ×3 (11:32→20:47)
[2023-04-12] MEDS: Piperacillin/Tazobactam 3.375 GM in Sodium Chloride 0.9% 100 ML IVPB SCH ×2 (11:34→17:37)
[2023-04-12] MEDS: Lactated Ringer's 1,000 ML IV SCH ×2 (11:35→20:48)
[2023-04-12] MEDS: Scopolamine 1 mg/72 hour Patch TD SCH (17:37)
[2023-04-13] MEDS: Piperacillin/Tazobactam 3.375 GM in Sodium Chloride 0.9% 100 ML IVPB SCH ×3 (00:33→17:28)
[2023-04-13] MEDS: Ipratropium Bromide 2.5 ml Neb NEB SCH ×6 (02:40→22:42)
[2023-04-13 04:10] LABS: #Eosinphils 0.1 thou/uL (0.0-0.7); #Monocytes 0.6 thou/uL (0.11-0.59); %Basophils 0.2 % (0.0-1.0); %Eosinophils 0.5 % (0.0-10.0); %Lymphocytes 5.1 % (21.0-51.0); %Neutrophils 89.4 % (42.0-75.0); Hemoglobin 11.5 g/dL (14.0-18.0); Mean Corpuscular HGB CONC 31.1 g/dL (32.0-36.0); Mean Corpuscular Hemoglobin 25.2 pg (27.0-31.0); Mean Platelet Volume 9.1 fL (7.4-10.4); Platelet Count 360 10x3/uL (130-400); RBC Distribution Width 19.2 % (11.5-14.5); Red Blood Cell (RBC) Count 4.57 mill/uL (4.70-6.10); White Blood Cell (WBC) Count 14.6 10x3/uL (4.8-10.8)
[2023-04-13] MEDS: Mometasone 100 MCG/Formoterol 5 MCG 120 PUFF INHALER INH SCH ×2 (07:27→19:04)
[2023-04-13 08:55] LABS: ALT (SGPT) 16 U/L (8-55); AST (SGOT) 13 U/L (5-34); Albumin 2.6 g/dL (3.4-4.8); Alkaline Phosphatase 82 U/L (40-110); Anion Gap 13 mmol/L (10-20); BUN (Urea Nitrogen) 18 mg/dL (8.4-25.7); Bilirubin, Total 0.6 mg/dL (0.2-1.2); Calc. Creatinine Clearance 62 mL/min (70-130); Calcium 8.8 mg/dL (7.8-10.44); Carbon Dioxide 30 mmol/L (23-31); Chloride 99 mmol/L (98-107); Estimated GFR 56; Globulin 3.3 g/dL (2.4-3.5); Glucose 88 mg/dL (83-110); Potassium 3.2 mmol/L (3.5-5.1); Protein, Total 5.9 g/dL (5.8-8.1); Sodium 139 mmol/L (136-145)
[2023-04-13] MEDS ORDERED: Potassium Chloride 20 MEQ TAB PO SCH (09:30)
[2023-04-13] MEDS: NIFEdipine XL 30 MG ER.TAB PO SCH (10:08)
[2023-04-13] MEDS: Pantoprazole 40 MG VIAL IVP SCH ×2 (10:09→20:41)
[2023-04-13] MEDS: Hydrochlorothiazide 25 MG TAB PO SCH (10:09)
[2023-04-13] MEDS: Lisinopril 20 MG TAB PO SCH (10:09)
[2023-04-13] MEDS: Heparin 5,000 UNITS/ML VIAL SC SCH ×3 (10:09→20:40)
[2023-04-13] MEDS ORDERED: Potassium Bicarbonate/Cit Ac 20 MEQ TAB PER TUBE SCH (10:15)
[2023-04-13] MEDS: Lactated Ringer's 1,000 ML IV SCH (10:22)
[2023-04-14] MEDS: Piperacillin/Tazobactam 3.375 GM in Sodium Chloride 0.9% 100 ML IVPB SCH ×3 (00:06→15:27)
[2023-04-14] MEDS: Ipratropium Bromide 2.5 ml Neb NEB SCH ×6 (02:32→22:03)
[2023-04-14 04:06] LABS: #Eosinphils 0.1 thou/uL (0.0-0.7); #Monocytes 0.6 thou/uL (0.11-0.59); #Neutrophils 8.7 thou/uL (1.40-6.50); %Basophils 0.4 % (0.0-1.0); %Eosinophils 0.6 % (0.0-10.0); %Lymphocytes 6.6 % (21.0-51.0); %Monocytes 6.2 % (0.0-10.0); %Neutrophils 85.6 % (42.0-75.0); Hematocrit 39.3 % (42.0-52.0); Hemoglobin 12.2 g/dL (14.0-18.0); Mean Corpuscular Hemoglobin 25.1 pg (27.0-31.0); Mean Corpuscular Volume 80.9 fl (78.0-98.0); Mean Platelet Volume 8.7 fL (7.4-10.4); Platelet Count 336 10x3/uL (130-400); RBC Distribution Width 19.2 % (11.5-14.5); Red Blood Cell (RBC) Count 4.86 mill/uL (4.70-6.10); White Blood Cell (WBC) Count 10.1 10x3/uL (4.8-10.8)
[2023-04-14 04:32] LABS: ALT (SGPT) 31 U/L (8-55); AST (SGOT) 37 U/L (5-34); Albumin 2.7 g/dL (3.4-4.8); Alkaline Phosphatase 91 U/L (40-110); Anion Gap 11 mmol/L (10-20); BUN (Urea Nitrogen) 14 mg/dL (8.4-25.7); Bilirubin, Total 0.9 mg/dL (0.2-1.2); Calc. Creatinine Clearance 61 mL/min (70-130); Calcium 8.7 mg/dL (7.8-10.44); Carbon Dioxide 26 mmol/L (23-31); Chloride 101 mmol/L (98-107); Estimated GFR 56; Globulin 3.3 g/dL (2.4-3.5); Glucose 103 mg/dL (83-110); Potassium 3.1 mmol/L (3.5-5.1); Sodium 135 mmol/L (136-145)
[2023-04-14] MEDS: Potassium Chloride 20 MEQ in Premix 1 BAG IVPB SCH ×2 (06:19→10:51)
[2023-04-14] MEDS: Mometasone 100 MCG/Formoterol 5 MCG 120 PUFF INHALER INH SCH ×2 (07:48→18:35)
[2023-04-14] MEDS: NIFEdipine XL 30 MG ER.TAB PO SCH (10:50)
[2023-04-14] MEDS: Pantoprazole 40 MG VIAL IVP SCH ×2 (10:50→21:59)
[2023-04-14] MEDS: Lisinopril 20 MG TAB PO SCH (10:50)
[2023-04-14] MEDS: Hydrochlorothiazide 25 MG TAB PO SCH (10:51)
[2023-04-14] MEDS: Heparin 5,000 UNITS/ML VIAL SC SCH ×3 (10:51→21:59)
[2023-04-15] MEDS: Piperacillin/Tazobactam 3.375 GM in Sodium Chloride 0.9% 100 ML IVPB SCH ×3 (00:41→15:30)
[2023-04-15] MEDS: Ondansetron PF 4 MG/2 ML Vial IVP PRN (01:16)
[2023-04-15] MEDS: Ipratropium Bromide 2.5 ml Neb NEB SCH ×6 (02:10→21:47)
[2023-04-15] MEDS: Mometasone 100 MCG/Formoterol 5 MCG 120 PUFF INHALER INH SCH ×2 (06:47→19:33)
[2023-04-15] MEDS: Pantoprazole 40 MG VIAL IVP SCH ×2 (09:06→20:48)
[2023-04-15] MEDS: Scopolamine 1 mg/72 hour Patch TD SCH (09:06)
[2023-04-15] MEDS: Hydrochlorothiazide 25 MG TAB PO SCH (09:07)
[2023-04-15] MEDS: Lisinopril 20 MG TAB PO SCH (09:07)
[2023-04-15] MEDS: NIFEdipine XL 30 MG ER.TAB PO SCH (09:08)
[2023-04-15] MEDS: Metoclopramide HCl 10 MG/2 ML VIAL IVP SCH ×3 (09:08→20:49)
[2023-04-15] MEDS: Heparin 5,000 UNITS/ML VIAL SC SCH ×3 (09:10→20:47)
[2023-04-15 09:55] LABS: #Eosinphils 0.1 thou/uL (0.0-0.7); #Monocytes 0.6 thou/uL (0.11-0.59); #Neutrophils 7.8 thou/uL (1.40-6.50); %Basophils 0.4 % (0.0-1.0); %Eosinophils 0.9 % (0.0-10.0); %Lymphocytes 9.1 % (21.0-51.0); %Neutrophils 82.9 % (42.0-75.0); Hematocrit 42.7 % (42.0-52.0); Hemoglobin 13.2 g/dL (14.0-18.0); Mean Corpuscular HGB CONC 30.9 g/dL (32.0-36.0); Mean Corpuscular Hemoglobin 25.2 pg (27.0-31.0); Mean Corpuscular Volume 81.5 fl (78.0-98.0); Mean Platelet Volume 9.3 fL (7.4-10.4); Platelet Count 326 10x3/uL (130-400); RBC Distribution Width 19.3 % (11.5-14.5); Red Blood Cell (RBC) Count 5.24 mill/uL (4.70-6.10); White Blood Cell (WBC) Count 9.4 10x3/uL (4.8-10.8)
[2023-04-15 10:18] LABS: ALT (SGPT) 57 U/L (8-55); AST (SGOT) 51 U/L (5-34); Alkaline Phosphatase 87 U/L (40-110); Anion Gap 14 mmol/L (10-20); BUN (Urea Nitrogen) 12 mg/dL (8.4-25.7); Bilirubin, Total 0.8 mg/dL (0.2-1.2); Calc. Creatinine Clearance 57 mL/min (70-130); Calcium 9.3 mg/dL (7.8-10.44); Carbon Dioxide 24 mmol/L (23-31); Chloride 100 mmol/L (98-107); Estimated GFR 53; Globulin 3.7 g/dL (2.4-3.5); Glucose 97 mg/dL (83-110); Potassium 3.4 mmol/L (3.5-5.1); Protein, Total 6.7 g/dL (5.8-8.1); Sodium 135 mmol/L (136-145)
[2023-04-15] MEDS ORDERED: Potassium Chloride 40 MEQ in Premix 1 BAG IVPB SCH (11:00)
[2023-04-15] MEDS: Potassium Chloride 20 MEQ in Premix 1 BAG IVPB SCH ×2 (11:29→13:25)
[2023-04-16] MEDS: Piperacillin/Tazobactam 3.375 GM in Sodium Chloride 0.9% 100 ML IVPB SCH ×3 (01:03→15:59)
[2023-04-16] MEDS: Ipratropium Bromide 2.5 ml Neb NEB SCH ×6 (02:05→21:58)
[2023-04-16] MEDS: Metoclopramide HCl 10 MG/2 ML VIAL IVP SCH ×3 (04:17→16:00)
[2023-04-16 04:27] LABS: #Eosinphils 0.1 thou/uL (0.0-0.7); #Monocytes 0.7 thou/uL (0.11-0.59); #Neutrophils 6.7 thou/uL (1.40-6.50); %Basophils 0.4 % (0.0-1.0); %Eosinophils 1.4 % (0.0-10.0); %Lymphocytes 9.6 % (21.0-51.0); %Monocytes 8.1 % (0.0-10.0); %Neutrophils 79.2 % (42.0-75.0); Hematocrit 41.5 % (42.0-52.0); Hemoglobin 12.9 g/dL (14.0-18.0); Mean Corpuscular HGB CONC 31.1 g/dL (32.0-36.0); Mean Corpuscular Hemoglobin 25.1 pg (27.0-31.0); Mean Corpuscular Volume 80.7 fl (78.0-98.0); Mean Platelet Volume 8.8 fL (7.4-10.4); Platelet Count 330 10x3/uL (130-400); RBC Distribution Width 19.3 % (11.5-14.5); Red Blood Cell (RBC) Count 5.14 mill/uL (4.70-6.10); White Blood Cell (WBC) Count 8.4 10x3/uL (4.8-10.8)
[2023-04-16 04:53] LABS: ALT (SGPT) 52 U/L (8-55); AST (SGOT) 38 U/L (5-34); Albumin 3.1 g/dL (3.4-4.8); Alkaline Phosphatase 84 U/L (40-110); Anion Gap 13 mmol/L (10-20); BUN (Urea Nitrogen) 11 mg/dL (8.4-25.7); Bilirubin, Total 0.6 mg/dL (0.2-1.2); Calc. Creatinine Clearance 56 mL/min (70-130); Calcium 9.2 mg/dL (7.8-10.44); Carbon Dioxide 25 mmol/L (23-31); Chloride 100 mmol/L (98-107); Estimated GFR 52; Globulin 3.4 g/dL (2.4-3.5); Glucose 101 mg/dL (83-110); Potassium 3.5 mmol/L (3.5-5.1); Protein, Total 6.5 g/dL (5.8-8.1); Sodium 134 mmol/L (136-145)
[2023-04-16] MEDS: Mometasone 100 MCG/Formoterol 5 MCG 120 PUFF INHALER INH SCH ×2 (07:03→18:11)
[2023-04-16] MEDS ORDERED: Potassium Chloride 20 MEQ TAB PO SCH (08:00)
[2023-04-16] MEDS ORDERED: Sodium Chloride 0.9% 1,000 ML IV SCH (09:15)
[2023-04-16] MEDS: Hydrochlorothiazide 25 MG TAB PO SCH (10:19)
[2023-04-16] MEDS: NIFEdipine XL 30 MG ER.TAB PO SCH (10:19)
[2023-04-16] MEDS: Lisinopril 20 MG TAB PO SCH (10:19)
[2023-04-16] MEDS: Heparin 5,000 UNITS/ML VIAL SC SCH ×2 (10:19→16:00)
[2023-04-16] MEDS: Pantoprazole 40 MG VIAL IVP SCH (10:21)
[2023-04-17] MEDS: Piperacillin/Tazobactam 3.375 GM in Sodium Chloride 0.9% 100 ML IVPB SCH ×3 (00:21→14:53)
[2023-04-17] MEDS: Heparin 5,000 UNITS/ML VIAL SC SCH ×4 (00:21→21:42)
[2023-04-17] MEDS: Pantoprazole 40 MG VIAL IVP SCH ×3 (00:22→21:41)
[2023-04-17] MEDS: Metoclopramide HCl 10 MG/2 ML VIAL IVP SCH ×5 (00:22→21:42)
[2023-04-17] MEDS: Ipratropium Bromide 2.5 ml Neb NEB SCH ×4 (01:47→14:35)
[2023-04-17 04:41] LABS: #Basophils 0.1 thou/uL (0.0-0.2); #Eosinphils 0.2 thou/uL (0.0-0.7); #Monocytes 0.9 thou/uL (0.11-0.59); #Neutrophils 6.2 thou/uL (1.40-6.50); %Basophils 0.6 % (0.0-1.0); %Eosinophils 2.3 % (0.0-10.0); %Lymphocytes 14.7 % (21.0-51.0); %Monocytes 9.8 % (0.0-10.0); %Neutrophils 70.8 % (42.0-75.0); Hematocrit 44.4 % (42.0-52.0); Hemoglobin 13.8 g/dL (14.0-18.0); Mean Corpuscular HGB CONC 31.1 g/dL (32.0-36.0); Mean Corpuscular Hemoglobin 25.1 pg (27.0-31.0); Mean Corpuscular Volume 80.7 fl (78.0-98.0); Mean Platelet Volume 8.9 fL (7.4-10.4); Platelet Count 358 10x3/uL (130-400); RBC Distribution Width 19.9 % (11.5-14.5); White Blood Cell (WBC) Count 8.8 10x3/uL (4.8-10.8)
[2023-04-17 05:13] LABS: ALT (SGPT) 48 U/L (8-55); AST (SGOT) 28 U/L (5-34); Albumin 3.1 g/dL (3.4-4.8); Alkaline Phosphatase 85 U/L (40-110); Anion Gap 12 mmol/L (10-20); BUN (Urea Nitrogen) 11 mg/dL (8.4-25.7); Bilirubin, Total 0.6 mg/dL (0.2-1.2); Calc. Creatinine Clearance 52 mL/min (70-130); Calcium 9.6 mg/dL (7.8-10.44); Carbon Dioxide 25 mmol/L (23-31); Chloride 101 mmol/L (98-107); Estimated GFR 49; Globulin 3.9 g/dL (2.4-3.5); Glucose 100 mg/dL (83-110); Potassium 4.2 mmol/L (3.5-5.1); Sodium 134 mmol/L (136-145)
[2023-04-17] MEDS: Mometasone 100 MCG/Formoterol 5 MCG 120 PUFF INHALER INH SCH (07:45)
[2023-04-17] MEDS: Hydrochlorothiazide 25 MG TAB PO SCH (09:17)
[2023-04-17] MEDS: Lisinopril 20 MG TAB PO SCH (09:17)
[2023-04-17] MEDS: NIFEdipine XL 30 MG ER.TAB PO SCH (09:18)
[2023-04-17] MEDS: Sodium Chloride 0.9% 1,000 ML IV SCH (09:22)
[2023-04-17] MEDS ORDERED: LYTES IN TPN IVPB PRN (17:56)
[2023-04-18] MEDS: Metoclopramide HCl 10 MG/2 ML VIAL IVP SCH ×4 (03:01→19:57)
[2023-04-18] MEDS: Sodium Chloride 0.9% 1,000 ML IV SCH ×2 (03:03)
[2023-04-18 04:57] LABS: #Basophils 0.1 thou/uL (0.0-0.2); #Eosinphils 0.2 thou/uL (0.0-0.7); #Monocytes 0.8 thou/uL (0.11-0.59); #Neutrophils 6.8 thou/uL (1.40-6.50); %Basophils 0.9 % (0.0-1.0); %Eosinophils 1.7 % (0.0-10.0); %Lymphocytes 12.4 % (21.0-51.0); %Monocytes 8.8 % (0.0-10.0); %Neutrophils 73.5 % (42.0-75.0); Hematocrit 43.3 % (42.0-52.0); Hemoglobin 13.4 g/dL (14.0-18.0); Mean Corpuscular HGB CONC 30.9 g/dL (32.0-36.0); Mean Corpuscular Hemoglobin 24.7 pg (27.0-31.0); Mean Corpuscular Volume 79.9 fl (78.0-98.0); Mean Platelet Volume 8.9 fL (7.4-10.4); Platelet Count 328 10x3/uL (130-400); RBC Distribution Width 19.9 % (11.5-14.5); Red Blood Cell (RBC) Count 5.42 mill/uL (4.70-6.10); White Blood Cell (WBC) Count 9.3 10x3/uL (4.8-10.8)
[2023-04-18 05:20] LABS: ALT (SGPT) 39 U/L (8-55); AST (SGOT) 23 U/L (5-34); Albumin 3.1 g/dL (3.4-4.8); Alkaline Phosphatase 74 U/L (40-110); Anion Gap 17 mmol/L (10-20); BUN (Urea Nitrogen) 16 mg/dL (8.4-25.7); Bilirubin, Total 0.5 mg/dL (0.2-1.2); Calc. Creatinine Clearance 52 mL/min (70-130); Calcium 9.6 mg/dL (7.8-10.44); Carbon Dioxide 21 mmol/L (23-31); Chloride 100 mmol/L (98-107); Estimated GFR 48; Globulin 3.8 g/dL (2.4-3.5); Glucose 99 mg/dL (83-110); Phosphorus 2.7 mg/dL (2.3-4.7); Potassium 4.1 mmol/L (3.5-5.1); Protein, Total 6.9 g/dL (5.8-8.1); Sodium 134 mmol/L (136-145)
[2023-04-18] MEDS ORDERED: Magnesium 2 GM/50 ML(in water) 2 GM in Premix 1 BAG IVPB SCH (08:00)
[2023-04-18 08:34] VITALS: BMI 28.3
[2023-04-18] MEDS: Lisinopril 20 MG TAB PO SCH (08:39)
[2023-04-18] MEDS: Hydrochlorothiazide 25 MG TAB PO SCH (08:40)
[2023-04-18] MEDS: Heparin 5,000 UNITS/ML VIAL SC SCH ×3 (08:41→19:58)
[2023-04-18] MEDS: Pantoprazole 40 MG VIAL IVP SCH ×2 (08:41→19:58)
[2023-04-18] MEDS ORDERED: hydrALAZINE 10 MG TAB PO SCH (09:00)
[2023-04-18] MEDS: Scopolamine 1 mg/72 hour Patch TD SCH (09:13)
[2023-04-18] MEDS: Multivitamins, Adult 10 ML, TRACE ELEMENT CONCENTRATE 1 ML, Fat Emulsion 500 ML in D15W... IV SCH (14:15)
[2023-04-18] MEDS: hydrALAZINE 25 MG TAB PO SCH ×2 (14:15→19:58)
[2023-04-19] MEDS: Metoclopramide HCl 10 MG/2 ML VIAL IVP SCH ×4 (02:13→20:39)
[2023-04-19 06:09] LABS: #Basophils 0.1 thou/uL (0.0-0.2); #Eosinphils 0.2 thou/uL (0.0-0.7); #Monocytes 0.8 thou/uL (0.11-0.59); %Basophils 0.7 % (0.0-1.0); %Lymphocytes 9.3 % (21.0-51.0); %Monocytes 7.7 % (0.0-10.0); %Neutrophils 78.7 % (42.0-75.0); Hematocrit 45.1 % (42.0-52.0); Mean Corpuscular Hemoglobin 24.8 pg (27.0-31.0); Mean Platelet Volume 9.1 fL (7.4-10.4); Platelet Count 313 10x3/uL (130-400); RBC Distribution Width 19.9 % (11.5-14.5); Red Blood Cell (RBC) Count 5.64 mill/uL (4.70-6.10); White Blood Cell (WBC) Count 10.2 10x3/uL (4.8-10.8)
[2023-04-19 06:39] LABS: ALT (SGPT) 28 U/L (8-55); AST (SGOT) 16 U/L (5-34); Albumin 3.3 g/dL (3.4-4.8); Alkaline Phosphatase 71 U/L (40-110); Anion Gap 13 mmol/L (10-20); BUN (Urea Nitrogen) 21 mg/dL (8.4-25.7); Bilirubin, Total 0.4 mg/dL (0.2-1.2); Calc. Creatinine Clearance 62 mL/min (70-130); Calcium 9.7 mg/dL (7.8-10.44); Carbon Dioxide 24 mmol/L (23-31); Chloride 100 mmol/L (98-107); Estimated GFR 59; Globulin 3.9 g/dL (2.4-3.5); Glucose 144 mg/dL (83-110); Potassium 3.6 mmol/L (3.5-5.1); Protein, Total 7.2 g/dL (5.8-8.1); Sodium 133 mmol/L (136-145)
[2023-04-19] MEDS: Lisinopril 20 MG TAB PO SCH (09:21)
[2023-04-19] MEDS: Hydrochlorothiazide 25 MG TAB PO SCH (09:21)
[2023-04-19] MEDS: hydrALAZINE 25 MG TAB PO SCH ×3 (09:21→20:39)
[2023-04-19] MEDS: Pantoprazole 40 MG VIAL IVP SCH ×2 (09:22→20:39)
[2023-04-19] MEDS: Heparin 5,000 UNITS/ML VIAL SC SCH ×3 (09:22→20:39)
[2023-04-19] MEDS ORDERED: Multivitamins, Adult 10 ML, TRACE ELEMENT CONCENTRATE 1 ML in D15W-AA 5% with Lytes 2,0... IV SCH (14:00)
[2023-04-20] MEDS: Ondansetron PF 4 MG/2 ML Vial IVP PRN ×3 (02:00→17:08)
[2023-04-20] MEDS: Metoclopramide HCl 10 MG/2 ML VIAL IVP SCH ×4 (03:22→20:30)
[2023-04-20 05:49] LABS: #Basophils 0.1 thou/uL (0.0-0.2); #Eosinphils 0.1 thou/uL (0.0-0.7); #Monocytes 0.9 thou/uL (0.11-0.59); #Neutrophils 12.4 thou/uL (1.40-6.50); %Basophils 0.4 % (0.0-1.0); %Eosinophils 0.3 % (0.0-10.0); %Lymphocytes 6.8 % (21.0-51.0); %Monocytes 6.4 % (0.0-10.0); %Neutrophils 84.7 % (42.0-75.0); Hematocrit 47.2 % (42.0-52.0); Hemoglobin 14.9 g/dL (14.0-18.0); Mean Corpuscular HGB CONC 31.6 g/dL (32.0-36.0); Mean Corpuscular Volume 79.1 fl (78.0-98.0); Mean Platelet Volume 9.5 fL (7.4-10.4); Platelet Count 359 10x3/uL (130-400); Red Blood Cell (RBC) Count 5.97 mill/uL (4.70-6.10); White Blood Cell (WBC) Count 14.6 10x3/uL (4.8-10.8)
[2023-04-20 06:35] LABS: ALT (SGPT) 24 U/L (8-55); AST (SGOT) 15 U/L (5-34); Albumin 3.4 g/dL (3.4-4.8); Alkaline Phosphatase 77 U/L (40-110); Anion Gap 16 mmol/L (10-20); BUN (Urea Nitrogen) 34 mg/dL (8.4-25.7); Bilirubin, Total 0.5 mg/dL (0.2-1.2); Calc. Creatinine Clearance 55 mL/min (70-130); Carbon Dioxide 22 mmol/L (23-31); Chloride 98 mmol/L (98-107); Estimated GFR 52; Globulin 4.1 g/dL (2.4-3.5); Glucose 157 mg/dL (83-110); Potassium 3.3 mmol/L (3.5-5.1); Protein, Total 7.5 g/dL (5.8-8.1); Sodium 133 mmol/L (136-145)
[2023-04-20] MEDS ORDERED: Promethazine HCl 12.5 MG in Sodium Chloride 0.9% 50 ML IVPB PRN (06:44)
[2023-04-20] MEDS: Potassium Chloride 20 MEQ in Premix 1 BAG IVPB SCH ×2 (07:46→08:52)
[2023-04-20] MEDS: Pantoprazole 40 MG VIAL IVP SCH ×2 (07:47→20:30)
[2023-04-20] MEDS: Lisinopril 20 MG TAB PO SCH ×2 (07:56→08:45)
[2023-04-20] MEDS: Heparin 5,000 UNITS/ML VIAL SC SCH ×3 (07:56→20:29)
[2023-04-20] MEDS: hydrALAZINE 25 MG TAB PO SCH ×6 (07:56→20:30)
[2023-04-20] MEDS: Hydrochlorothiazide 25 MG TAB PO SCH ×3 (07:56→08:45)
[2023-04-20 10:09] LABS: Phosphorus 3.5 mg/dL (2.3-4.7)
[2023-04-20 10:10] LABS: Magnesium 2.1 mg/dL (1.6-2.6)
[2023-04-20] MEDS: HumaLOG 300 UNITS/3 ML VIAL SC PRN ×2 (12:47→18:27)
[2023-04-20] MEDS: Multivitamins, Adult 10 ML, TRACE ELEMENT CONCENTRATE 1 ML, Fat Emulsion 500 ML in D15W... IV SCH (14:51)
[2023-04-21] MEDS: Metoclopramide HCl 10 MG/2 ML VIAL IVP SCH ×4 (03:28→21:37)
[2023-04-21] MEDS: HumaLOG 300 UNITS/3 ML VIAL SC PRN (05:08)
[2023-04-21] MEDS: Ondansetron PF 4 MG/2 ML Vial IVP PRN (05:19)
[2023-04-21 06:35] LABS: #Basophils 0.1 thou/uL (0.0-0.2); #Monocytes 1.4 thou/uL (0.11-0.59); #Neutrophils 19.6 thou/uL (1.40-6.50); %Basophils 0.5 % (0.0-1.0); %Eosinophils 0.2 % (0.0-10.0); %Lymphocytes 4.4 % (21.0-51.0); %Monocytes 6.1 % (0.0-10.0); %Neutrophils 87.7 % (42.0-75.0); Hematocrit 48.6 % (42.0-52.0); Mean Corpuscular HGB CONC 30.9 g/dL (32.0-36.0); Mean Corpuscular Hemoglobin 24.4 pg (27.0-31.0); Mean Corpuscular Volume 78.9 fl (78.0-98.0); Mean Platelet Volume 9.2 fL (7.4-10.4); Platelet Count 318 10x3/uL (130-400); RBC Distribution Width 20.4 % (11.5-14.5); Red Blood Cell (RBC) Count 6.16 mill/uL (4.70-6.10); White Blood Cell (WBC) Count 22.3 10x3/uL (4.8-10.8)
[2023-04-21 07:00] LABS: Anion Gap 14 mmol/L (10-20); BUN (Urea Nitrogen) 40 mg/dL (8.4-25.7); Calc. Creatinine Clearance 56 mL/min (70-130); Calcium 9.9 mg/dL (7.8-10.44); Carbon Dioxide 19 mmol/L (23-31); Chloride 102 mmol/L (98-107); Estimated GFR 53; Glucose 161 mg/dL (83-110); Potassium 3.4 mmol/L (3.5-5.1); Sodium 132 mmol/L (136-145)
[2023-04-21] MEDS: hydrALAZINE 25 MG TAB PO SCH ×3 (08:31→21:37)
[2023-04-21] MEDS: Lisinopril 20 MG TAB PO SCH (08:31)
[2023-04-21] MEDS: Heparin 5,000 UNITS/ML VIAL SC SCH ×3 (08:31→21:37)
[2023-04-21] MEDS: Pantoprazole 40 MG VIAL IVP SCH ×2 (08:32→21:37)
[2023-04-21] MEDS: Hydrochlorothiazide 25 MG TAB PO SCH (08:32)
[2023-04-21] MEDS: Scopolamine 1 mg/72 hour Patch TD SCH (08:32)
[2023-04-21 09:51] LABS: Magnesium 2.1 mg/dL (1.6-2.6)
[2023-04-21] MEDS ORDERED: Piperacillin/Tazobactam 4.5 GM in Sodium Chloride 0.9% 100 ML IVPB SCH (12:00)
[2023-04-21] MEDS ORDERED: Piperacillin/Tazobactam 3.375 GM in Sodium Chloride 0.9% 100 ML IVPB SCH (15:00)
[2023-04-21] MEDS: SODIUM CHLORIDE IV SCH (16:38)
[2023-04-21] MEDS: TRACE ELEMENT IV SCH (16:38)
[2023-04-21] MEDS: MULTIVITAMINS IV SCH (16:38)
[2023-04-21] MEDS: [UNRECOGNIZED DRUG - OTHER] IV SCH (16:38)
[2023-04-21] MEDS: Piperacillin/Tazobactam 3.375 GM in Sodium Chloride 0.9% 100 ML IVPB SCH (21:36)
[2023-04-22] MEDS: Piperacillin/Tazobactam 3.375 GM in Sodium Chloride 0.9% 100 ML IVPB SCH ×3 (05:12→21:20)
[2023-04-22] MEDS: Metoclopramide HCl 10 MG/2 ML VIAL IVP SCH ×2 (05:12→08:50)
[2023-04-22 06:38] LABS: Hematocrit 45.8 % (42.0-52.0); Hemoglobin 14.5 g/dL (14.0-18.0); Manual Diff?? YES; Mean Corpuscular HGB CONC 31.7 g/dL (32.0-36.0); Mean Corpuscular Hemoglobin 25.3 pg (27.0-31.0); Mean Corpuscular Volume 79.8 fl (78.0-98.0); Mean Platelet Volume 9.4 fL (7.4-10.4); Platelet Count 334 10x3/uL (130-400); RBC Distribution Width 20.6 % (11.5-14.5); Red Blood Cell (RBC) Count 5.74 mill/uL (4.70-6.10); White Blood Cell (WBC) Count 27.8 10x3/uL (4.8-10.8)
[2023-04-22 06:52] LABS: Delete Auto Diff?? YES
[2023-04-22 07:01] LABS: Anion Gap 15 mmol/L (10-20); BUN (Urea Nitrogen) 60 mg/dL (8.4-25.7); Calc. Creatinine Clearance 38 mL/min (70-130); Calcium 9.8 mg/dL (7.8-10.44); Carbon Dioxide 18 mmol/L (23-31); Chloride 103 mmol/L (98-107); Estimated GFR 33; Glucose 184 mg/dL (83-110); Potassium 3.5 mmol/L (3.5-5.1); Sodium 132 mmol/L (136-145)
[2023-04-22 08:04] LABS: Band 5 % (5-11); Burr Cells SLIGHT = 2-5 cells HPF (0-1); CellaVision Operator ID LAB.CMB; Elliptocytes SLIGHT = 2-5 cells HPF (0-1); Lymphocytes 1 % (21-51); Macrocytosis SLIGHT = 6-15 cells HPF (0-5); Monocytes 3 % (0-10); Neutrophil 91 % (42-75); Ovalocytes SLIGHT = 2-5 cells HPF (0-1); Platelet Adequacy Comment Platelets Normal; Polychromasia SLIGHT = 2-3 cells HPF (0-2); Total Cell Count 101
[2023-04-22] MEDS: Lactated Ringer's 1,000 ML IV SCH ×2 (08:47→21:29)
[2023-04-22] MEDS: Heparin 5,000 UNITS/ML VIAL SC SCH ×3 (08:49→21:20)
[2023-04-22] MEDS: Lisinopril 20 MG TAB PO SCH (08:50)
[2023-04-22] MEDS: Hydrochlorothiazide 25 MG TAB PO SCH (08:50)
[2023-04-22] MEDS: hydrALAZINE 25 MG TAB PO SCH ×3 (08:50→21:20)
[2023-04-22] MEDS: Pantoprazole 40 MG VIAL IVP SCH ×2 (08:50→21:20)
[2023-04-22] MEDS: TRACE ELEMENT IV SCH (14:22)
[2023-04-22] MEDS: [UNRECOGNIZED DRUG - OTHER] IV SCH (14:22)
[2023-04-22] MEDS: SODIUM CHLORIDE IV SCH (14:22)
[2023-04-22] MEDS: MULTIVITAMINS IV SCH (14:22)
[2023-04-23] MEDS: Piperacillin/Tazobactam 3.375 GM in Sodium Chloride 0.9% 100 ML IVPB SCH ×3 (05:57→22:57)
[2023-04-23] MEDS: HumaLOG 300 UNITS/3 ML VIAL SC PRN (05:58)
[2023-04-23 06:41] LABS: Hematocrit 42.8 % (42.0-52.0); Hemoglobin 13.4 g/dL (14.0-18.0); Manual Diff?? YES; Mean Corpuscular HGB CONC 31.3 g/dL (32.0-36.0); Mean Corpuscular Hemoglobin 24.9 pg (27.0-31.0); Mean Corpuscular Volume 79.6 fl (78.0-98.0); Platelet Count 320 10x3/uL (130-400); RBC Distribution Width 20.2 % (11.5-14.5); Red Blood Cell (RBC) Count 5.38 mill/uL (4.70-6.10)
[2023-04-23 06:44] LABS: Delete Auto Diff?? YES
[2023-04-23 07:04] LABS: Anion Gap 15 mmol/L (10-20); BUN (Urea Nitrogen) 63 mg/dL (8.4-25.7); Calc. Creatinine Clearance 40 mL/min (70-130); Carbon Dioxide 17 mmol/L (23-31); Chloride 107 mmol/L (98-107); Estimated GFR 35; Glucose 155 mg/dL (83-110); Potassium 3.4 mmol/L (3.5-5.1); Sodium 136 mmol/L (136-145)
[2023-04-23 07:17] LABS: Anisocytosis SLIGHT = 6-15 cells HPF (0-5); Band 12 % (5-11); CellaVision Operator ID lab.dlt; Eosinophils 1 % (0-10); Lymphocytes 4 % (21-51); Monocytes 5 % (0-10); Neutrophil 78 % (42-75); Ovalocytes SLIGHT = 2-5 cells HPF (0-1); Platelet Adequacy Comment Platelets Normal; Poikilocytosis SLIGHT = 6-15 cells HPF (0-5); Polychromasia SLIGHT = 2-3 cells HPF (0-2); Total Cell Count 100
[2023-04-23] MEDS: Potassium Chloride 20 MEQ in Premix 1 BAG IVPB SCH ×2 (08:02→10:04)
[2023-04-23] MEDS: Pantoprazole 40 MG VIAL IVP SCH ×2 (08:03→20:51)
[2023-04-23] MEDS: Lisinopril 20 MG TAB PO SCH (08:03)
[2023-04-23] MEDS: Hydrochlorothiazide 25 MG TAB PO SCH (08:03)
[2023-04-23] MEDS: Heparin 5,000 UNITS/ML VIAL SC SCH ×3 (08:03→20:50)
[2023-04-23] MEDS: hydrALAZINE 25 MG TAB PO SCH ×3 (08:03→20:50)
[2023-04-23] MEDS: Lactated Ringer's 1,000 ML IV SCH ×2 (10:33→22:57)
[2023-04-23] MEDS ORDERED: MULTIVITAMINS IV SCH (14:00)
[2023-04-23] MEDS ORDERED: [UNRECOGNIZED DRUG - OTHER] IV SCH (14:00)
[2023-04-23] MEDS ORDERED: TRACE ELEMENT IV SCH (14:00)
[2023-04-23] MEDS ORDERED: FAT EMULSION IV SCH (14:00)
[2023-04-23] MEDS: [UNRECOGNIZED DRUG - OTHER] IV SCH ×2 (14:03→19:00)
[2023-04-23] MEDS: FAT EMULSION IV SCH ×2 (14:03→19:00)
[2023-04-23] MEDS: MULTIVITAMINS IV SCH ×2 (14:03→19:00)
[2023-04-23] MEDS: TRACE ELEMENT IV SCH ×2 (14:03→19:00)
[2023-04-23 16:55] LABS: Campy jejuni + coli by PCR Negative (Negative); STEC Shiga Toxin 1+2 Negative (Negative); Salmonella spp. by PCR Negative (Negative); Shigella spp + EIEC by PCR Negative (Negative)
[2023-04-23 18:50] LABS: Anion Gap 9 mmol/L (10-20); BUN (Urea Nitrogen) 64 mg/dL (8.4-25.7); Calc. Creatinine Clearance 38 mL/min (70-130); Calcium 9.8 mg/dL (7.8-10.44); Carbon Dioxide 17 mmol/L (23-31); Chloride 111 mmol/L (98-107); Estimated GFR 33; Glucose 174 mg/dL (83-110); Sodium 133 mmol/L (136-145)
[2023-04-24] MEDS ORDERED: Loperamide HCl 2 MG CAP PO SCH (02:00)
[2023-04-24] MEDS: HumaLOG 300 UNITS/3 ML VIAL SC PRN (05:29)
[2023-04-24] MEDS: Piperacillin/Tazobactam 3.375 GM in Sodium Chloride 0.9% 100 ML IVPB SCH (05:29)
[2023-04-24 06:06] LABS: Hematocrit 42.4 % (42.0-52.0); Hemoglobin 13.1 g/dL (14.0-18.0); Manual Diff?? YES; Mean Corpuscular HGB CONC 30.9 g/dL (32.0-36.0); Mean Corpuscular Hemoglobin 24.9 pg (27.0-31.0); Mean Corpuscular Volume 80.6 fl (78.0-98.0); Mean Platelet Volume 9.3 fL (7.4-10.4); Platelet Count 327 10x3/uL (130-400); RBC Distribution Width 20.3 % (11.5-14.5); Red Blood Cell (RBC) Count 5.26 mill/uL (4.70-6.10); White Blood Cell (WBC) Count 26.1 10x3/uL (4.8-10.8)
[2023-04-24 06:30] LABS: Delete Auto Diff?? YES
[2023-04-24 06:40] LABS: Anion Gap 13 mmol/L (10-20); BUN (Urea Nitrogen) 60 mg/dL (8.4-25.7); Calc. Creatinine Clearance 39 mL/min (70-130); Calcium 10.2 mg/dL (7.8-10.44); Carbon Dioxide 16 mmol/L (23-31); Chloride 111 mmol/L (98-107); Estimated GFR 34; Glucose 152 mg/dL (83-110); Potassium 3.9 mmol/L (3.5-5.1); Sodium 136 mmol/L (136-145)
[2023-04-24 07:12] LABS: Anisocytosis SLIGHT = 6-15 cells HPF (0-5); Band 13 % (5-11); Burr Cells SLIGHT = 2-5 cells HPF (0-1); CellaVision Operator ID LAB.JMM; Elliptocytes SLIGHT = 2-5 cells HPF (0-1); Lymphocytes 2 % (21-51); Macrocytosis SLIGHT = 6-15 cells HPF (0-5); Metamyelocyte 1 % (0-0); Monocytes 8 % (0-10); Neutrophil 75 % (42-75); Platelet Adequacy Comment Platelets Normal; Poikilocytosis SLIGHT = 6-15 cells HPF (0-5); Polychromasia SLIGHT = 2-3 cells HPF (0-2); Reactive Lymphocytes 2 % (0-10); Smudge Cells 8.8 %; Total Cell Count 102
[2023-04-24] MEDS: Lisinopril 20 MG TAB PO SCH ×2 (09:08→09:58)
[2023-04-24] MEDS: Loperamide HCl 2 MG CAP PO PRN ×2 (09:08→21:24)
[2023-04-24] MEDS: Hydrochlorothiazide 25 MG TAB PO SCH ×2 (09:09→09:58)
[2023-04-24] MEDS: hydrALAZINE 25 MG TAB PO SCH ×4 (09:09→21:24)
[2023-04-24] MEDS: Scopolamine 1 mg/72 hour Patch TD SCH (09:09)
[2023-04-24] MEDS: Pantoprazole 40 MG VIAL IVP SCH ×2 (09:11→21:25)
[2023-04-24] MEDS: Heparin 5,000 UNITS/ML VIAL SC SCH ×3 (09:11→21:25)
[2023-04-24] MEDS ORDERED: Vancomycin 1 GM in Premix 1 BAG IVPB SCH (12:29)
[2023-04-24] MEDS ORDERED: VANCOMYCIN IVPB PRN (13:28)
[2023-04-24] MEDS ORDERED: Vancomycin (BATCH) 2 GM in Premix 1 BAG IVPB SCH (13:30)
[2023-04-24] MEDS ORDERED: Vancomycin Dose by Levels Sliding Scale (Wt 71-99) FS SCH (13:30)
[2023-04-24 13:31] LABS: Vancomycin, Trough Less than 1.1 ug/mL
[2023-04-24 13:53] LABS: Cardiac Risk 6.2 (Less than 4.5)
[2023-04-24] MEDS ORDERED: MULTIVITAMINS IV SCH ×2 (14:00)
[2023-04-24] MEDS ORDERED: SODIUM CHLORIDE IV SCH (14:00)
[2023-04-24] MEDS ORDERED: TRACE ELEMENT IV SCH ×2 (14:00)
[2023-04-24] MEDS ORDERED: [UNRECOGNIZED DRUG - OTHER] IV SCH (14:00)
[2023-04-24] MEDS ORDERED: [UNRECOGNIZED DRUG - OTHER] IV SCH (14:00)
[2023-04-24] MEDS ORDERED: SODIUM ACETATE IV SCH (14:00)
[2023-04-24] MEDS: Lactated Ringer's 1,000 ML IV SCH (14:43)
[2023-04-24] MEDS: cefTRIAXone\\ROCEPHIN 1 GM in Sodium Chloride 0.9% 100 ML IVPB SCH (14:44)
[2023-04-25] MEDS: Lactated Ringer's 1,000 ML IV SCH ×2 (05:35→15:51)
[2023-04-25 06:03] LABS: #Basophils 0.2 thou/uL (0.0-0.2); #Eosinphils 0.4 thou/uL (0.0-0.7); #Monocytes 1.7 thou/uL (0.11-0.59); #Neutrophils 15.1 thou/uL (1.40-6.50); %Basophils 0.9 % (0.0-1.0); %Eosinophils 2.3 % (0.0-10.0); %Lymphocytes 6.9 % (21.0-51.0); %Monocytes 8.8 % (0.0-10.0); Mean Corpuscular HGB CONC 31.7 g/dL (32.0-36.0); Mean Corpuscular Hemoglobin 24.9 pg (27.0-31.0); Mean Corpuscular Volume 78.5 fl (78.0-98.0); Mean Platelet Volume 9.8 fL (7.4-10.4); Platelet Count 332 10x3/uL (130-400); RBC Distribution Width 20.5 % (11.5-14.5); Red Blood Cell (RBC) Count 5.22 mill/uL (4.70-6.10); White Blood Cell (WBC) Count 19.3 10x3/uL (4.8-10.8)
[2023-04-25] MEDS: Lisinopril 20 MG TAB PO SCH (08:15)
[2023-04-25] MEDS: Pantoprazole 40 MG VIAL IVP SCH ×2 (08:15→20:29)
[2023-04-25] MEDS: Hydrochlorothiazide 25 MG TAB PO SCH (08:15)
[2023-04-25] MEDS: Heparin 5,000 UNITS/ML VIAL SC SCH ×3 (08:15→20:34)
[2023-04-25] MEDS: hydrALAZINE 25 MG TAB PO SCH ×3 (08:15→20:29)
[2023-04-25 08:44] LABS: Anion Gap 11 mmol/L (10-20); BUN (Urea Nitrogen) 49 mg/dL (8.4-25.7); Calc. Creatinine Clearance 50 mL/min (70-130); Carbon Dioxide 20 mmol/L (23-31); Estimated GFR 47; Magnesium 2.2 mg/dL (1.6-2.6)
[2023-04-25] MEDS ORDERED: Saccharomyces boulardii 250 MG CAP PO SCH (09:45)
[2023-04-25] MEDS ORDERED: Cholestyramine/Aspartame 4 gm Packet PO SCH (10:00)
[2023-04-25] MEDS: Ondansetron PF 4 MG/2 ML Vial IVP SCH ×3 (10:49→22:24)
[2023-04-25 11:44] LABS: Chloride 110 mmol/L (98-107); Potassium 4.1 mmol/L (3.5-5.1); Sodium 139 mmol/L (136-145)
[2023-04-25 11:45] LABS: Calcium 10.2 mg/dL (7.8-10.44); Glucose 101 mg/dL (83-110)
[2023-04-25 11:49] LABS: Phosphorus 2.6 mg/dL (2.3-4.7)
[2023-04-25 13:23] LABS: Vancomycin, Random 13.9 ug/mL (See Comment)
[2023-04-25] MEDS: cefTRIAXone\\ROCEPHIN 1 GM in Sodium Chloride 0.9% 100 ML IVPB SCH (13:28)
[2023-04-25] MEDS ORDERED: TRACE ELEMENT IV SCH (14:00)
[2023-04-25] MEDS ORDERED: [UNRECOGNIZED DRUG - OTHER] IV SCH (14:00)
[2023-04-25] MEDS ORDERED: MULTIVITAMINS IV SCH (14:00)
[2023-04-25] MEDS ORDERED: FAT EMULSION IV SCH (14:00)
[2023-04-25] MEDS: Vancomycin 1 GM in Premix 1 BAG IVPB SCH (14:44)
[2023-04-25] MEDS ORDERED: Morphine 2 MG/ML VIAL SLOW IVP SCH (15:30)
[2023-04-26] MEDS: Ondansetron PF 4 MG/2 ML Vial IVP SCH ×3 (04:18→15:02)
[2023-04-26] MEDS: Lactated Ringer's 1,000 ML IV SCH (04:18)
[2023-04-26 06:14] LABS: Hematocrit 41.5 % (42.0-52.0); Hemoglobin 13.1 g/dL (14.0-18.0); Manual Diff?? YES; Mean Corpuscular HGB CONC 31.6 g/dL (32.0-36.0); Mean Corpuscular Hemoglobin 25.1 pg (27.0-31.0); Mean Corpuscular Volume 79.5 fl (78.0-98.0); Mean Platelet Volume 9.6 fL (7.4-10.4); Platelet Count 296 10x3/uL (130-400); RBC Distribution Width 20.3 % (11.5-14.5); Red Blood Cell (RBC) Count 5.22 mill/uL (4.70-6.10); White Blood Cell (WBC) Count 20.7 10x3/uL (4.8-10.8)
[2023-04-26 06:42] LABS: Delete Auto Diff?? YES
[2023-04-26 06:49] LABS: Anion Gap 14 mmol/L (10-20); BUN (Urea Nitrogen) 42 mg/dL (8.4-25.7); Calc. Creatinine Clearance 56 mL/min (70-130); Calcium 9.8 mg/dL (7.8-10.44); Carbon Dioxide 20 mmol/L (23-31); Chloride 106 mmol/L (98-107); Estimated GFR 53; Glucose 168 mg/dL (83-110); Potassium 4.2 mmol/L (3.5-5.1); Sodium 136 mmol/L (136-145)
[2023-04-26 08:10] LABS: Band 28 % (5-11); Lymphocytes 9 % (21-51); Metamyelocyte 1 % (0-0); Monocytes 7 % (0-10); Neutrophil 53 % (42-75); Promyelocytes 1 % (0-0); Reactive Lymphocytes 1 % (0-10)
[2023-04-26 08:11] LABS: Platelet Adequacy Comment Appears Adequate; Polychromasia SLIGHT = 2-3 cells (100X) (0-2/hpf)
[2023-04-26] MEDS: Pantoprazole 40 MG VIAL IVP SCH ×2 (08:24→21:33)
[2023-04-26] MEDS: Heparin 5,000 UNITS/ML VIAL SC SCH ×2 (08:24→15:02)
[2023-04-26] MEDS: hydrALAZINE 25 MG TAB PO SCH ×3 (09:21→21:33)
[2023-04-26] MEDS: Hydrochlorothiazide 25 MG TAB PO SCH (09:21)
[2023-04-26] MEDS: Lisinopril 20 MG TAB PO SCH (09:21)
[2023-04-26] MEDS: Saccharomyces boulardii 250 MG CAP PO SCH (09:22)
[2023-04-26] MEDS: cefTRIAXone\\ROCEPHIN 1 GM in Sodium Chloride 0.9% 100 ML IVPB SCH (12:50)
[2023-04-26] MEDS ORDERED: TRACE ELEMENT IV SCH (14:00)
[2023-04-26] MEDS ORDERED: MULTIVITAMINS IV SCH (14:00)
[2023-04-26] MEDS ORDERED: [UNRECOGNIZED DRUG - OTHER] IV SCH (14:00)
[2023-04-26] MEDS ORDERED: SODIUM ACETATE IV SCH (14:00)
[2023-04-26] MEDS: Vancomycin 1 GM in Premix 1 BAG IVPB SCH (15:02)
[2023-04-26] MEDS ORDERED: Morphine 4 MG/ML VIAL SLOW IVP PRN (16:31)
[2023-04-26] MEDS ORDERED: Morphine 2 MG/ML VIAL SLOW IVP PRN (16:32)
[2023-04-26] MEDS ORDERED: traMADol HCl 50 MG TAB PO PRN (16:41)
[2023-04-26] MEDS: Ondansetron ODT 8 MG TAB PO SCH ×2 (21:33→21:35)
[2023-04-27] MEDS: Ondansetron ODT 8 MG TAB PO SCH ×2 (02:44→08:20)
[2023-04-27] MEDS: Hydrochlorothiazide 25 MG TAB PO SCH (08:19)
[2023-04-27] MEDS: hydrALAZINE 25 MG TAB PO SCH ×3 (08:19→20:23)
[2023-04-27] MEDS: Lisinopril 20 MG TAB PO SCH (08:20)
[2023-04-27] MEDS: Saccharomyces boulardii 250 MG CAP PO SCH (08:20)
[2023-04-27] MEDS: Scopolamine 1 mg/72 hour Patch TD SCH (08:20)
[2023-04-27] MEDS: Pantoprazole 40 MG VIAL IVP SCH ×2 (08:20→20:23)
[2023-04-27] MEDS ORDERED: Fentanyl 100 MCG/2 ML VIAL SLOW IVP PRN ×2 (08:42→08:44)
[2023-04-27] MEDS ORDERED: Fentanyl 100 MCG/2 ML VIAL SLOW IVP SCH (10:23)
[2023-04-27] MEDS: Ondansetron PF 4 MG/2 ML Vial IVP SCH ×2 (13:13→18:45)
[2023-04-27] MEDS ORDERED: [UNRECOGNIZED DRUG - OTHER] IV SCH (14:00)
[2023-04-27] MEDS ORDERED: FAT EMULSION IV SCH (14:00)
[2023-04-27] MEDS ORDERED: TRACE ELEMENT IV SCH (14:00)
[2023-04-27] MEDS ORDERED: MULTIVITAMINS IV SCH (14:00)
[2023-04-27 23:35] VITALS: BP 137/77; TEMP 98.4
[2023-04-28] MEDS: Ondansetron PF 4 MG/2 ML Vial IVP SCH (00:22)
== END 2023-04-28 03:30 | disposition expired | DRG 871 ==
LOC: ERS 08:14 → ERHOLD 11:33 → OBSVTOIN 11:33 → 2NO 16:01 → CCU 03-31 00:24 → 2SE 04-02 17:31 → IMCU/EMU 04-10 15:57 → 2NO 04-14 17:10 → T4-B 04-18 10:53
PROVIDERS: ADMIT Student in an Organized Health Care Education/Training Program; ATTEND Student in an Organized Health Care Education/Training Program
PROC: 0DH67UZ Insertion of Feeding Device into Stomach, Via Natural or Artificial Opening (ICD-10-PCS; principal; 2023-03-30)
PROC: 3E0G76Z Introduction of Nutritional Substance into Upper GI, Via Natural or Artificial Opening (ICD-10-PCS; 2023-03-30)
PROC: 4A133R1 Monitoring of Arterial Saturation, Peripheral, Percutaneous Approach (ICD-10-PCS; 2023-03-30)
PROC: 3E03329 Introduction of Other Anti-infective into Peripheral Vein, Percutaneous Approach (ICD-10-PCS; 2023-03-30)
PROC: 02HV33Z Insertion of Infusion Device into Superior Vena Cava, Percutaneous Approach (ICD-10-PCS; 2023-04-16)
PROC: B5181ZA Fluoroscopy of Superior Vena Cava using Low Osmolar Contrast, Guidance (ICD-10-PCS; 2023-04-17)
DX: A41.9 Sepsis, unspecified organism (principal); J69.0 Pneumonitis due to inhalation of food and vomit; J96.01 Acute respiratory failure with hypoxia; Z51.5 Encounter for palliative care; Z66 Do not resuscitate; K55.059 Acute (reversible) ischemia of intestine, part and extent unspecified; K55.069 Acute infarction of intestine, part and extent unspecified; E87.20 Acidosis, unspecified; N17.9 Acute kidney failure, unspecified; N39.0 Urinary tract infection, site not specified; E87.1 Hypo-osmolality and hyponatremia; I44.2 Atrioventricular block, complete; I82.502 Chronic embolism and thrombosis of unspecified deep veins of left lower extremity; K56.699 Other intestinal obstruction unspecified as to partial versus complete obstruction; I47.10 Supraventricular tachycardia, unspecified; E87.0 Hyperosmolality and hypernatremia; K55.1 Chronic vascular disorders of intestine; R19.7 Diarrhea, unspecified; I12.9 Hypertensive chronic kidney disease with stage 1 through stage 4 chronic kidney disease, or unspecified chronic kidney disease; N18.30 Chronic kidney disease, stage 3 unspecified; J44.9 Chronic obstructive pulmonary disease, unspecified; E78.5 Hyperlipidemia, unspecified; I71.40 Abdominal aortic aneurysm, without rupture, unspecified; I16.0 Hypertensive urgency; E11.65 Type 2 diabetes mellitus with hyperglycemia; E86.0 Dehydration; E87.6 Hypokalemia; R79.89 Other specified abnormal findings of blood chemistry; I70.8 Atherosclerosis of other arteries; I49.5 Sick sinus syndrome; Z88.5 Allergy status to narcotic agent; Z79.899 Other long term (current) drug therapy; Z86.73 Personal history of transient ischemic attack (TIA), and cerebral infarction without residual deficits; Z90.49 Acquired absence of other specified parts of digestive tract; Z87.891 Personal history of nicotine dependence; E05.80 Other thyrotoxicosis without thyrotoxic crisis or storm; R53.81 Other malaise; Z74.01 Bed confinement status
CPT/HCPCS: 36415; 36416; 36569; 71045; 74018; 74022; 74176; 74177; 74250; 80048; 80053; 80061; 80076; 80202; 81001; 82550; 82805; 83036; 83605; 83690; 83735; 83880; 84100; 84145; 84439; 84443; 84484; 85025; 87040; 87070; 87077; 87081; 87086; 87186; 87205; 87324; 87449; 87505; 93005; 93010; 93306; 93970; 94640; 96361; 96365; 96375; C1751; C9113; J0360; J0696; J1250; J1644; J1815; J1940; J2405; J2543; J2765; J3010; J3370; J3370-JW; J3475; J3480; J3490; J7050; J7120; J7620; Q0162; Q0169; Q9967